=== PATIENT | female | born 1940 | race Caucasian/White ===

== ENCOUNTER → 2016-03-19 | Outpatient (REF) | payer MEDICARE ==
[~2016-03-19] MED LIST: /AMLO25TA PO; /FENO48TA PO; /OMEP10CA OR; ARIC5TAB PO; CEPH2CAP PO; CIPR250T3 PO; CO Q 10 PO; CQ 10 PO; CRAN400T2 PO; CRANBERRY PO; CRES20TA PO; FIBERCON PO; FISH100035 PO; GLIP5TAB2 OR; GLIP5TAB2 PO; GLUC850T PO; JANUVIA PO; LISI5TAB OR; MACR100C3 PO; MYRB25TA PO; OXYB5TAB5 OR; PRIL20CA PO; ROSU10TA OR; SENO8.6T9 PO; SERT25TA2 OR; SIMV20TA2 PO; STOOL SOFTNER PO; TYLE325T5 PO; VIT D 2000 PO; VITA50TA12 OR; ZOLO50TA PO; evista PO
[2016-03-19 10:47] LABS: MEAN CORPUSCULAR VOLUME 84.7 fl (80.0-96.0); RED CELL DISTRIBUTION WIDTH 15.2 % (11.5-14.5); WHITE BLOOD COUNT 6.3 K/mm3 (4.0-10.0)
[2016-03-19 11:18] LABS: CALCIUM LEVEL 8.4 MG/DL (8.8-10.2); CREATININE FOR GFR 1.18 MG/DL (0.55-1.02); GLOMERULAR FILTRATION RATE 47.2 (>39); POTASSIUM SERUM 4.3 MEQ/L (3.5-5.1)
== END ==
PROVIDERS: ATTEND Internal Medicine
DX: I10 Essential (primary) hypertension (principal)

== ENCOUNTER → 2016-05-06 | Outpatient (CLI) | payer MEDICARE, MEDICAID ==
[~2016-05-06] MED LIST changes: +E-Z PAQUE 60% w/v SUSP 355ML BOTTLE As Ordered ONE; +VARIBAR NECTAR 40% w/v 240ML SUSP BTL As Ordered ONE; +VARIBAR PUDDING 40% w/v 230ML TUBE As Ordered ONE
--- NOTE | 2016-05-06 11:26 | REP ---
Clinical: Dysphasia. Technique: Real time fluoroscopic evaluation in conjunction with speech pathology. Findings: Examination demonstrates normal deglutition and peristalsis through the oropharynx and visualized upper esophagus. No evidence for aspiration or laryngeal penetration. Surrounding soft tissues and osseous structures are normal. Total fluoroscopic time 1 minute 14 seconds . Impression: Normal modified barium swallow examination. Signed by Louis Mayorga MD 05/06/2016 11:17 A
== END ==
LOC: M RAD 10:29
PROVIDERS: ATTEND Family Medicine
DX: R13.10 Dysphagia, unspecified (principal)
CPT/HCPCS: 74230; 92611; G8996; G8997; G8998

== ENCOUNTER → 2016-05-07 | Outpatient (REF) | payer MEDICARE, MEDICAID ==
[~2016-05-07] MED LIST changes: -E-Z PAQUE 60% w/v SUSP 355ML BOTTLE As Ordered ONE; -VARIBAR NECTAR 40% w/v 240ML SUSP BTL As Ordered ONE; -VARIBAR PUDDING 40% w/v 230ML TUBE As Ordered ONE
[2016-05-07 09:29] LABS: MEAN CORPUSCULAR HEMOGLOBIN 28.7 pg (27.0-33.0); MEAN CORPUSCULAR HGB CONC 33.7 g/dl (32.0-36.5); MEAN CORPUSCULAR VOLUME 85.4 fl (80.0-96.0); RED CELL DISTRIBUTION WIDTH 13.8 % (11.5-14.5); WHITE BLOOD COUNT 5.5 K/mm3 (4.0-10.0)
[2016-05-07 09:50] LABS: ALBUMIN 3.4 GM/DL (3.2-5.2); ALBUMIN/GLOBULIN RATIO 1.13 (1.00-1.93); BILIRUBIN,TOTAL 0.3 MG/DL (0.2-1.0); CALCIUM LEVEL 8.9 MG/DL (8.8-10.2); CREATININE FOR GFR 1.05 MG/DL (0.55-1.02); POTASSIUM SERUM 4.1 MEQ/L (3.5-5.1); TOTAL PROTEIN 6.4 GM/DL (6.4-8.2)
== END ==
PROVIDERS: ATTEND Family Medicine
DX: E55.9 Vitamin D deficiency, unspecified (principal); E11.9 Type 2 diabetes mellitus without complications

== ENCOUNTER → 2016-05-25 | Outpatient (REF) | payer MEDICARE, MEDICAID | LOC: M LAB REF 16:58 | PROVIDERS: ATTEND Family Medicine | DX: N39.0 Urinary tract infection, site not specified (principal) ==

== ENCOUNTER → 2016-05-28 | Outpatient (CLI) | payer MEDICARE, MEDICAID ==
--- NOTE | 2016-05-28 14:08 | REP ---
LUMBAR SPINE SERIES: Five views. HISTORY: Low back pain. COMPARISON STUDY: June 24 2006. FINDINGS: Lumbar vertebral body heights are preserved and alignment is normal. There is degenerative disc disease with narrowing and sclerosis about the L3-4 disc. Degenerative disc changes are seen and L2-3 and L1-2 to a lesser degree. These changes are more pronounced than on the June 2006 prior study, particularly at L3-4. No fracture or collapse is seen. There is osteoarthritic facet hypertrophy and sclerosis bilaterally at L5-S1 and at L3-4. No bony destructive lesion is seen. Sacrum and SI joints are intact. There is some retained oral barium in left colonic diverticula indicating left colonic diverticulosis. IMPRESSION: Degenerative spondylosis changes. Degenerative disc disease is more pronounced than on the 2006 prior study. Left colonic diverticulosis. Signed by Timothy Olson MD 05/28/2016 03:18 P
== END ==
LOC: M RAD 13:21
PROVIDERS: ATTEND Family Medicine
DX: M54.5 Low back pain (principal); M47.816 Spondylosis without myelopathy or radiculopathy, lumbar region; M51.36 Other intervertebral disc degeneration, lumbar region; K57.30 Diverticulosis of large intestine without perforation or abscess without bleeding

== ENCOUNTER → 2016-06-27 | Outpatient (REF) | payer MEDICARE, MEDICAID | LOC: M LAB REF 22:00 | PROVIDERS: ATTEND Family Medicine | DX: R30.0 Dysuria (principal) ==

== ENCOUNTER 2016-09-09 05:51 | Emergency (ER) | payer MEDICARE, MEDICAID ==
[~2016-09-09] VITALS: Ht 152.4 cm; Wt 82.3 kg
[2016-09-09] MEDS ORDERED: ASPI81TA85 PO (06:33)
[2016-09-09] MEDS ORDERED: AMLO10TA PO (06:33)
[2016-09-09] MEDS ORDERED: VITA400C35 PO (06:33)
[2016-09-09] MEDS ORDERED: PLAV1TAB2 PO (06:33)
[2016-09-09] MEDS ORDERED: DULO30CA PO (06:33)
[2016-09-09] MEDS ORDERED: GLIP-162 PO (06:33)
[2016-09-09] MEDS ORDERED: TRAM50TA2 PO (06:33)
[2016-09-09] MEDS ORDERED: CO Q30CA PO (06:33)
[2016-09-09] MEDS ORDERED: MELA5TAB21 PO (06:33)
[2016-09-09] MEDS ORDERED: PRESCAP6 PO (06:33)
[2016-09-09] MEDS ORDERED: ATOR40TA75 PO (06:33)
[2016-09-09] MEDS ORDERED: TUMS500C PO (06:33)
[2016-09-09] MEDS ORDERED: VITA-137 PO (06:33)
[2016-09-09] MEDS ORDERED: SITA50TAB PO (06:33)
[2016-09-09] MEDS ORDERED: NYST1POW9 TOP (06:33)
[2016-09-09] MEDS ORDERED: COLA100C5 PO (06:33)
[2016-09-09] MEDS ORDERED: RANI1TAB38 PO (06:33)
--- NOTE | 2016-09-09 07:00 | REPUSA ---
CLINICAL HISTORY: Trauma. TECHNIQUE: Multiple axial CT images were obtained through the brain without IV contrast material. COMMENTS: Left frontal/ temporal subgaleal soft tissue hematoma. There is normal configuration of sella turcica. There are no intra or extra-axial collections. There is no mass effect or midline shift. There is no evidence of hematoma formation. No hydrocephalus is p resent. The ventricles are symmetrical. No abnormal calcifications are present. There is diffuse age-appropriate cerebellar and cerebral atrophy with proportionally dilated ventricl es and cortical sulci. There are bilateral periventricular and subcortical white matter hypolucencies compatible with mild c hronic microvascular disease. Otherwise, no significant focal abnormalities are seen either in the posterior fossa or supratentoria l compartment. IMPRESSION: 1. Age-appropriate cerebellar and cerebral atrophy. 2. Mild chronic microvascular disease. 3. No evidence of acute intracranial pathology. 4. Left frontal/ temporal subgaleal soft tissue hematoma. Thank you for your kind referral of this patient.
--- NOTE | 2016-09-09 07:10 | REPUSA ---
CLINICAL HISTORY: Neck pain. TECHNIQUE: Multiple axial images were obtained through the cervical spine. Images were also reconstru cted in coronal and sagittal planes. The study was performed without IV contrast. COMMENTS: Grade 1 anterolisthesis of C4 on C5. Grade one anterolisthesis of C5 on C6. There is no fracture or spondylolisthesis visualized. The paraspinal soft tissues are unremarkable. T here are no lytic or blastic lesions. Straightening of cervical lordosis is seen, suggesting muscular spasm. There is evidence of moderate multilevel disk disease, demonstrated by osteophytosis and endplate sclerosis. Thyromegaly with bilateral hypodense nodules. No airway narrowing or deviation. IMPRESSION: 1. No fracture. 2. Straightening of cervical lordosis is seen, suggesting muscular spasm. 3. Multilevel spondylosis. Thank you for your kind referral of this patient.
[2016-09-09] MEDS ORDERED: TETANUS/DIPHTHERIA TOX ADSORB ADULT 0.5ML SYR/VIAL (90714) IM ONE (07:15)
[2016-09-09] MEDS ORDERED: NORCO, ANEXSIA 5/325MG TABLET (HYDROcodone/ACETAMINOPHEN) PO ONE (07:15)
[2016-09-09 11:50] VITALS: BP 170/91
--- NOTE | 2016-09-09 12:13 | REP ---
Clinical: Trauma. Comparison: 05/28/2016 . Technique: AP, lateral, bilateral oblique, and coned-down views. Findings: Alignment and lordosis is maintained. The vertebral bodies including transverse process and spinous processes are intact and there is no evidence for acute fracture / compression injury or subluxation. Moderate to advanced multilevel degenerative changes include osteophytosis, endplate sclerosis, disc space narrowing, and hypertrophic facet changes. Atherosclerotic changes of the aorta again noted. Impression: Stable degenerative disc osteophyte complexes. No acute fracture / compression injury or subluxation Signed by Louis Mayorga MD 09/09/2016 08:14 A
== END 2016-09-09 12:58 | disposition home or self-care (01) ==
LOC: EDBD 05:51 → M ED 07:00
DX: S01.01XA Laceration without foreign body of scalp, initial encounter (principal); E11.9 Type 2 diabetes mellitus without complications; I10 Essential (primary) hypertension; F32.9 Major depressive disorder, single episode, unspecified; F02.80 Dementia in other diseases classified elsewhere, unspecified severity, without behavioral disturbance, psychotic disturbance, mood disturbance, and anxiety; W19.XXXA Unspecified fall, initial encounter; Y92.012 Bathroom of single-family (private) house as the place of occurrence of the external cause; Y99.9 Unspecified external cause status; Y93.9 Activity, unspecified; Z79.82 Long term (current) use of aspirin; Z79.899 Other long term (current) drug therapy

== ENCOUNTER → 2016-09-12 | Outpatient (REF) | payer MEDICARE, MEDICAID ==
[~2016-09-12] MED LIST changes: +AMLO10TA PO; +ASPI81TA85 PO; +ATOR40TA75 PO; +CO Q30CA PO; +COLA100C5 PO; +DULO30CA PO; +GLIP-162 PO; +MELA5TAB21 PO; +NYST1POW9 TOP; +PLAV1TAB2 PO; +PRESCAP6 PO; +RANI1TAB38 PO; +SITA50TAB PO; +TRAM50TA2 PO; +TUMS500C PO; +VITA-137 PO; +VITA400C35 PO
== END ==
PROVIDERS: ATTEND Family Medicine
DX: N39.0 Urinary tract infection, site not specified (principal)

== ENCOUNTER → 2016-11-21 | Outpatient (REF) | payer MEDICARE | LOC: M LAB REF 09:51 | PROVIDERS: ATTEND Family Medicine | DX: R30.0 Dysuria (principal) ==

== ENCOUNTER → 2016-12-17 | Outpatient (REF) | payer MEDICARE ==
[2016-12-17 11:18] LABS: BASO % 0.5 % (0.0-1.0); EOS # 0.1 10^3/uL (0.0-0.50); EOS % 2.3 % (0.0-3.0); IMMATURE GRANULOCYTE % 0.5 % (0-0); LYMPH # 0.9 10^3/uL (1.5-4.5); LYMPH % 16.1 % (24.0-44.0); MEAN CORPUSCULAR HGB CONC 32.9 g/dl (32.0-36.5); MEAN CORPUSCULAR VOLUME 88.2 fl (80.0-96.0); MONO # 0.5 10^3/uL (0.0-0.8); MONO % 8.2 % (0.0-5.0); NEUTROPHILS # 4.1 10^3/uL (1.8-7.7); NEUTROPHILS % 72.4 % (36.0-66.0); PLATELET COUNT, AUTOMATED 159 10^3/uL (150-450); RED CELL DISTRIBUTION WIDTH 13.4 % (11.5-14.5); WHITE BLOOD COUNT 5.6 10^3/uL (4.0-10.0)
[2016-12-17 11:19] LABS: ADD MANUAL DIFFER NO; DIFF SLIDE NUMBER 10
[2016-12-17 11:57] LABS: ALBUMIN 3.2 GM/DL (3.2-5.2); ALBUMIN/GLOBULIN RATIO 0.97 (1.00-1.93); BILIRUBIN,TOTAL 0.4 MG/DL (0.2-1.0); CALCIUM LEVEL 8.6 MG/DL (8.8-10.2); CREATININE FOR GFR 1.14 MG/DL (0.55-1.02); GLOMERULAR FILTRATION RATE 49.1 (>39); TOTAL PROTEIN 6.5 GM/DL (6.4-8.2)
== END ==
PROVIDERS: ATTEND Family Medicine
DX: E55.9 Vitamin D deficiency, unspecified (principal); E11.9 Type 2 diabetes mellitus without complications; I10 Essential (primary) hypertension

== ENCOUNTER → 2017-01-09 | Outpatient (REF) | payer MEDICARE ==
[~2017-01-09] MED LIST changes: +ASPI81CH PO; +LISI10TA4 PO; +MILKSUS PO
== END ==
LOC: M SMT 17:16
PROVIDERS: ATTEND Nurse Practitioner Women's Health
DX: R35.0 Frequency of micturition (principal)
CPT/HCPCS: 51798; 81001; 87086; G0463

== ENCOUNTER 2017-02-01 18:03 | Inpatient (IN) | payer MEDICARE ==
[~2017-02-01] VITALS: Ht 152.4 cm; Wt 79.8 kg
[~2017-02-01 18:03] MED LIST changes: -ASPI81CH PO; -LISI10TA4 PO; -MILKSUS PO
[2017-02-01 19:11] LABS: BASO % 0.2 % (0.0-1.0); IMMATURE GRANULOCYTE % 0.4 % (0-0); LYMPH # 0.3 10^3/uL (1.5-4.5); LYMPH % 2.3 % (24.0-44.0); MEAN CORPUSCULAR HEMOGLOBIN 29.1 pg (27.0-33.0); MEAN CORPUSCULAR HGB CONC 33.1 g/dl (32.0-36.5); MEAN CORPUSCULAR VOLUME 87.9 fl (80.0-96.0); MONO # 0.5 10^3/uL (0.0-0.8); MONO % 3.8 % (0.0-5.0); NEUTROPHILS # 12.3 10^3/uL (1.8-7.7); NEUTROPHILS % 93.3 % (36.0-66.0); PLATELET COUNT, AUTOMATED 149 10^3/uL (150-450); RED CELL DISTRIBUTION WIDTH 13.5 % (11.5-14.5); WHITE BLOOD COUNT 13.2 10^3/uL (4.0-10.0)
[2017-02-01 19:41] LABS: ALBUMIN 2.9 GM/DL (3.2-5.2); ALBUMIN/GLOBULIN RATIO 0.76 (1.00-1.93); ALKALINE PHOSPHATASE 124 U/L (45-117); ALT/SGPT 27 U/L (12-78); ANION GAP 10 MEQ/L (8-16); AST/SGOT 16 U/L (7-37); BILIRUBIN,DIRECT < 0.1 MG/DL (0.0-0.2); BILIRUBIN,TOTAL 0.3 MG/DL (0.2-1.0); BLOOD UREA NITROGEN 29 MG/DL (7-18); CALCIUM LEVEL 8.8 MG/DL (8.8-10.2); CARBON DIOXIDE LEVEL 23 MEQ/L (21-32); CHLORIDE LEVEL 106 MEQ/L (98-107); CREATININE FOR GFR 1.73 MG/DL (0.55-1.02); GLOMERULAR FILTRATION RATE 30.3 (>39); GLUCOSE, FASTING 352 MG/DL (83-110); POTASSIUM SERUM 3.8 MEQ/L (3.5-5.1); SODIUM LEVEL 139 MEQ/L (136-145); TOTAL PROTEIN 6.7 GM/DL (6.4-8.2)
[2017-02-01] MEDS ORDERED: fentaNYL 100 MCG/2 ML INJECTION (J3010) IV ONE (19:45)
--- NOTE | 2017-02-01 19:50 | REPUSA ---
CT of the cervical spine Clinical history: Pain. Trauma. Technique: Multiple axial CT images were obtained through the cervical spine without administration o f contrast. Coronal and sagittal 3-D reconstructed images were also obtained. Comparison: 09/09/2016. Findings: The cervical vertebral bodies are in satisfactory positioning and alignment. No fractures or dislocat ions are demonstrated. The odontoid process is intact. Intervertebral disc spaces are well-maintained . Moderate facet arthropathy with osteophytes are seen on the left at C4/C5 and C5/C6. There is no ev idence of facet subluxation. The neural foramen appear grossly patent. The cervical cranial junction is intact. The cervical spinal canal demonstrates normal caliber and contour without evidence of spin al stenosis. The surrounding soft tissues are within normal limits. Impression: No acute fracture or traumatic injury. Mild stable spondylosis.
[2017-02-01 19:57] LABS: VENOUS BASE EXCESS -1.5 (-2.0-2.0); VENOUS O2 SATURATION 97.7 % (60.0-80.0); VENOUS PARTIAL PRESSURE CO2 34.3 mmHg (38.0-50.0); VENOUS PARTIAL PRESSURE O2 96.1 mmHg (30.0-50.0); VENOUS STANDARD HCO3 23.3 MEQ/L; VENOUS TOTAL CO2 23.3 MEQ/L (24.0-28.0)
--- NOTE | 2017-02-01 20:00 | REPUSA ---
CT of the head Clinical history: trauma. Comparison: 09/09/2016. Protocol: Multiple axial CT images obtained with 5 mm slice thickness were obtained through the head without administration of contrast. Findings: The ventricles and sulci are symmetric but prominent in size bilaterally. There are periven tricular areas of low attenuation throughout the deep white matter. There is no evidence of acute hem orrhage or infarct. There is no midline shift, mass effect, or extra-axial fluid collection. The osse ous structures are unremarkable. The visualized paranasal sinuses and mastoid air cells are clear. Impression: No acute hemorrhage or infarct. Findings are consistent with mild age-related atrophy and chronic small vessel ischemic disease.
--- NOTE | 2017-02-01 20:00 | REPUSA ---
CT of the lumbar spine without contrast Clinical history: Pain. Trauma. Technique: Multiple axial CT images were obtained through the lumbar spine without administration of contrast. Coronal and sagittal 3-D reconstructed images were also obtained. Findings: The lumbar vertebral bodies are in satisfactory positioning and alignment. No fractures or dislocatio ns are demonstrated. Intervertebral disc spaces are moderately narrowed at L2/L3 and L3/L4 with mild disc osteophyte complexes. There is no evidence of facet subluxation. The neural foramen appear gross ly patent. The spinal canal demonstrates normal caliber and contour without evidence of spinal stenos is. The surrounding soft tissues are within normal limits. Impression: No acute fracture. Moderate degenerative disc disease at L2/L3 and L3/L4.
[2017-02-01] MEDS ORDERED: PIPERACILLIN/TAZOBACTAM SOD 3.375 GM in APPROPRIATE DILUENT 1 EA IV ONE (20:45)
[2017-02-01] MEDS ORDERED: NS IV SCH (21:00)
--- NOTE | 2017-02-01 21:10 | REPUSA ---
CT of the abdomen and pelvis without contrast Clinical statement: Pain. Technique: Multiple axial CT images were obtained from the base of the lungs to the floor of the pelv is utilizing 5 mm axial slices without administration of contrast. Coronal and sagittal reconstructio ns were also obtained. No comparison is available. Findings: Chest: The visualized lung bases are clear. Abdomen: The kidneys are normal in size bilaterally. There is no evidence of hydronephrosis or nephro lithiasis. The liver, spleen, pancreas, gallbladder and adrenal glands are unremarkable. The aorta de monstrates normal caliber and contour. There is no abdominal lymphadenopathy or ascites. Pelvis: The bowel is unremarkable, with no obstructive or inflammatory changes. Extensive sigmoid div erticulosis is noted without evidence of diverticulitis. The appendix is normal. The urinary bladder is within normal limits. There is no pelvic lymphadenopathy or ascites. The other pelvic structures a ppear unremarkable. Bones: There are no suspicious osseous abnormalities seen. Mild multilevel degenerative disc disease is noted throughout the visualized spine. Impression: 1. No evidence of hydronephrosis or nephrolithiasis. 2. No obstructive or inflammatory bowel changes. Extensive sigmoid diverticulosis. 3. Mild diffuse spondylosis of the spine.
[2017-02-01] MEDS ORDERED: ASPI81CH PO (21:47)
[2017-02-01] MEDS ORDERED: TUMS500C PO (21:47)
[2017-02-01] MEDS ORDERED: MILKSUS PO (21:47)
[2017-02-01] MEDS ORDERED: MYRB25TA PO (21:47)
[2017-02-01] MEDS ORDERED: LISI10TA4 PO (21:47)
[2017-02-01] MEDS ORDERED: CALCIUM CARBONATE 500 MG CHEW U/D PO PRN (23:15)
[2017-02-01] MEDS ORDERED: ACETAMINOPHEN 325 MG TAB PO PRN (23:15)
[2017-02-01] MEDS ORDERED: traMADol 50 MG TAB PO PRN (23:15)
[2017-02-01] MEDS ORDERED: MOM 30ML SUSPENSION UDC PO PRN (23:15)
[2017-02-01] MEDS ORDERED: GLUCOSE 4 GM CHEW TABLET PO PRN (23:45)
[2017-02-01] MEDS ORDERED: ONDANSETRON 4 MG TAB (S0181) PO PRN (23:45)
[2017-02-01] MEDS ORDERED: GLUCAGON FOR INJ 1 MG VIAL (J1610) SC PRN (23:45)
[2017-02-01] MEDS ORDERED: DEXTROSE 50% 50 ML SYRINGE IV PRN (23:45)
[2017-02-02] VITALS (8 sets, daily range): BP systolic 150–187; BP diastolic 58–100
[2017-02-02 01:00] LABS: MAGNESIUM LEVEL 1.9 MG/DL (1.8-2.4); PHOSPHORUS LEVEL 2.6 MG/DL (2.5-4.9)
[2017-02-02] MEDS: DONEPEZIL 5 MG TAB PO SCH ×2 (02:44→21:51)
[2017-02-02] MEDS: DULoxetine 30 MG CAP (CYMBALTA) PO SCH ×2 (02:44→21:52)
[2017-02-02] MEDS: ATORVASTATIN 20 MG TAB PO SCH ×2 (02:44→21:52)
[2017-02-02] MEDS: NS 1,000 ML IV SCH ×3 (02:45→21:50)
[2017-02-02] MEDS: HumaLOG INSULIN (NovoLOG) PER UNIT SC SCH ×5 (02:50→21:00)
[2017-02-02] MEDS: PIPERACILLIN/TAZOBACTAM SOD 3.375 GM in APPROPRIATE DILUENT 1 EA IV SCH ×4 (04:37→21:50)
[2017-02-02] MEDS: HEPARIN SOD (PORCINE) 5000 UNITS/ML VIAL SC SCH ×3 (06:05→21:51)
[2017-02-02 06:06] LABS: MEAN CORPUSCULAR HEMOGLOBIN 28.4 pg (27.0-33.0); MEAN CORPUSCULAR HGB CONC 32.6 g/dl (32.0-36.5); MEAN CORPUSCULAR VOLUME 87.3 fl (80.0-96.0); PLATELET COUNT, AUTOMATED 108 10^3/uL (150-450); RED CELL DISTRIBUTION WIDTH 13.7 % (11.5-14.5); WHITE BLOOD COUNT 6.6 10^3/uL (4.0-10.0)
[2017-02-02 06:27] LABS: CALCIUM LEVEL 8.1 MG/DL (8.8-10.2); CREATININE FOR GFR 1.14 MG/DL (0.55-1.02); GLOMERULAR FILTRATION RATE 49.1 (>39); POTASSIUM SERUM 3.8 MEQ/L (3.5-5.1)
[2017-02-02] MEDS ORDERED: hydrALAZINE INJ 20 MG/ML VIAL IV ONE (06:30)
--- NOTE | 2017-02-02 07:34 | HPEPDOC ---
General Date of Admission Feb 01, 2017 at 23:41 Primary Care Physician: NIEVES BARAJAS MD [facility] Attending Physician: REBEL JAUREGUI MD Chief Complaint The patient is a 76-year-old female admitted with a reason for visit of Severe Sepsis. Patient is a poor historian and resides at [facility]. PMH noticeable for Alzheimer's dementia, diabetes, frequent UTIs, CVA in 11/30 on aspirin and Plavix, HLD, HTN, CKD not on dialysis. Brought in by EMS after a non-injurious fall while walking with cane. Fingerstick revealed a blood sugar 538, and patient is reported to have had a temperature 100.6. Patient reportedly did not lose consciousness or hit her head. Per patient, she had no presyncopal symptoms including dizziness, lightheadedness, blurred vision. Patient denies loss of bowel and bladder function. Denies tongue biting, shaking/tremors, or skin cuts and bleeding. Patient denies all ROS except for pain in both legs from the fall. In the ED, patient was noted to have elevated white count 13.2, lactic acid 3.4 , alkaline phosphatase 124. Imaging of the head, neck, spine, abdomen and pelvis , hips, and chest were negative for acute concerns. Patient was given 1 dose of Zosyn & fluid bolus. Home Medications Scheduled (Preservision Areds 2) 1 Cap Cap, 1 CAP PO BID, (Reported) (Aspirin) 81 Mg Chw, 81 MG PO DAILY, (Reported) Atorvastatin Calcium (Atorvastatin Calcium) 40 Mg Tab, 40 MG PO QHS, (Reported) Cholecalciferol (Vitamin D3) 400 Unit Cap, 400 UNIT PO DAILY, (Reported) Clopidogrel Bisulfate (Plavix) 75 Mg Tab, 75 MG PO DAILY, (Reported) Docusate Sodium (Colace) 100 Mg Cap, 100 MG PO BID, (Reported) Donepezil Hydrochloride (Aricept) 5 Mg Tab, 5 MG PO QHS, (Reported) Duloxetine Hcl (Cymbalta) 30 Mg Cap, 30 MG PO QHS, (Reported) Glipizide (Glipizide Xl) 5 Mg Tab, 5 MG PO DAILY, (Reported) Lisinopril (Lisinopril) 10 Mg Tab, 10 MG PO DAILY, (Reported) Melatonin (Melatonin) 5 Mg Tab, 5 MG PO QHS, (Reported) Mirabegron Base (Myrbetriq) 25 Mg Tab, 25 MG PO DAILY, (Reported) Nystatin (Nystatin Powder) 100,000 Unit/Gm Pow, 1 DOSE TOP BID, (Reported) Ranitidine Hcl (Ranitidine Maximum Streng) 150 Mg Tab, 1 TAB PO QHS, (Reported) Sitagliptin (Januvia) 50 Mg Tab, 50 MG PO DAILY, (Reported) Tocopheryl Acetate, Dl-Alpha (Vitamin E) 400 Unit Chw, 400 UNIT PO DAILY, ( Reported) Scheduled PRN Acetaminophen (Tylenol) 325 Mg Tab, 650 MG PO Q4H PRN for PAIN OR FEVER, ( Reported) Calcium Carbonate (Tums) 500 Mg Chw, 1,000 MG PO Q4H PRN for HEARTBURN, ( Reported) Milk Of Magnesia (Milk of Magnesia) 1,200 Mg/15 Ml Brittani, 30 ML PO DAILY PRN for CONSTIPATION, (Reported) Tramadol HCl (Tramadol HCl) 50 Mg Tab, 50 MG PO Q6H PRN for PAIN, (Reported) Allergies Coded Allergies: No Known Allergies (Verified , 07/24/11) Past Medical History Medical History CVA 11/30, on aspirin and Plavix Alzheimer's dementia Frequent UTIs HLD HTN CKD Depression GERD Social History * Smoker: Denies, non-smoker Alcohol: Denies Drugs: denies Recent Travel/Sick Contacts: Denies: Recent travel, Recent sick contacts Review of Symptoms Constitutional: Denies: Chills, Fever, Malaise, Weakness Eyes: Denies: Pain, Vision change ENT: Denies: Head Aches, Ear Pain, Dysphagia Skin: Denies: Bruising Pulmonary: Denies: Dyspnea, Cough Cardiovascular: Denies: Chest Pain, Palpitations, Lt Headedness Gastrointestinal: Denies: Nausea, Vomiting, Abdominal Pain, Diarrhea, Constipation, Melena, Hematochezia Genitourinary: Denies: Dysuria, Incontinence, Hematuria Musculoskeletal: Reports: Leg Pain (bilaterally) Neurological: Reports: Confusion (per reports, pt is more confused than baseline), Denies: Weakness, Numbness, Change in speech, Seizures Psych: Reports: Memory Issues (Alzheimer Dementia) Physical Examination General Exam: Positive: Cooperative, No Acute Distress Eye Exam: Positive: Conjunctiva & lids normal, EOMI, Negative: Ptosis ENT Exam: Positive: Atraumatic, Tongue Midline, Nares Patent, Pinna Normal, Negative: Pharyngeal Edema Neck Exam: Positive: Supple, Negative: +2 carotid pulse wo bruit, Lymphadenopathy Chest Exam: Positive: Clear to auscultation, Normal air movement, Negative: Wheezing Heart Exam: Positive: Tachycardic, Regular Rhythm, Normal S1, Normal S2 Abdomen Exam: Positive: Normal bowel sounds, Soft, Negative: Tenderness Extremity Exam: Positive: Normal pulses, Tenderness (b/l to touch & palpation) , Negative: Cyanosis Neuro Exam: Positive: Sensation Intact, Negative: Strength at 5/5 X4 ext (5/5 b/l UE, 3/5 LE due to pain) Psych Exam: Negative: Mental status NL, Memory Intact, Oriented x 3 (only to self) Vital Signs Vital Signs Date Time Temp Pulse Resp B/P (MAP) Pulse Ox O2 Delivery O2 Flow Rate FiO2 02/02/17 00:18 112 16 90 Room Air 02/01/17 23:33 144/91 (108) 02/01/17 18:18 97.8 Laboratory Data Labs 24H Laboratory Tests 2 02/01/17 19:00: Osmolality 310H 02/01/17 19:02: Immature Granulocyte % (Auto) 0.4H, White Blood Count 13.2H, Red Blood Count 4.37, Hemoglobin 12.7, Hematocrit 38.4, Mean Corpuscular Volume 87.9, Mean Corpuscular Hemoglobin 29.1, Mean Corpuscular Hemoglobin Concent 33.1, Red Cell Distribution Width 13.5, Platelet Count 149L, Neutrophils (%) (Auto) 93.3H, Lymphocytes (%) (Auto) 2.3L, Monocytes (%) (Auto) 3.8, Eosinophils (%) (Auto) 0.0, Basophils (%) (Auto) 0.2, Neutrophils # (Auto) 12.3H, Lymphocytes # (Auto) 0.3L, Monocytes # (Auto) 0.5, Eosinophils # (Auto) 0.0, Basophils # (Auto) 0.0, Immature Granulocyte # (Auto) 0.1H, Nucleated Red Blood Cells % (auto) 0.0, Anion Gap 10, Glomerular Filtration Rate 30.3L, Lactic Acid Level 3.4*H, Calcium Level 8.8, Aspartate Amino Transf (AST/SGOT) 16, Alanine Aminotransferase (ALT/SGPT) 27, Alkaline Phosphatase 124H, Total Bilirubin 0.3, Direct Bilirubin < 0.1, Total Protein 6.7, Albumin 2.9L, Albumin/Globulin Ratio 0.76L 02/01/17 19:46: Blood Gas Bicarbonate Standard 23.3, Venous Blood pH 7.429, Venous Blood Partial Pressure CO2 34.3L, Venous Blood Partial Pressure O2 96.1H, Venous Blood Total Carbon Dioxide 23.3L, Venous Blood HCO3 22.2L, Venous Blood Oxygen Saturation 97.7H, Venous Blood Base Excess -1.5 02/01/17 21:02: Urine Appearance HAZY, Urine Color YELLOW, Urine pH 5.0, Urine Specific Lamar 1.014, Urine Protein 2+H, Urine Glucose (UA) 1+H, Urine Ketones NEGATIVE, Urine Urobilinogen 0.2, Urine Bilirubin NEGATIVE, Urine Leukocyte Esterase NEGATIVE, Urine Blood NEGATIVE, Urine Nitrite NEGATIVE, Urine WBC (Auto) 0, Urine RBC ( Auto) 1, Urine Hyaline Casts (Auto) 0, Urine Bacteria (Auto) NEGATIVE, Urine Squamous Epithelial Cells 0, Urine Mucus (Auto) SMALL, Urine Sperm (Auto) 02/01/17 23:02: Bedside Glucose (Misc Panel) 207H 02/02/17 00:18: 02/02/17 00:23: CBC/BMP Laboratory Tests 02/01/17 19:02 Red Blood Count 4.37, Mean Corpuscular Volume 87.9, Mean Corpuscular Hemoglobin 29.1, Mean Corpuscular Hemoglobin Concent 33.1, Red Cell Distribution Width 13.5 , Neutrophils (%) (Auto) 93.3 H, Lymphocytes (%) (Auto) 2.3 L, Monocytes (%) ( Auto) 3.8, Eosinophils (%) (Auto) 0.0, Basophils (%) (Auto) 0.2, Neutrophils # ( Auto) 12.3 H, Lymphocytes # (Auto) 0.3 L, Monocytes # (Auto) 0.5, Eosinophils # (Auto) 0.0, Basophils # (Auto) 0.0 Microbiology Microbiology 02/01/17 Blood Culture, Received Pending 02/01/17 Blood Culture, Received Pending 02/01/17 Influenza Virus Type A Antigen - Final, Complete 02/01/17 Influenza Virus Type B Antigen - Final, Complete 02/01/17 Urine Culture, Received Pending Assessment/Plan SIRS Pt presented after a fall from legs feeling week. Admission labs revealed WBC 13.2 & lactic acidosis & elevated alk phos, along with tachycardia at 118bpm. Pt denies fever, chills. Per reports, pt had 100.6 temp after fall, but was normal 97.8 in ED. UA is negative of signs of infection, thus UTI is less likely. Although WBC may be reactionary 2/2 fall, she meets SIRS criteria. Will continue Zosyn from ED for broad spectrum coverage and adjust as labs reveal infectious source. CT abd/pelvis was negative for acute concerns Blood & urine cultures pending Influenza negative Fall 2/2 deconditioning non-injurious fall. Pt resides at [facility] and ambulates with rolling walker no presyncopal symptoms, loss of bowel/bladder, tongue biting, loss of consciousness no fractures or bony pathology on imaging thus far (CT cervical, lumbar, and head CT) CXR & Hip/pelvis x-ray reads pending PT consulted for functional optimization Diabetes, uncontrolled Pt reportedly had FS glucose of 538 when checked by EMS after she fell. On admission, pt was 352. hold home Glipizide & Januvia. Will start pt on ISS & consistent carb diet with fingersticks Lactic Acidosis level of 3.4 on admission, which normalized when rechecked in 4 hours after pt administered 1 dose Zosyn & fluid bolus. May be reactionary from fall. Monitor Hx frequent UTIs per previous admission notes, pt has hx of falling more often when she has a UTI. She has a hx of E.Coli in urine, resistant to Bactrim & Fluoroquinolones. UA on this admission is negative for signs of infection. Pt denies dysuria, pelvic pain, urgency. Monitor Hx CVA continue home ASA, Pavix CKD controlled. Monitor GERD hold home Ranitidine. Start inpt Protonix HTN continue home Lisinopril HLD continue home statin CAD on ASA, statin, Lisandro-i Alzheimer's Dementia continue Donepezil Depression stable. continue Duloxetine DVT ppx heparin sc, SCD/JERED Plan / VTE VTE Prophylaxis Ordered?: Yes GME ATTESTATION GME ATTESTATION My faculty preceptor for this patient encounter was physically present during the encounter and was fully available. All aspects of the patient interview, examination, medical decision making process, and medical care plan development were reviewed and approved by the faculty preceptor. The faculty preceptor is aware and concurs with the plan as stated in the body of this note and will attest to such by his/her cosignature. ATTENDING NOTE I have seen and examined the patient as did the resident I have reviewed the case and discussed the plan with her. I concur with her findings on HX and PE and Agree with her A&P with the following Additions/ Exceptions Patient with SIRS and a suspected Infectious source so will treat as sepsis so a 2MN stay is expected. DEXTER MCGOVERN DO Feb 02, 2017 01:20 CARLEY MENDOZA MD Feb 04, 2017 19:17
[2017-02-02] MEDS: ASPIRIN 81 MG CHEW TABLET PO SCH (08:47)
[2017-02-02] MEDS: DOCUSATE SODIUM 100 MG CAP PO SCH ×2 (08:47→21:52)
[2017-02-02] MEDS: LISINOPRIL 10 MG TAB PO SCH (08:47)
[2017-02-02] MEDS: CLOPIDOGREL 75 MG TAB PO SCH (08:47)
[2017-02-02] MEDS: PANTOPRAZOLE 40MG TAB (PROTONIX) PO SCH (08:47)
[2017-02-02] MEDS: VITAMIN D (CHOLECALCIFEROL) 400 INTERNATIONAL UNITS TAB PO SCH (08:47)
[2017-02-02] MEDS: NYSTATIN 100,000 UNITS/GM TOPICAL PWD 15 GM TOP SCH ×2 (08:48→21:00)
--- NOTE | 2017-02-02 10:00 | REP ---
CHEST, TWO VIEWS: Two views of the chest are performed and compared to a prior study of 10/03/2013. There is poor ventilation with mild bibasilar fibroatelectatic change. I see no definite consolidating infiltrate. Heart does not appear to be significantly enlarged. There is mild calcification of the thoracic aorta. Mediastinal silhouette is unchanged. IMPRESSION: Mild bibasilar fibroatelectatic change. No definite acute consolidating infiltrate. Signed by Ruddy Howell MD 02/02/2017 05:29 P
--- NOTE | 2017-02-02 12:32 | REP ---
PELVIS AND BILATERAL HIPS: AP view of pelvis and AP and frogleg views of bilateral hips are performed. There is no evidence of acute fracture or dislocation. No intrinsic osseous pathology is seen. There is mild narrowing and subchondral sclerosis at the sacroiliac joints and at both hip joints. IMPRESSION: Mild degenerative changes. No other significant abnormality. Signed by Ruddy Howell MD 02/02/2017 05:36 P
--- NOTE | 2017-02-02 14:12 | IPNPDOC ---
Text Note Date of Service The patient was seen on 02/02/17. NOTE Subjective: Pt feels well. Denies any complaints. No CP/SOB/cough/rash/abd pain/ diarrhea/sore throat/ dysuria. Objective: Vitals: (see below) General: No acute distress, laying comfortably in bed. HEENT: Moist mucous membranes. Neck: No JVD or lymphadenopathy Cardiac: RRR, No murmurs Pulm: Clear to auscultation b/l. No wheezing, rhonchi Abd: NT/ND + BS Ext: No edema or cyanosis Alert and Oriented to person only. Labs (see below) Images: Assessment/Plan 1. S/p mechanical fall - no Fx. No syncope. PT ordered 2. SIRS with possible sepsis. No source noted at this point. On Broad spectrum abx pending cultures. 3. DM - Hold PO Meds. On SSI, carb consistent diet 4. Lactic acidosis resolved 5. H/o frequent UTIs. UA negative. 6. H/o CVA on plavix/ASA 7. SORAYA on CKD improved with IVF. Avoid nephrotoxins. Cont to monitor. 8. GERD- on PPI 9. HTN - cont home meds 10. HLD on statin 11. CAD cont home meds. 12. Alzheimer's dz - on donepezil DVT prophy: Heparin SQ VS,Fishbone, I+O VS, Fishbone, I+O Laboratory Tests 02/01/17 19:02 Red Blood Count 4.37, Mean Corpuscular Volume 87.9, Mean Corpuscular Hemoglobin 29.1, Mean Corpuscular Hemoglobin Concent 33.1, Red Cell Distribution Width 13.5 , Neutrophils (%) (Auto) 93.3 H, Lymphocytes (%) (Auto) 2.3 L, Monocytes (%) ( Auto) 3.8, Eosinophils (%) (Auto) 0.0, Basophils (%) (Auto) 0.2, Neutrophils # ( Auto) 12.3 H, Lymphocytes # (Auto) 0.3 L, Monocytes # (Auto) 0.5, Eosinophils # (Auto) 0.0, Basophils # (Auto) 0.0 02/02/17 05:31 Red Blood Count 3.94 L, Mean Corpuscular Volume 87.3, Mean Corpuscular Hemoglobin 28.4, Mean Corpuscular Hemoglobin Concent 32.6, Red Cell Distribution Width 13.7, Calcium Level 8.1 L Vital Signs Date Time Temp Pulse Resp B/P (MAP) Pulse Ox O2 Delivery O2 Flow Rate FiO2 02/02/17 12:38 98.2 100 18 150/58 (88) 93 Room Air I&O- Last 24 Hours up to 6 AM 02/03/17 06:00 Intake Total 30 ml Output Total 0 ml Balance 30 ml REBEL JAUREGUI MD Feb 02, 2017 14:11
--- NOTE | 2017-02-02 20:34 | IPNPDOC ---
Text Note Date of Service The patient was seen on 02/02/17. NOTE Hydralazine given 25mg PO for elevated BP. VS,Fishbone, I+O VS, Fishbone, I+O Laboratory Tests 02/02/17 05:31 Red Blood Count 3.94 L, Mean Corpuscular Volume 87.3, Mean Corpuscular Hemoglobin 28.4, Mean Corpuscular Hemoglobin Concent 32.6, Red Cell Distribution Width 13.7, Calcium Level 8.1 L Vital Signs Date Time Temp Pulse Resp B/P (MAP) Pulse Ox O2 Delivery O2 Flow Rate FiO2 02/02/17 16:00 100.4 88 19 160/74 (102) 95 Room Air I&O- Last 24 Hours up to 6 AM 02/03/17 06:00 Intake Total 1380 ml Output Total 0 ml Balance 1380 ml CARLEY MENDOZA MD Feb 02, 2017 20:34
[2017-02-02] MEDS ORDERED: **hydrALAZINE HCL** 25 MG TAB PO ONE (21:00)
--- NOTE | 2017-02-02 21:35 | ECGEPIP ---
Stationary ECG Study [facility] - ED Test Date: 2017-02-01 Pat Name: FELICE SPENCER Department: Room: [place] [address] Gender: F Health Navigator: avril : 1940 Requested By: ROCIO Morfin Order Number: [id number] Reading MD: Angy Dumont Measurements Intervals Amelia Rate: 114 P: 56 MO: 158 QRS: 2 QRSD: 88 T: 56 QT: 315 QTc: 435 Interpretive Statements SINUS TACHYCARDIA NONSPECIFIC T-WAVE ABNORMALITY ABNORMAL RHYTHM ECG SIMILAR 03/01/12 Electronically Signed On 02-02-2017 21:35:11 EST by Angy Dumont
[2017-02-03] VITALS (7 sets, daily range): BP systolic 144–182; BP diastolic 65–100
[2017-02-03] MEDS: PIPERACILLIN/TAZOBACTAM SOD 3.375 GM in APPROPRIATE DILUENT 1 EA IV SCH ×4 (05:19→22:21)
[2017-02-03] MEDS: LISINOPRIL 10 MG TAB PO SCH (05:19)
[2017-02-03] MEDS: HEPARIN SOD (PORCINE) 5000 UNITS/ML VIAL SC SCH (05:19)
[2017-02-03 05:42] LABS: MEAN CORPUSCULAR HGB CONC 33.6 g/dl (32.0-36.5); MEAN CORPUSCULAR VOLUME 86.3 fl (80.0-96.0); RED CELL DISTRIBUTION WIDTH 13.4 % (11.5-14.5); WHITE BLOOD COUNT 4.4 10^3/uL (4.0-10.0)
[2017-02-03 06:11] LABS: ANION GAP 9 MEQ/L (8-16); BLOOD UREA NITROGEN 12 MG/DL (7-18); CALCIUM LEVEL 7.9 MG/DL (8.8-10.2); CARBON DIOXIDE LEVEL 22 MEQ/L (21-32); CHLORIDE LEVEL 111 MEQ/L (98-107); CREATININE FOR GFR 0.94 MG/DL (0.55-1.02); GLOMERULAR FILTRATION RATE > 60.0 (>39); GLUCOSE, FASTING 129 MG/DL (83-110); POTASSIUM SERUM 3.7 MEQ/L (3.5-5.1); SODIUM LEVEL 142 MEQ/L (136-145)
[2017-02-03 06:19] LABS: PLATELET COUNT, AUTOMATED 88 10^3/uL (150-450)
[2017-02-03] MEDS ORDERED: LISINOPRIL 20 MG TAB PO ONE (08:30)
[2017-02-03] MEDS: HumaLOG INSULIN (NovoLOG) PER UNIT SC SCH ×4 (08:57→21:00)
[2017-02-03] MEDS: VITAMIN D (CHOLECALCIFEROL) 400 INTERNATIONAL UNITS TAB PO SCH (08:58)
[2017-02-03] MEDS: ASPIRIN 81 MG CHEW TABLET PO SCH (08:58)
[2017-02-03] MEDS: PANTOPRAZOLE 40MG TAB (PROTONIX) PO SCH (08:58)
[2017-02-03] MEDS: DOCUSATE SODIUM 100 MG CAP PO SCH ×2 (08:58→21:00)
[2017-02-03] MEDS: NS 1,000 ML IV SCH ×2 (08:58→19:09)
[2017-02-03] MEDS: NYSTATIN 100,000 UNITS/GM TOPICAL PWD 15 GM TOP SCH ×2 (08:59→22:21)
[2017-02-03] MEDS: CLOPIDOGREL 75 MG TAB PO SCH (08:59)
[2017-02-03] MEDS ORDERED: amLODIPine 5 MG TAB PO SCH (09:00)
--- NOTE | 2017-02-03 13:59 | IPNPDOC ---
Text Note Date of Service The patient was seen on 02/03/17. NOTE Subjective: Pt feels well. Denies any complaints. Objective: Vitals: (see below) General: No acute distress, laying comfortably in bed. HEENT: Moist mucous membranes. Neck: No JVD or lymphadenopathy Cardiac: RRR, No murmurs Pulm: Clear to auscultation b/l. No wheezing, rhonchi Abd: NT/ND + BS Ext: No edema or cyanosis Alert and Oriented to person only. Labs (see below) Images: Assessment/Plan 1. S/p mechanical fall - no Fx. No syncope. PT ordered. MRI to r/o CVA. 2. SIRS with possible sepsis. No source noted at this point. On Broad spectrum abx pending cultures. 3. DM - Hold PO Meds. On SSI, carb consistent diet 4. Lactic acidosis resolved 5. H/o frequent UTIs. UA negative. 6. H/o CVA on plavix/ASA 7. SORAYA on CKD improved with IVF. Avoid nephrotoxins. Cont to monitor. 8. GERD- on PPI 9. HTN - cont home meds 10. HLD on statin 11. CAD cont home meds. 12. Alzheimer's dz - on donepezil DVT prophy: Heparin SQ VS,Fishbone, I+O VS, Fishbone, I+O Laboratory Tests 02/03/17 05:27 Red Blood Count 3.93 L, Mean Corpuscular Volume 86.3, Mean Corpuscular Hemoglobin 29.0, Mean Corpuscular Hemoglobin Concent 33.6, Red Cell Distribution Width 13.4, Calcium Level 7.9 L Vital Signs Date Time Temp Pulse Resp B/P (MAP) Pulse Ox O2 Delivery O2 Flow Rate FiO2 02/03/17 12:00 98.1 103 17 165/77 (106) 94 Room Air I&O- Last 24 Hours up to 6 AM 02/04/17 06:00 Intake Total 350 ml Output Total 200 ml Balance 150 ml REBEL JAUREGUI MD Feb 03, 2017 13:59
--- NOTE | 2017-02-03 16:09 | REP ---
MRI brain without contrast: History: History of a fall with confusion. Comparison CT study February 01, 2017. Technique: Axial and sagittal imaging planes are utilized for T1 and T2-weighted scans. Sequences include spin-echo, fast spin echo, FLAIR, and diffusion weighted sequences. MRI findings: There is a small scalp nodules demonstrating low T1 and low T2 signal intensity in the left vertex corresponding with the calcification here seen on CT. No bony calvarial lesion is seen by MR. Craniocervical junction upper cervical cord are normal in appearance. There is diffuse cerebral and cerebellar volume loss as seen on CT study. There are fairly extensive small vessel atherosclerotic changes. Diffusion weighted scans show no evidence of restricted diffusion to suggest acute ischemia. There is no evidence of intracranial hemorrhage. No infarct, mass, extra-axial fluid collection or midline shift is seen. Impression: Diffuse atrophy and small vessel changes. No acute intracranial lesion seen. Signed by Timothy Olson MD 02/03/2017 05:21 P
[2017-02-03] MEDS ORDERED: amLODIPine 5 MG TAB PO ONE (16:45)
[2017-02-03 17:39] LABS: REASON FOR REVIEW PLATELET MORPHOLOGY
[2017-02-03] MEDS: DONEPEZIL 5 MG TAB PO SCH (22:20)
[2017-02-03] MEDS: ATORVASTATIN 20 MG TAB PO SCH (22:20)
[2017-02-03] MEDS: DULoxetine 30 MG CAP (CYMBALTA) PO SCH (22:20)
[2017-02-04] MEDS: NS 1,000 ML IV SCH (02:08)
[2017-02-04 04:00] VITALS: BP 160/92
[2017-02-04] MEDS: PIPERACILLIN/TAZOBACTAM SOD 3.375 GM in APPROPRIATE DILUENT 1 EA IV SCH (04:00)
[2017-02-04] MEDS ORDERED: LORazepam 2 MG/ML VIAL (J2060) IM PRN (04:30)
[2017-02-04] MEDS: HumaLOG INSULIN (NovoLOG) PER UNIT SC SCH ×4 (07:30→21:00)
[2017-02-04] MEDS: amLODIPine 10 MG TAB PO SCH (09:00)
[2017-02-04] MEDS: CLOPIDOGREL 75 MG TAB PO SCH (09:00)
[2017-02-04] MEDS: PANTOPRAZOLE 40MG TAB (PROTONIX) PO SCH (09:00)
[2017-02-04] MEDS: CEFDINIR 300 MG CAP (OMNICEF) PO SCH ×2 (09:00→21:49)
[2017-02-04] MEDS: DOCUSATE SODIUM 100 MG CAP PO SCH ×2 (09:00→21:48)
[2017-02-04] MEDS ORDERED: HALOPERIDOL 5 MG/ML VIAL (J1630) IM PRN (09:00)
[2017-02-04] MEDS: VITAMIN D (CHOLECALCIFEROL) 400 INTERNATIONAL UNITS TAB PO SCH (09:00)
[2017-02-04] MEDS: LISINOPRIL 10 MG TAB PO SCH (09:00)
[2017-02-04] MEDS: NYSTATIN 100,000 UNITS/GM TOPICAL PWD 15 GM TOP SCH ×2 (09:00→21:00)
[2017-02-04] MEDS: ASPIRIN 81 MG CHEW TABLET PO SCH (09:00)
--- NOTE | 2017-02-04 09:49 | IPN ---
DATE: 02/04/2017 Ms. Unger is somewhat resistant to exam today. She is refusing her medications. She has no complaints of pain, chest pain, shortness of breath, but appears somewhat confused and is not a useful historian. Temperature is 98.3, pulse 102, respiratory rate 18, blood pressure 160/92, 95% on room air. Positive fluid balance of 1638. Two bowel movements yesterday. She is refusing exam. She is somewhat uncomfortable. She is alert to self. She does not know who the president is. She does not know where she is. Breathing is symmetrical, rested. She is not tachypneic. There is no accessory muscle use. There are no laboratories from this morning. Urine culture from the 18 is negative. Influenza swab from the is negative. Blood cultures from the 18 negative. Brain MRI from yesterday is unremarkable. Abdominal and pelvic CT from the shows diverticulosis. ASSESSMENT: This is a 76-year-old with metabolic encephalopathy, status post fall from assisted living at [facility]. PLAN: 1. The patient is status post mechanical fall. No obvious pain or discomfort. No significant arrhythmia on the monitor, although she has taken off her monitor. She will likely not comply with physical therapy (PT) today. MRI showed no evidence of stroke. 2. The patient had systemic inflammatory response syndrome (SIRS) with possible sepsis. No cultures have come back positive. There is no focal complaint at the moment. She is on Omnicef, which she is going to refuse today. 3. The patient has diabetes and on sliding scale insulin. Has not taken breakfast this morning. 4. The patient has resolved lactic acidosis. 5. The patient has a history of frequent urinary tract infection (UTI). UA was negative. 6. The patient has resolved acute kidney injury. Laboratories are not available this morning. 7. The patient has hypertension. 8. The patient has hyperlipidemia. 9. The patient has Alzheimer's dementia and assisted living level of care, which she is certainly not at currently. 10. The patient has a history of coronary artery disease.
[2017-02-04] MEDS ORDERED: SLF 3 ML SYR IV PRN (11:15)
[2017-02-04] MEDS: SLF 3 ML SYR IV SCH ×2 (13:56→21:54)
[2017-02-04 16:00] VITALS: BP 176/88
[2017-02-04 20:00] VITALS: BP 190/88
[2017-02-04] MEDS: ATORVASTATIN 20 MG TAB PO SCH (21:48)
[2017-02-04] MEDS: DULoxetine 30 MG CAP (CYMBALTA) PO SCH (21:48)
[2017-02-04] MEDS: risperiDONE 0.25 MG TAB PO SCH (21:49)
[2017-02-04] MEDS: DONEPEZIL 5 MG TAB PO SCH (21:49)
[2017-02-04 23:59] VITALS: BP 161/72
[2017-02-05 04:00] VITALS: BP 178/85
[2017-02-05] MEDS: SLF 3 ML SYR IV SCH ×3 (05:27→20:41)
[2017-02-05 05:56] LABS: MEAN CORPUSCULAR HEMOGLOBIN 28.2 pg (27.0-33.0); MEAN CORPUSCULAR HGB CONC 32.8 g/dl (32.0-36.5); MEAN CORPUSCULAR VOLUME 85.8 fl (80.0-96.0); PLATELET COUNT, AUTOMATED 120 10^3/uL (150-450); RED CELL DISTRIBUTION WIDTH 13.3 % (11.5-14.5)
[2017-02-05 06:00] LABS: CALCIUM LEVEL 8.3 MG/DL (8.8-10.2); CREATININE FOR GFR 0.96 MG/DL (0.55-1.02); GLOMERULAR FILTRATION RATE 59.8 (>39); POTASSIUM SERUM 3.3 MEQ/L (3.5-5.1)
[2017-02-05] MEDS ORDERED: POTASSIUM CHLORIDE 10 MEQ SR TABLET PO ONE (07:15)
[2017-02-05 08:00] VITALS: BP 155/72
[2017-02-05] MEDS: risperiDONE 0.25 MG TAB PO SCH ×2 (08:38→20:40)
[2017-02-05] MEDS: DOCUSATE SODIUM 100 MG CAP PO SCH ×2 (08:38→20:40)
[2017-02-05] MEDS: PANTOPRAZOLE 40MG TAB (PROTONIX) PO SCH (08:38)
[2017-02-05] MEDS: VITAMIN D (CHOLECALCIFEROL) 400 INTERNATIONAL UNITS TAB PO SCH (08:38)
[2017-02-05] MEDS: CEFDINIR 300 MG CAP (OMNICEF) PO SCH ×2 (08:38→20:40)
[2017-02-05] MEDS: CLOPIDOGREL 75 MG TAB PO SCH (08:38)
[2017-02-05] MEDS: ASPIRIN 81 MG CHEW TABLET PO SCH (08:39)
[2017-02-05] MEDS: amLODIPine 10 MG TAB PO SCH (08:39)
[2017-02-05] MEDS: NYSTATIN 100,000 UNITS/GM TOPICAL PWD 15 GM TOP SCH ×2 (08:40→20:41)
[2017-02-05] MEDS: LISINOPRIL 10 MG TAB PO SCH (08:40)
[2017-02-05] MEDS: HumaLOG INSULIN (NovoLOG) PER UNIT SC SCH ×4 (08:41→20:41)
[2017-02-05 12:00] VITALS: BP 168/97
--- NOTE | 2017-02-05 14:16 | IPN ---
DATE: 02/05/2017 Ms. Unger is much more interactive this morning. She is apologetic for her behavior yesterday. She has no complaints of pain, chest pain, shortness of breath. She has frequent urinary tract infections, is not complaining of any dysuria at the moment. She does have what she describes as chronic increased frequency. Temperature is 99, pulse 92, respiratory rate 20, blood pressure 155/72, 94% on room air. Input and output notable for a positive fluid balance of 195. One bowel movement noted yesterday. She is awake, appropriately interactive, does not remember me from previous encounters. Cannot tell me the name of the president. NECK: Supple. LUNGS: Breathing is symmetrical and rested. No accessory muscle use. Speaking in complete sentences. HEART: Regular rate and rhythm. Radial pulses are 2+. Capillary refill is less than 2 seconds. ABDOMEN: No abdominal distention. Nontender to palpation. Active bowel sounds. LABORATORY DATA: White cell count 4, hemoglobin 11.3, platelets 120. BUN 16, creatinine 0.96, potassium 3.3. ASSESSMENT: This is a 76-year-old with metabolic encephalopathy, status post fall from assisted living at [facility]. PLAN: 1. The patient is status post mechanical fall. She is not complaining of any pain or discomfort. She has not had significant arrhythmia on the monitor, which she has been wearing over the course of the evening. She will be able to have physical therapy today. MRI showed no evidence of stroke. 2. The patient has systemic inflammatory response syndrome (SIRS) with possible sepsis at the time of presentation. Cultures have been negative. I am going to repeat UA today based on her metabolic encephalopathy from yesterday. She is improved. She is on a low dose of Risperdal, which is a long-term medication for her. 3. The patient has diabetes and on sliding scale insulin. Has eaten breakfast. 4. The patient has resolved lactic acidosis. 5. The patient has resolved acute kidney injury. 6. The patient has hypertension. 7. The patient has hyperlipidemia. 8. The patient has Alzheimer's dementia and is at assisted living level of care. She will likely require acute rehabilitation at the time of discharge. 9. The patient has a history of coronary artery disease. We will check a repeat EKG today based on her use of atypical antipsychotics in the last 24 hours.
[2017-02-05 16:00] VITALS: BP 146/69
[2017-02-05 20:00] VITALS: BP 131/72
[2017-02-05] MEDS: ATORVASTATIN 20 MG TAB PO SCH (20:40)
[2017-02-05] MEDS: DONEPEZIL 5 MG TAB PO SCH (20:40)
[2017-02-05] MEDS: DULoxetine 30 MG CAP (CYMBALTA) PO SCH (20:40)
--- NOTE | 2017-02-05 21:36 | ECGEPIP ---
Stationary ECG Study [place] Test Date: 2017-02-05 Pat Name: FELICE PARKINSON Department: Room: T3690-33 Gender: F Consumer Insights Specialist: SIMEON : 1940 Requested By: JAEL Wilhelm Order Number: [id number] Reading MD: Rosalino De La Rosa Measurements Intervals [place] Rate: 89 P: 48 DE: 146 QRS: 6 QRSD: 84 T: 34 QT: 351 QTc: 429 Interpretive Statements Normal sinus rhythm Early anterior R wave progression Nonspecific T wave abnormality No significant change when compared to prior tracing of 02/01/2017 Electronically Signed On 02-05-2017 21:35:44 EST by Rosalino De La Rosa
[2017-02-05 23:59] VITALS: BP 164/78
[2017-02-06] MEDS: SLF 3 ML SYR IV SCH ×3 (03:58→21:33)
[2017-02-06 04:00] VITALS: BP 163/79
[2017-02-06 05:46] LABS: MEAN CORPUSCULAR HGB CONC 32.8 g/dl (32.0-36.5); MEAN CORPUSCULAR VOLUME 85.6 fl (80.0-96.0); PLATELET COUNT, AUTOMATED 136 10^3/uL (150-450); RED CELL DISTRIBUTION WIDTH 13.3 % (11.5-14.5); WHITE BLOOD COUNT 5.1 10^3/uL (4.0-10.0)
[2017-02-06 05:55] LABS: CALCIUM LEVEL 8.6 MG/DL (8.8-10.2); CREATININE FOR GFR 1.02 MG/DL (0.55-1.02); GLOMERULAR FILTRATION RATE 55.8 (>39); POTASSIUM SERUM 3.6 MEQ/L (3.5-5.1)
[2017-02-06 07:30] VITALS: BP 160/78
[2017-02-06] MEDS: VITAMIN D (CHOLECALCIFEROL) 400 INTERNATIONAL UNITS TAB PO SCH (08:51)
[2017-02-06] MEDS: CEFDINIR 300 MG CAP (OMNICEF) PO SCH ×2 (08:51→21:25)
[2017-02-06] MEDS: HumaLOG INSULIN (NovoLOG) PER UNIT SC SCH ×4 (08:51→21:00)
[2017-02-06] MEDS: LISINOPRIL 10 MG TAB PO SCH (08:52)
[2017-02-06] MEDS: DOCUSATE SODIUM 100 MG CAP PO SCH ×2 (08:52→21:25)
[2017-02-06] MEDS: ASPIRIN 81 MG CHEW TABLET PO SCH (08:53)
[2017-02-06] MEDS: amLODIPine 10 MG TAB PO SCH (08:53)
[2017-02-06] MEDS: risperiDONE 0.25 MG TAB PO SCH (08:53)
[2017-02-06] MEDS: CLOPIDOGREL 75 MG TAB PO SCH (08:53)
[2017-02-06] MEDS: PANTOPRAZOLE 40MG TAB (PROTONIX) PO SCH (08:53)
[2017-02-06] MEDS: NYSTATIN 100,000 UNITS/GM TOPICAL PWD 15 GM TOP SCH ×2 (08:54→21:00)
--- NOTE | 2017-02-06 13:17 | REP ---
Clinical: Trauma. Fall. Comparison: 02/01/2017 . Findings: Age-related atrophy and microvascular ischemic changes are appreciated. The ventricles and sulci are symmetric. Howell-white differentiation is maintained. There is no evidence for acute intracranial hemorrhage, mass/mass effect, pathology or infarction. No extra-axial fluid collection. Calvarium is intact. Paranasal sinuses and mastoid air cells are clear. Impression: Age related atrophy and microvascular ischemic changes. No acute intracranial hemorrhage, infarction, or mass/mass effect. Signed by Louis Mayorga MD 02/06/2017 01:08 P
[2017-02-06 15:10] VITALS: BP 154/86
[2017-02-06] MEDS: DONEPEZIL 5 MG TAB PO SCH (21:25)
[2017-02-06] MEDS: ATORVASTATIN 20 MG TAB PO SCH (21:25)
[2017-02-06] MEDS: DULoxetine 30 MG CAP (CYMBALTA) PO SCH (21:25)
[2017-02-06 22:00] VITALS: BP 136/78
[2017-02-07 05:58] LABS: MEAN CORPUSCULAR HEMOGLOBIN 28.2 pg (27.0-33.0); MEAN CORPUSCULAR HGB CONC 32.9 g/dl (32.0-36.5); MEAN CORPUSCULAR VOLUME 85.7 fl (80.0-96.0); PLATELET COUNT, AUTOMATED 153 10^3/uL (150-450); RED CELL DISTRIBUTION WIDTH 13.3 % (11.5-14.5); WHITE BLOOD COUNT 5.1 10^3/uL (4.0-10.0)
[2017-02-07 06:00] VITALS: BP 142/80
[2017-02-07] MEDS: SLF 3 ML SYR IV SCH ×3 (06:00→20:26)
[2017-02-07 06:10] LABS: ANION GAP 7 MEQ/L (8-16); BLOOD UREA NITROGEN 13 MG/DL (7-18); CALCIUM LEVEL 8.8 MG/DL (8.8-10.2); CARBON DIOXIDE LEVEL 27 MEQ/L (21-32); CHLORIDE LEVEL 110 MEQ/L (98-107); CREATININE FOR GFR 0.94 MG/DL (0.55-1.02); GLOMERULAR FILTRATION RATE > 60.0 (>39); GLUCOSE, FASTING 194 MG/DL (83-110); POTASSIUM SERUM 3.5 MEQ/L (3.5-5.1); SODIUM LEVEL 144 MEQ/L (136-145)
[2017-02-07] MEDS: VITAMIN D (CHOLECALCIFEROL) 400 INTERNATIONAL UNITS TAB PO SCH (07:50)
[2017-02-07] MEDS: HumaLOG INSULIN (NovoLOG) PER UNIT SC SCH ×4 (07:50→20:25)
[2017-02-07] MEDS: ASPIRIN 81 MG CHEW TABLET PO SCH (07:50)
[2017-02-07] MEDS: CEFDINIR 300 MG CAP (OMNICEF) PO SCH ×2 (07:50→20:24)
[2017-02-07] MEDS: amLODIPine 10 MG TAB PO SCH (07:51)
[2017-02-07] MEDS: CLOPIDOGREL 75 MG TAB PO SCH (07:51)
[2017-02-07] MEDS: LISINOPRIL 10 MG TAB PO SCH (07:51)
[2017-02-07] MEDS: DOCUSATE SODIUM 100 MG CAP PO SCH ×2 (07:51→20:24)
[2017-02-07] MEDS: PANTOPRAZOLE 40MG TAB (PROTONIX) PO SCH (07:51)
[2017-02-07] MEDS: NYSTATIN 100,000 UNITS/GM TOPICAL PWD 15 GM TOP SCH ×2 (07:52→21:00)
--- NOTE | 2017-02-07 08:47 | IPN ---
DATE: 02/06/2017 Ms. Unger is feeling well today. She is tolerating a diet today. She is aware of who the president is. She knows that she is in the hospital. She knows the year is 2016. No complaints of pain. She is enjoying a breakfast, she thinks her muffin is excellent. Temperature is 98.6, pulse 93, respiratory rate 20, blood pressure 160/78, 94% on room air. Input and output notable for a negative fluid balance of -320, two bowel movements yesterday. Is awake, appropriately interactive, pleasantly conversant. Breathing is symmetrical, distant sounding. Heart has regular rate and rhythm. No significant arrhythmia on the monitor. ABDOMEN: Soft, doughy, nontender. LABORATORY DATA: White cell count 5.1, hemoglobin 11.2, platelets of 136. BUN 18, creatinine 1.02. ASSESSMENT: This is a 76-year-old with metabolic encephalopathy, status post fall from assisted living at [facility]. PLAN: 1. The patient is status post mechanical fall. She is currently not complaining of any pain or discomfort. No significant arrhythmia on the monitor. MRI showed no evidence of stroke. 2. The patient had systemic inflammatory response syndrome (SIRS) at the time of presentation. No evidence of urinary tract infection. She has had a series of urinary tract infections. 3. The patient has diabetes and on sliding scale insulin. Has eaten breakfast. 4. The patient has resolved lactic acidosis. 5. The patient has resolved acute kidney injury. 6. The patient has hypertension. 7. The patient has hyperlipidemia. 8. The patient has Alzheimer's dementia and is at baseline assisted living level of care. She appears to be approaching that at this point, although she may still require acute rehabilitation. At this point, I am going to also stop her Risperdal, which I have viewed as a temporary drug for her metabolic encephalopathy.
[2017-02-07 14:00] VITALS: BP 178/82
--- NOTE | 2017-02-07 15:12 | IPN ---
DATE: 02/07/2017 SUBJECTIVE: Ms. Unger is feeling well today. She has no complaints of pain, chest pain, shortness of breath. Did fall out of bed last night while she was in the progressive care unit (PCU). OBJECTIVE: VITAL SIGNS: Temperature 97.3, pulse 76, respiratory rate 15, blood pressure 142/80, 94% on room air. INTAKE AND OUTPUT: Notable for positive fluid balance of 1260. Weight 79.8 kg. GENERAL: Is awake, appropriately interactive. Pleasantly conversant. LUNGS: Breathing is symmetrical, diminished. HEART: Distant sounding. LABORATORY DATA: White cell count 5.1, hemoglobin 11.6, platelets 153. BUN 13, creatinine 0.9. ASSESSMENT: An 76-year-old female status post fall from assisted living at [facility], status post repeat fall at [facility]. PLAN: 1. The patient is status post mechanical fall, not complaining of any pain or discomfort. Repeat CT scan of the head yesterday was unremarkable. MRI during the stay showed no evidence of stroke. 2. The patient had systemic inflammatory response at the time of presentation. No evidence of a urinary tract infection. She has had a series of urinary tract infections, is currently not on any antibiotics. 3. The patient had metabolic encephalopathy during her stay. She had received a dose of Haldol and some Risperdal which are no longer needed. 4. The patient has diabetes on sliding scale insulin. 5. The patient has resolved lactic acidosis. 6. The patient has resolved acute kidney injury. 7. The patient has hypertension. 8. The patient has hyperlipidemia. 9. The patient has Alzheimer's dementia, is baseline assisted living level of activity. Plan to go to subacute rehabilitation. Would plan for discharge 02/10. Did discuss on multiple disciplinary rounds today. MAMADOU
[2017-02-07 16:00] VITALS: BP 148/78
[2017-02-07] MEDS: DONEPEZIL 5 MG TAB PO SCH (20:24)
[2017-02-07] MEDS: ATORVASTATIN 20 MG TAB PO SCH (20:24)
[2017-02-07] MEDS: DULoxetine 30 MG CAP (CYMBALTA) PO SCH (20:24)
[2017-02-07 22:00] VITALS: BP 142/60
[2017-02-08 06:00] VITALS: BP_SYST 168; BP_SYST 170; BP_DIAS 72; BP_DIAS 90
[2017-02-08] MEDS: SLF 3 ML SYR IV SCH ×3 (06:00→21:09)
[2017-02-08 06:30] LABS: MEAN CORPUSCULAR HEMOGLOBIN 28.3 pg (27.0-33.0); MEAN CORPUSCULAR HGB CONC 32.8 g/dl (32.0-36.5); MEAN CORPUSCULAR VOLUME 86.4 fl (80.0-96.0); PLATELET COUNT, AUTOMATED 189 10^3/uL (150-450); RED CELL DISTRIBUTION WIDTH 13.4 % (11.5-14.5); WHITE BLOOD COUNT 6.7 10^3/uL (4.0-10.0)
[2017-02-08 06:41] LABS: CALCIUM LEVEL 9.1 MG/DL (8.8-10.2); CREATININE FOR GFR 1.05 MG/DL (0.55-1.02); POTASSIUM SERUM 3.9 MEQ/L (3.5-5.1)
--- NOTE | 2017-02-08 08:50 | IPNPDOC ---
Text Note Date of Service The patient was seen on 02/08/17. NOTE SUBJECTIVE: Patient seen and examined at bedside. Ms. Unger is feeling well today. She has no complaints of pain, chest pain, shortness of breath. OBJECTIVE: GENERAL: NAD, lying comfortably in bed, elderly HEENT: NC/AT LUNGS: Breathing is symmetrical, diminished. HEART: Distant sounding. Abd: soft, NT, +BS Ext: no edema Psych: oriented to person, place and time with prompting ASSESSMENT: 76-year-old female status post fall from assisted living at [facility], status post repeat fall at [facility]. PLAN: 1. The patient is status post mechanical fall, not complaining of any pain or discomfort. Repeat CT scan of the head was unremarkable. MRI during the stay showed no evidence of stroke. 2. The patient had systemic inflammatory response at the time of presentation. She has been receiving Cefdinir. 3. The patient had metabolic encephalopathy during her stay. She had received a dose of Haldol and some Risperdal which are no longer needed. 4. The patient has diabetes on sliding scale insulin. 5. The patient has resolved lactic acidosis. 6. The patient has resolved acute kidney injury. 7. The patient has hypertension. 8. The patient has hyperlipidemia. 9. The patient has Alzheimer's dementia, is baseline assisted living level of activity. 10. Thrombocytopenia - resolved 11. Elevated creatinine - will continue to monitor 12. DVT prophylaxis - mechanical Dispo: Plan to go to subacute rehabilitation. Would plan for discharge 02/10. VS,Fishbone, I+O VS, Fishbone, I+O Laboratory Tests 02/08/17 06:03 Red Blood Count 4.27, Mean Corpuscular Volume 86.4, Mean Corpuscular Hemoglobin 28.3, Mean Corpuscular Hemoglobin Concent 32.8, Red Cell Distribution Width 13.4 , Calcium Level 9.1 Vital Signs Date Time Temp Pulse Resp B/P (MAP) Pulse Ox O2 Delivery O2 Flow Rate FiO2 02/08/17 06:00 98.5 91 16 168/72 (104) 94 Room Air I&O- Last 24 Hours up to 6 AM 02/09/17 06:00 Intake Total 0 ml Output Total 0 ml Balance 0 ml TA FUNES MD Feb 08, 2017 08:50
[2017-02-08] MEDS: LISINOPRIL 10 MG TAB PO SCH (09:33)
[2017-02-08] MEDS: CEFDINIR 300 MG CAP (OMNICEF) PO SCH ×2 (09:33→21:08)
[2017-02-08] MEDS: ASPIRIN 81 MG CHEW TABLET PO SCH (09:33)
[2017-02-08] MEDS: VITAMIN D (CHOLECALCIFEROL) 400 INTERNATIONAL UNITS TAB PO SCH (09:33)
[2017-02-08] MEDS: HumaLOG INSULIN (NovoLOG) PER UNIT SC SCH ×4 (09:33→21:06)
[2017-02-08] MEDS: DOCUSATE SODIUM 100 MG CAP PO SCH ×2 (09:34→21:08)
[2017-02-08] MEDS: CLOPIDOGREL 75 MG TAB PO SCH (09:34)
[2017-02-08] MEDS: amLODIPine 10 MG TAB PO SCH (09:34)
[2017-02-08] MEDS: PANTOPRAZOLE 40MG TAB (PROTONIX) PO SCH (09:34)
[2017-02-08 11:00] VITALS: BP 160/76
[2017-02-08] MEDS: NYSTATIN 100,000 UNITS/GM TOPICAL PWD 15 GM TOP SCH ×2 (12:49→21:09)
[2017-02-08 14:00] VITALS: BP 155/72
[2017-02-08] MEDS: ATORVASTATIN 20 MG TAB PO SCH (21:08)
[2017-02-08] MEDS: DULoxetine 30 MG CAP (CYMBALTA) PO SCH (21:08)
[2017-02-08] MEDS: DONEPEZIL 5 MG TAB PO SCH (21:08)
[2017-02-08 22:00] VITALS: BP 154/88
[2017-02-09] MEDS: SLF 3 ML SYR IV SCH ×3 (05:50→21:22)
[2017-02-09 06:00] VITALS: BP 168/88
--- NOTE | 2017-02-09 08:27 | IPNPDOC ---
Text Note Date of Service The patient was seen on 02/09/17. NOTE SUBJECTIVE: Patient seen and examined at bedside. No acute overnight events reported. Patient has no new medical complaints. OBJECTIVE: GENERAL: NAD, lying comfortably in bed, elderly HEENT: NC/AT LUNGS: Breathing is symmetrical, diminished, CTA B/L. HEART: Distant sounding. Abd: soft, NT, +BS Ext: no edema Psych: oriented to person and place ASSESSMENT: 76-year-old female status post fall from assisted living at [facility], status post repeat fall at [facility]. PLAN: 1. The patient is status post mechanical fall, not complaining of any pain or discomfort. Repeat CT scan of the head was unremarkable. MRI during the stay showed no evidence of stroke. 2. The patient had systemic inflammatory response at the time of presentation. Completing a course of Cefdinir - 7 days. 3. The patient had metabolic encephalopathy during her stay. She had received a dose of Haldol and some Risperdal which are no longer needed. 4. The patient has diabetes on sliding scale insulin. 5. The patient has resolved lactic acidosis. 6. The patient has resolved acute kidney injury. 7. The patient has hypertension, continue lisinopril, norvasc. 8. The patient has hyperlipidemia. 9. The patient has Alzheimer's dementia, is baseline assisted living level of activity. 10. Thrombocytopenia - resolved 11. Elevated creatinine - will continue to monitor 12. DVT prophylaxis - mechanical Dispo: Plan to go to subacute rehabilitation. Would plan for discharge 02/10. VS,Fishbone, I+O VS, Fishbone, I+O Vital Signs Date Time Temp Pulse Resp B/P (MAP) Pulse Ox O2 Delivery O2 Flow Rate FiO2 02/09/17 06:00 98.9 81 16 168/88 (114) 92 Room Air I&O- Last 24 Hours up to 6 AM 02/10/17 06:00 Intake Total 0 ml Output Total 0 ml Balance 0 ml TA FUNES MD Feb 09, 2017 08:27
[2017-02-09] MEDS: amLODIPine 10 MG TAB PO SCH (09:39)
[2017-02-09] MEDS: LISINOPRIL 10 MG TAB PO SCH (09:39)
[2017-02-09] MEDS: HumaLOG INSULIN (NovoLOG) PER UNIT SC SCH ×4 (09:39→21:00)
[2017-02-09] MEDS: PANTOPRAZOLE 40MG TAB (PROTONIX) PO SCH (09:39)
[2017-02-09] MEDS: NYSTATIN 100,000 UNITS/GM TOPICAL PWD 15 GM TOP SCH ×2 (09:40→21:22)
[2017-02-09] MEDS: ASPIRIN 81 MG CHEW TABLET PO SCH (09:40)
[2017-02-09] MEDS: VITAMIN D (CHOLECALCIFEROL) 400 INTERNATIONAL UNITS TAB PO SCH (09:40)
[2017-02-09] MEDS: DOCUSATE SODIUM 100 MG CAP PO SCH ×2 (09:40→21:23)
[2017-02-09] MEDS: CEFDINIR 300 MG CAP (OMNICEF) PO SCH ×2 (09:40→21:23)
[2017-02-09] MEDS: CLOPIDOGREL 75 MG TAB PO SCH (09:40)
[2017-02-09 14:00] VITALS: BP 158/76
[2017-02-09] MEDS: ATORVASTATIN 20 MG TAB PO SCH (21:23)
[2017-02-09] MEDS: DULoxetine 30 MG CAP (CYMBALTA) PO SCH (21:23)
[2017-02-09] MEDS: DONEPEZIL 5 MG TAB PO SCH (21:23)
[2017-02-09 22:00] VITALS: BP 155/79
[2017-02-10] MEDS: SLF 3 ML SYR IV SCH ×3 (05:24→21:23)
[2017-02-10 06:00] VITALS: BP 150/82
[2017-02-10] MEDS: VITAMIN D (CHOLECALCIFEROL) 400 INTERNATIONAL UNITS TAB PO SCH (08:16)
[2017-02-10] MEDS: PANTOPRAZOLE 40MG TAB (PROTONIX) PO SCH (08:17)
[2017-02-10] MEDS: amLODIPine 10 MG TAB PO SCH (08:17)
[2017-02-10] MEDS: LISINOPRIL 10 MG TAB PO SCH (08:17)
[2017-02-10] MEDS: DOCUSATE SODIUM 100 MG CAP PO SCH ×2 (08:17→21:22)
[2017-02-10] MEDS: CEFDINIR 300 MG CAP (OMNICEF) PO SCH ×2 (08:17→21:22)
[2017-02-10] MEDS: ASPIRIN 81 MG CHEW TABLET PO SCH (08:17)
[2017-02-10] MEDS: CLOPIDOGREL 75 MG TAB PO SCH (08:17)
[2017-02-10] MEDS: HumaLOG INSULIN (NovoLOG) PER UNIT SC SCH ×4 (08:18→21:00)
[2017-02-10] MEDS: NYSTATIN 100,000 UNITS/GM TOPICAL PWD 15 GM TOP SCH ×2 (08:21→21:23)
[2017-02-10 10:27] LABS: BASO % 0.4 % (0.0-1.0); EOS # 0.2 10^3/uL (0.0-0.50); EOS % 3.1 % (0.0-3.0); IMMATURE GRANULOCYTE % 1.7 % (0-0); LYMPH # 1.3 10^3/uL (1.5-4.5); LYMPH % 16.7 % (24.0-44.0); MEAN CORPUSCULAR HEMOGLOBIN 28.8 pg (27.0-33.0); MEAN CORPUSCULAR HGB CONC 32.7 g/dl (32.0-36.5); MONO # 0.7 10^3/uL (0.0-0.8); MONO % 9.3 % (0.0-5.0); NEUTROPHILS # 5.3 10^3/uL (1.8-7.7); NEUTROPHILS % 68.8 % (36.0-66.0); PLATELET COUNT, AUTOMATED 240 10^3/uL (150-450); RED CELL DISTRIBUTION WIDTH 13.5 % (11.5-14.5); WHITE BLOOD COUNT 7.7 10^3/uL (4.0-10.0)
[2017-02-10 10:52] LABS: CALCIUM LEVEL 8.8 MG/DL (8.8-10.2); CREATININE FOR GFR 1.37 MG/DL (0.55-1.02); GLOMERULAR FILTRATION RATE 39.7 (>39); POTASSIUM SERUM 4.3 MEQ/L (3.5-5.1)
[2017-02-10 14:00] VITALS: BP 171/80
[2017-02-10 14:30] VITALS: BP 126/70
[2017-02-10] MEDS: DONEPEZIL 5 MG TAB PO SCH (21:22)
[2017-02-10] MEDS: ATORVASTATIN 20 MG TAB PO SCH (21:22)
[2017-02-10] MEDS: DULoxetine 30 MG CAP (CYMBALTA) PO SCH (21:22)
[2017-02-10 22:00] VITALS: BP 150/84
[2017-02-11] MEDS: SLF 3 ML SYR IV SCH (05:21)
[2017-02-11 06:00] VITALS: BP 150/74
[2017-02-11 08:20] LABS: BASO % 0.6 % (0.0-1.0); EOS # 0.2 10^3/uL (0.0-0.50); EOS % 3.3 % (0.0-3.0); IMMATURE GRANULOCYTE % 1.4 % (0-0); LYMPH # 1.6 10^3/uL (1.5-4.5); LYMPH % 22.6 % (24.0-44.0); MEAN CORPUSCULAR HEMOGLOBIN 28.8 pg (27.0-33.0); MEAN CORPUSCULAR HGB CONC 32.9 g/dl (32.0-36.5); MEAN CORPUSCULAR VOLUME 87.6 fl (80.0-96.0); MONO # 0.7 10^3/uL (0.0-0.8); MONO % 10.4 % (0.0-5.0); NEUTROPHILS # 4.3 10^3/uL (1.8-7.7); NEUTROPHILS % 61.7 % (36.0-66.0); PLATELET COUNT, AUTOMATED 238 10^3/uL (150-450); RED CELL DISTRIBUTION WIDTH 13.5 % (11.5-14.5); WHITE BLOOD COUNT 6.9 10^3/uL (4.0-10.0)
[2017-02-11 08:54] LABS: ALBUMIN 2.8 GM/DL (3.2-5.2); ALBUMIN/GLOBULIN RATIO 0.85 (1.00-1.93); BILIRUBIN,TOTAL 0.3 MG/DL (0.2-1.0); CALCIUM LEVEL 8.8 MG/DL (8.8-10.2); CREATININE FOR GFR 1.15 MG/DL (0.55-1.02); GLOMERULAR FILTRATION RATE 48.6 (>39); POTASSIUM SERUM 4.2 MEQ/L (3.5-5.1); TOTAL PROTEIN 6.1 GM/DL (6.4-8.2)
[2017-02-11] MEDS ORDERED: METOPROLOL TART 25 MG TABLET PO SCH (09:00)
[2017-02-11] MEDS: HumaLOG INSULIN (NovoLOG) PER UNIT SC SCH (09:08)
[2017-02-11 09:09] VITALS: BP 182/76
[2017-02-11] MEDS: CEFDINIR 300 MG CAP (OMNICEF) PO SCH (09:35)
[2017-02-11] MEDS: amLODIPine 10 MG TAB PO SCH (09:35)
[2017-02-11] MEDS: VITAMIN D (CHOLECALCIFEROL) 400 INTERNATIONAL UNITS TAB PO SCH (09:35)
[2017-02-11] MEDS: ASPIRIN 81 MG CHEW TABLET PO SCH (09:36)
[2017-02-11] MEDS: PANTOPRAZOLE 40MG TAB (PROTONIX) PO SCH (09:36)
[2017-02-11] MEDS: DOCUSATE SODIUM 100 MG CAP PO SCH (09:36)
[2017-02-11] MEDS: CLOPIDOGREL 75 MG TAB PO SCH (09:36)
[2017-02-11] MEDS: NYSTATIN 100,000 UNITS/GM TOPICAL PWD 15 GM TOP SCH (09:37)
--- NOTE | 2017-02-11 09:49 | IPNPDOC ---
Text Note Date of Service The patient was seen on 02/10/17. NOTE SUBJECTIVE: Patient seen and examined at bedside. No acute overnight events reported. Patient has no new medical complaints. OBJECTIVE: GENERAL: NAD, lying comfortably in bed, elderly HEENT: NC/AT LUNGS: Breathing is symmetrical, diminished, CTA B/L. HEART: Distant sounding. Abd: soft, NT, +BS Ext: no edema Psych: oriented to person and place ASSESSMENT: 76-year-old female status post fall from assisted living at [facility], status post repeat fall at [facility]. PLAN: 1. SORAYA - will check UA/UC&S, d/c ACEI, follow BMP 2. The patient is status post mechanical fall, not complaining of any pain or discomfort. Repeat CT scan of the head was unremarkable. MRI during the stay showed no evidence of stroke. 3. The patient had systemic inflammatory response at the time of presentation. Completing a 7 day course of Cefdinir. 4. The patient had metabolic encephalopathy during her stay. She had received a dose of Haldol and some Risperdal which are no longer needed. 5. The patient has diabetes on sliding scale insulin. 6. The patient has resolved lactic acidosis. 7. The patient has resolved acute kidney injury. 8. The patient has hypertension, continue lisinopril, norvasc. 9. The patient has hyperlipidemia. 9. The patient has Alzheimer's dementia, is baseline assisted living level of activity. 10. Thrombocytopenia - resolved 11. Elevated creatinine - will continue to monitor 12. DVT prophylaxis - mechanical Dispo: Plan to go to subacute rehabilitation. Would plan for discharge 02/10. VS,Sam, I+O VS, Sam, I+O Laboratory Tests 02/10/17 10:16 Red Blood Count 4.24, Mean Corpuscular Volume 88.0, Mean Corpuscular Hemoglobin 28.8, Mean Corpuscular Hemoglobin Concent 32.7, Red Cell Distribution Width 13.5 , Neutrophils (%) (Auto) 68.8 H, Lymphocytes (%) (Auto) 16.7 L, Monocytes (%) ( Auto) 9.3 H, Eosinophils (%) (Auto) 3.1 H, Basophils (%) (Auto) 0.4, Neutrophils # (Auto) 5.3, Lymphocytes # (Auto) 1.3 L, Monocytes # (Auto) 0.7, Eosinophils # (Auto) 0.2, Basophils # (Auto) 0.0, Calcium Level 8.8 02/11/17 08:10 Red Blood Count 4.34, Mean Corpuscular Volume 87.6, Mean Corpuscular Hemoglobin 28.8, Mean Corpuscular Hemoglobin Concent 32.9, Red Cell Distribution Width 13.5 , Neutrophils (%) (Auto) 61.7, Lymphocytes (%) (Auto) 22.6 L, Monocytes (%) ( Auto) 10.4 H, Eosinophils (%) (Auto) 3.3 H, Basophils (%) (Auto) 0.6, Neutrophils # (Auto) 4.3, Lymphocytes # (Auto) 1.6, Monocytes # (Auto) 0.7, Eosinophils # (Auto) 0.2, Basophils # (Auto) 0.0, Calcium Level 8.8, Aspartate Amino Transf (AST/SGOT) 18, Alanine Aminotransferase (ALT/SGPT) 31, Alkaline Phosphatase 136 H, Total Bilirubin 0.3, Total Protein 6.1 L, Albumin 2.8 L Vital Signs Date Time Temp Pulse Resp B/P (MAP) Pulse Ox O2 Delivery O2 Flow Rate FiO2 02/11/17 09:09 97.8 81 18 182/76 (111 94 Room Air TA FUNES MD Feb 11, 2017 09:49
--- NOTE | 2017-02-11 09:56 | IPNPDOC ---
Text Note Date of Service The patient was seen on 02/11/17. NOTE SUBJECTIVE: Patient seen and examined at bedside. No acute overnight events reported. Patient has no new medical complaints. OBJECTIVE: GENERAL: NAD, lying comfortably in bed, elderly HEENT: NC/AT LUNGS: Breathing is symmetrical, diminished, CTA B/L. HEART: Distant sounding. Abd: soft, NT, +BS Ext: no edema Psych: oriented to person and place with prompting ASSESSMENT: 76-year-old female status post fall from assisted living at [facility], status post repeat fall at [facility]. PLAN: 1. SORAYA - improving; UA not suggestive of UTI, d/c ACEI, follow BMP 2. The patient is status post mechanical fall, not complaining of any pain or discomfort. Repeat CT scan of the head was unremarkable. MRI during the stay showed no evidence of stroke. 3. The patient had systemic inflammatory response at the time of presentation. Completing a course of cefdinir - 7 days. 4. The patient had metabolic encephalopathy during her stay. She had received a dose of Haldol and some Risperdal which are no longer needed. 5. The patient has diabetes on sliding scale insulin. 6. The patient has resolved lactic acidosis. 7. The patient has hypertension, continue norvasc, lisinopril discontinued secondary to SORAYA, started BB 8. The patient has hyperlipidemia. 9. The patient has Alzheimer's dementia, is baseline assisted living level of activity. 10. Thrombocytopenia - resolved 11. DVT prophylaxis - mechanical Dispo: Monitor blood pressures, follow creatinine plan for discharge in 24 hours VS,[place], I+O VS, Fishbone, I+O Laboratory Tests 02/10/17 10:16 Red Blood Count 4.24, Mean Corpuscular Volume 88.0, Mean Corpuscular Hemoglobin 28.8, Mean Corpuscular Hemoglobin Concent 32.7, Red Cell Distribution Width 13.5 , Neutrophils (%) (Auto) 68.8 H, Lymphocytes (%) (Auto) 16.7 L, Monocytes (%) ( Auto) 9.3 H, Eosinophils (%) (Auto) 3.1 H, Basophils (%) (Auto) 0.4, Neutrophils # (Auto) 5.3, Lymphocytes # (Auto) 1.3 L, Monocytes # (Auto) 0.7, Eosinophils # (Auto) 0.2, Basophils # (Auto) 0.0, Calcium Level 8.8 02/11/17 08:10 Red Blood Count 4.34, Mean Corpuscular Volume 87.6, Mean Corpuscular Hemoglobin 28.8, Mean Corpuscular Hemoglobin Concent 32.9, Red Cell Distribution Width 13.5 , Neutrophils (%) (Auto) 61.7, Lymphocytes (%) (Auto) 22.6 L, Monocytes (%) ( Auto) 10.4 H, Eosinophils (%) (Auto) 3.3 H, Basophils (%) (Auto) 0.6, Neutrophils # (Auto) 4.3, Lymphocytes # (Auto) 1.6, Monocytes # (Auto) 0.7, Eosinophils # (Auto) 0.2, Basophils # (Auto) 0.0, Calcium Level 8.8, Aspartate Amino Transf (AST/SGOT) 18, Alanine Aminotransferase (ALT/SGPT) 31, Alkaline Phosphatase 136 H, Total Bilirubin 0.3, Total Protein 6.1 L, Albumin 2.8 L Vital Signs Date Time Temp Pulse Resp B/P (MAP) Pulse Ox O2 Delivery O2 Flow Rate FiO2 02/11/17 09:09 97.8 81 18 182/76 (111) 94 Room Air TA FUNES MD Feb 11, 2017 09:56
[2017-02-11 10:05] VITALS: BP 168/82
[2017-02-11] MEDS ORDERED: METO1TAB87 PO (10:09)
--- NOTE | 2017-02-11 10:48 | DS.PDOC ---
Discharge Summary General Date of Admission Feb 01, 2017 at 23:41 Date of Discharge 02/11/17 Discharge Summary PROCEDURES PERFORMED DURING STAY: [None]. DISCHARGE DIAGNOSES: 1. Fall 1. SORAYA. 2. SIRS 3. metabolic encephalopathy 4. DM 5. HTN 6. dyslipidemia 7. Alzheimer's dementia 8. Thrombocytopenia COMPLICATIONS/CHIEF COMPLAINT: Severe Sepsis. HISTORY OF PRESENT ILLNESS:The patient is a 76-year-old female admitted with a reason for visit of Severe Sepsis. Patient is a poor historian and resides at [facility]. PMH noticeable for Alzheimer's dementia, diabetes, frequent UTIs, CVA in 11/30 on aspirin and Plavix, HLD, HTN, CKD. Brought in by EMS after a non-injurious fall while walking with cane. Fingerstick revealed a blood sugar 538, and patient is reported to have had a temperature 100.6. Patient reportedly did not lose consciousness or hit her head. Per patient, she had no presyncopal symptoms including dizziness, lightheadedness, blurred vision. Patient denies loss of bowel and bladder function. Denies tongue biting, shaking/tremors, or skin cuts and bleeding. Patient denies all ROS except for pain in both legs from the fall. In the ED, patient was noted to have elevated white count 13.2, lactic acid 3.4 , alkaline phosphatase 124. Imaging of the head, neck, spine, abdomen and pelvis , hips, and chest were negative for acute concerns. Patient was given 1 dose of Zosyn & fluid bolus. HOSPITAL COURSE: Patient admitted for further evaluation and treatment. Patient met SIRS criteria with no source of infection. She was started on broad spectrum antibiotics, tapered to Omnicef for 7 days. She was in SORAYA on admission , which resolved, but then again recurred, for which her ACEI was discontinued, which did result in improvement in her renal function. Her blood pressure was slightly elevated, and she was started on a beta gonzales, with recommendation for further outpatient follow up. DISCHARGE MEDICATIONS: Please see below. ALLERGIES: Please see below. PHYSICAL EXAMINATION ON DISCHARGE: VITAL SIGNS: Please see below. GENERAL: NAD, lying comfortably in bed eating breakfast HEENT: NC/AT, EOMI, PERRL CARDIOVASCULAR EXAMINATION: +S1S2 RESPIRATORY EXAMINATION: CTA B/L ABDOMINAL EXAMINATION: soft, NT, +BS EXTREMITIES: no edema PSYCHIATRIC EXAMINATION: AAOx3 with prompting LABORATORY DATA: Please see below. ACTIVITY: [As tolerated]. DIET: 2 gram sodium, carb consistent DISCHARGE INSTRUCTIONS: 1. Follow up PCP in 1-5 days. 2. Follow up blood pressures and renal function. Re-evaluate regarding utility of ACEI. DISCHARGE CONDITION: [Stable]. TIME SPENT ON DISCHARGE: Greater than 30 minutes. Vital Signs/I&Os Vital Signs Date Time Temp Pulse Resp B/P (MAP) Pulse Ox O2 Delivery O2 Flow Rate FiO2 02/11/17 10:05 168/82 (110) 02/11/17 09:09 97.8 81 18 94 Room Air Laboratory Data Labs 24H Laboratory Tests 2 02/10/17 11:43: Bedside Glucose (Misc Panel) 310H 02/10/17 16:46: Bedside Glucose (Misc Panel) 229H 02/10/17 19:00: Urine Appearance CLEAR, Urine Color STRAW, Urine pH 5.0, Urine Specific [place] 1.008, Urine Protein 1+H, Urine Glucose (UA) 1+H, Urine Ketones NEGATIVE, Urine Urobilinogen 0.2, Urine Bilirubin NEGATIVE, Urine Leukocyte Esterase NEGATIVE, Urine Blood NEGATIVE, Urine Nitrite NEGATIVE, Urine WBC (Auto) 1, Urine RBC ( Auto) 4H, Urine Hyaline Casts (Auto) 0, Urine Bacteria (Auto) 1+H, Urine Squamous Epithelial Cells 0, Urine Mucus (Auto) SMALL, Urine Sperm (Auto) 02/11/17 05:38: Bedside Glucose (Misc Panel) 189H 02/11/17 08:10: Immature Granulocyte % (Auto) 1.4H, White Blood Count 6.9, Red Blood Count 4.34 , Hemoglobin 12.5, Hematocrit 38.0, Mean Corpuscular Volume 87.6, Mean Corpuscular Hemoglobin 28.8, Mean Corpuscular Hemoglobin Concent 32.9, Red Cell Distribution Width 13.5, Platelet Count 238, Neutrophils (%) (Auto) 61.7, Lymphocytes (%) (Auto) 22.6L, Monocytes (%) (Auto) 10.4H, Eosinophils (%) (Auto ) 3.3H, Basophils (%) (Auto) 0.6, Neutrophils # (Auto) 4.3, Lymphocytes # (Auto ) 1.6, Monocytes # (Auto) 0.7, Eosinophils # (Auto) 0.2, Basophils # (Auto) 0.0 , Immature Granulocyte # (Auto) 0.1H, Nucleated Red Blood Cells % (auto) 0.0, Anion Gap 8, Glomerular Filtration Rate 48.6, Blood Urea Nitrogen 22H, Creatinine 1.15H, Sodium Level 140, Potassium Level 4.2, Chloride Level 105, Carbon Dioxide Level 27, Calcium Level 8.8, Aspartate Amino Transf (AST/SGOT) 18 , Alanine Aminotransferase (ALT/SGPT) 31, Alkaline Phosphatase 136H, Total Bilirubin 0.3, Total Protein 6.1L, Albumin 2.8L, Albumin/Globulin Ratio 0.85L CBC/BMP Laboratory Tests 02/11/17 08:10 Red Blood Count 4.34, Mean Corpuscular Volume 87.6, Mean Corpuscular Hemoglobin 28.8, Mean Corpuscular Hemoglobin Concent 32.9, Red Cell Distribution Width 13.5 , Neutrophils (%) (Auto) 61.7, Lymphocytes (%) (Auto) 22.6 L, Monocytes (%) ( Auto) 10.4 H, Eosinophils (%) (Auto) 3.3 H, Basophils (%) (Auto) 0.6, Neutrophils # (Auto) 4.3, Lymphocytes # (Auto) 1.6, Monocytes # (Auto) 0.7, Eosinophils # (Auto) 0.2, Basophils # (Auto) 0.0, Calcium Level 8.8, Aspartate Amino Transf (AST/SGOT) 18, Alanine Aminotransferase (ALT/SGPT) 31, Alkaline Phosphatase 136 H, Total Bilirubin 0.3, Total Protein 6.1 L, Albumin 2.8 L FSBS Laboratory Tests Test 02/10/17 11:43 02/10/17 16:46 02/11/17 05:38 Range/Units Bedside Glucose (Misc Panel) 310 229 189 83-110 MG/DL Microbiology Microbiology 02/01/17 Blood Culture - Final, Complete NO GROWTH AFTER 5 DAYS 02/01/17 Blood Culture - Final, Complete NO GROWTH AFTER 5 DAYS 02/01/17 Influenza Virus Type A Antigen - Final, Complete 02/01/17 Influenza Virus Type B Antigen - Final, Complete 02/10/17 Urine Culture, Received Pending 02/06/17 Urine Culture - Final, Complete 02/01/17 Urine Culture - Final, Complete Discharge Medications Scheduled (Preservision Areds 2) 1 Cap Cap, 1 CAP PO BID, (Reported) (Aspirin) 81 Mg Chw, 81 MG PO DAILY, (Reported) Atorvastatin Calcium (Atorvastatin Calcium) 40 Mg Tab, 40 MG PO QHS, (Reported) Cholecalciferol (Vitamin D3) 400 Unit Cap, 400 UNIT PO DAILY, (Reported) Clopidogrel Bisulfate (Plavix) 75 Mg Tab, 75 MG PO DAILY, (Reported) Docusate Sodium (Colace) 100 Mg Cap, 100 MG PO BID, (Reported) Donepezil Hydrochloride (Aricept) 5 Mg Tab, 5 MG PO QHS, (Reported) Duloxetine Hcl (Cymbalta) 30 Mg Cap, 30 MG PO QHS, (Reported) Glipizide (Glipizide Xl) 5 Mg Tab, 5 MG PO DAILY, (Reported) Melatonin (Melatonin) 5 Mg Tab, 5 MG PO QHS, (Reported) Metoprolol Tartrate (Metoprolol Tartrate) 25 Mg Tab, 25 MG PO BID Mirabegron Base (Myrbetriq) 25 Mg Tab, 25 MG PO DAILY, (Reported) Nystatin (Nystatin Powder) 100,000 Unit/Gm Pow, 1 DOSE TOP BID, (Reported) Ranitidine Hcl (Ranitidine Maximum Streng) 150 Mg Tab, 1 TAB PO QHS, (Reported) Sitagliptin (Januvia) 50 Mg Tab, 50 MG PO DAILY, (Reported) Tocopheryl Acetate, Dl-Alpha (Vitamin E) 400 Unit Chw, 400 UNIT PO DAILY, ( Reported) Scheduled PRN Acetaminophen (Tylenol) 325 Mg Tab, 650 MG PO Q4H PRN for PAIN OR FEVER, ( Reported) Calcium Carbonate (Tums) 500 Mg Chw, 1,000 MG PO Q4H PRN for HEARTBURN, ( Reported) Milk Of Magnesia (Milk of Magnesia) 1,200 Mg/15 Ml Brittani, 30 ML PO DAILY PRN for CONSTIPATION, (Reported) Tramadol HCl (Tramadol HCl) 50 Mg Tab, 50 MG PO Q6H PRN for PAIN, (Reported) Allergies Coded Allergies: No Known Allergies (Verified , 07/24/11) TA FUNES MD Feb 11, 2017 10:48
[2017-02-11 11:30] VITALS: BP 150/88
== END 2017-02-11 11:34 | DRG 871 ==
LOC: EDBD 18:03 → M ED 21:54 → M ED INP 23:41 → M PCU 02-02 02:08 → M MSPAV 02-06 15:04
PROVIDERS: ADMIT Internal Medicine; ATTEND Internal Medicine
DX: A41.9 Sepsis, unspecified organism (principal); G93.41 Metabolic encephalopathy; E87.2 Acidosis; N17.9 Acute kidney failure, unspecified; E11.9 Type 2 diabetes mellitus without complications; I12.9 Hypertensive chronic kidney disease with stage 1 through stage 4 chronic kidney disease, or unspecified chronic kidney disease; N18.9 Chronic kidney disease, unspecified; R65.10 Systemic inflammatory response syndrome (SIRS) of non-infectious origin without acute organ dysfunction; E78.5 Hyperlipidemia, unspecified; D69.6 Thrombocytopenia, unspecified; G30.9 Alzheimer's disease, unspecified; F02.80 Dementia in other diseases classified elsewhere, unspecified severity, without behavioral disturbance, psychotic disturbance, mood disturbance, and anxiety; Z86.73 Personal history of transient ischemic attack (TIA), and cerebral infarction without residual deficits; Z79.82 Long term (current) use of aspirin; Z79.899 Other long term (current) drug therapy; K21.9 Gastro-esophageal reflux disease without esophagitis; F32.9 Major depressive disorder, single episode, unspecified; R29.6 Repeated falls; I25.10 Atherosclerotic heart disease of native coronary artery without angina pectoris

== ENCOUNTER 2017-02-17 12:56 | Inpatient (IN) | payer MEDICARE, MEDICAID ==
[~2017-02-17] VITALS: Ht 152.4 cm; Wt 77.9 kg
[~2017-02-17 12:56] MED LIST changes: +ASPI81CH PO; +LISI10TA4 PO; +METO1TAB87 PO; +MILKSUS PO
[2017-02-17] MEDS ORDERED: LISI-538 PO (13:21)
[2017-02-17] MEDS ORDERED: METF500T13 PO (13:21)
[2017-02-17] MEDS ORDERED: JANU100T PO (13:21)
[2017-02-17] MEDS ORDERED: LOPR1TAB6 PO (13:21)
[2017-02-17] MEDS ORDERED: VITA100067 PO (13:28)
[2017-02-17] MEDS ORDERED: AMLO25TA PO (13:28)
[2017-02-17] MEDS ORDERED: RANI150C PO (13:28)
--- NOTE | 2017-02-17 13:53 | REP ---
CT Head without contrast HISTORY: Trauma COMPARISON: 02/06/2017 Areas of decreased attenuation are present in the periventricular white matter. This represents small-vessel ischemic disease. There is no intraparenchymal hemorrhage, acute infarct, mass or midline shift. The ventricular system and cortical sulci are dilated consistent with mild volume loss. There is no extra cerebral collection. There is no fracture. The visualized sinuses are clear. IMPRESSION: 1. Small vessel ischemic disease. 2. Mild volume loss. Signed by Juanito Sampson MD 02/17/2017 01:45 P
[2017-02-17 14:02] LABS: BASO % 0.4 % (0.0-1.0); EOS # 0.2 10^3/uL (0.0-0.50); EOS % 1.6 % (0.0-3.0); IMMATURE GRANULOCYTE % 0.4 % (0-0); LYMPH # 1.1 10^3/uL (1.5-4.5); LYMPH % 11.9 % (24.0-44.0); MEAN CORPUSCULAR HGB CONC 32.9 g/dl (32.0-36.5); MEAN CORPUSCULAR VOLUME 88.1 fl (80.0-96.0); MONO # 0.7 10^3/uL (0.0-0.8); MONO % 7.6 % (0.0-5.0); NEUTROPHILS # 7.4 10^3/uL (1.8-7.7); NEUTROPHILS % 78.1 % (36.0-66.0); PLATELET COUNT, AUTOMATED 301 10^3/uL (150-450); RED CELL DISTRIBUTION WIDTH 13.4 % (11.5-14.5); WHITE BLOOD COUNT 9.5 10^3/uL (4.0-10.0)
--- NOTE | 2017-02-17 14:05 | REP ---
CT CERVICAL SPINE WITHOUT CONTRAST: HISTORY: Trauma. COMPARISON: 02/01/2017. There is no acute fracture. Disc bulges are present at the C3-4 through C5-6 levels. Uncinate process and/or facet hypertrophy are present at the C4-5 and C5-6 levels. These findings produce minimal narrowing of the neural foramina. The C5-6 and C6-7 intervertebral discs are decreased in height consistent with disc degeneration. There are 2 mm of anterior subluxation of C4 on 5 and C5 on 6. IMPRESSION: 1. There is no acute fracture. 2. There is cervical spondylosis at the C3-4 through C5-6 levels. Signed by Juanito Sampson MD 02/17/2017 02:08 P
[2017-02-17 14:07] LABS: INR 1.03
--- NOTE | 2017-02-17 14:09 | REP ---
AP PORTABLE CHEST: 02/17/2017. Comparison: AP lateral chest 02/01/2017. Clinical history: CVA. Findings: The lung pickard are mildly hypoinflated. There is some facet congestion with venous hypertension. No marty edema, dense consolidation or definite effusion. Crowded markings in the bases and perihilar regions. Heart size magnified by portable technique and low level of inflation. The aorta is calcified and tortuous but without aneurysm. Airway intact. Bones show degenerative changes AC joint and shoulders without fracture or acute finding. Impression: 1. Some venous hypertension without marty edema, gross effusion, dense consolidation or parenchymal mass. 2. Mild tortuosity calcification aorta without aneurysm. Degenerative changes AC joints and spine. 3. Magnified heart size by portable technique and some left atrial enlargement suspected. Signed by Billy Jimenez MD 02/17/2017 02:01 P
[2017-02-17 14:12] LABS: PLT CLUMPS? POS FLAG; POS COUNT POS FLAG
[2017-02-17 14:13] LABS: ADD MORPHOLOGY? YES
[2017-02-17 14:14] LABS: ANISOCYTOSIS 1+
[2017-02-17 14:36] LABS: ANION GAP 7 MEQ/L (8-16); BLOOD UREA NITROGEN 25 MG/DL (7-18); CALCIUM LEVEL 9.7 MG/DL (8.8-10.2); CARBON DIOXIDE LEVEL 28 MEQ/L (21-32); CHLORIDE LEVEL 102 MEQ/L (98-107); CREATININE FOR GFR 1.34 MG/DL (0.55-1.02); GLOMERULAR FILTRATION RATE 40.7 (>39); GLUCOSE, FASTING 246 MG/DL (83-110); POTASSIUM SERUM 4.6 MEQ/L (3.5-5.1); SODIUM LEVEL 137 MEQ/L (136-145)
[2017-02-17] MEDS ORDERED: ONDANSETRON 4MG/2ML VIAL (J2405) IV PRN (16:30)
[2017-02-17] MEDS ORDERED: ACETAMINOPHEN TAB 650MG DOSE (2X325MG) PO PRN (16:30)
[2017-02-17] MEDS ORDERED: GLUCOSE 4 GM CHEW TABLET PO PRN (16:30)
[2017-02-17] MEDS ORDERED: DEXTROSE 50% 50 ML SYRINGE IV PRN (16:30)
[2017-02-17] MEDS ORDERED: GLUCAGON FOR INJ 1 MG VIAL (J1610) SC PRN (16:30)
[2017-02-17] MEDS ORDERED: VITATAB54 PO (16:39)
[2017-02-17] MEDS ORDERED: ENEMENE16 PR (16:39)
[2017-02-17] MEDS ORDERED: BISA10SU4 PR (16:39)
[2017-02-17] MEDS ORDERED: BISACODYL 10 MG SUPP PR PRN (17:00)
[2017-02-17] MEDS ORDERED: MOM 30ML SUSPENSION UDC PO PRN (17:00)
[2017-02-17] MEDS ORDERED: CALCIUM CARBONATE 500 MG CHEW U/D PO PRN (17:00)
--- NOTE | 2017-02-17 17:01 | HPEPDOC ---
General Date of Admission Feb 17, 2017 at 16:21 Attending Physician: SCARLET CARD MD Chief Complaint The patient is a 76-year-old female admitted with a reason for visit of Transient Ischemic Attack. History of Present Illness 76-year-old female with past medical history of hypertension, dyslipidemia, diabetes mellitus, CKD,CVA in 11/2015, and Alzheimer's dementia who resides at [facility] presented to the ER following a fall and reports of left-sided eric-neglect and left upper extremity weakness as per staff. Of note, the patient was recently admitted here from 02/02-02/11 and was treated for SIRS, SORAYA, and Metabolic encephalopathy. At this time, the patient returns after she was found to sustain a fall last night at [facility]. Apparently, the patient woke up at around 3 AM and states that she needed to use the bathroom. She reports that she pressed the call metz a few times and did not get a response. She subsequently tried to get out of bed and go to the bathroom on her own, however she subsequently fell out of bed. There was a report of trauma to the head. The patient subsequently had serial neurological exams done by the staff there and was noted to have left-sided eric-neglect and left upper extremity weakness. The patient was subsequently sent to the ER for further evaluation and management. In the ER, a CT scan of the head revealed no acute findings. In addition, the patient's neurological symptoms had resolved here. Neurology was contacted by the ER physician, and the patient has been recommended for an MRI/MRA of the brain. We will admit the patient to the hospital service for further monitoring. Home Medications Scheduled (Preservision Areds 2) 1 Cap Cap, 1 CAP PO BID, (Reported) Amlodipine Besylate (Norvasc) 2.5 Mg Tab, 10 MG PO DAILY, (Reported) Atorvastatin Calcium (Atorvastatin Calcium) 40 Mg Tab, 40 MG PO QHS, (Reported) Cholecalciferol (Vitamin D-400) 400 Unit Tab, 400 UNIT PO DAILY, (Reported) Clopidogrel Bisulfate (Plavix) 75 Mg Tab, 75 MG PO DAILY, (Reported) Docusate Sodium (Colace) 100 Mg Cap, 100 MG PO BID, (Reported) Duloxetine Hcl (Cymbalta) 30 Mg Cap, 30 MG PO QHS, (Reported) Lisinopril (Lisinopril) 20 Mg Tab, 20 MG PO DAILY, (Reported) Metformin Hydrochloride (Metformin HCl) 500 Mg Tab, 500 MG PO BID, (Reported) Metoprolol Tartrate (Lopressor) 50 Mg Tab, 50 MG PO BID, (Reported) Mirabegron Base (Myrbetriq) 25 Mg Tab, 25 MG PO DAILY, (Reported) Ranitidine HCl (Ranitidine HCl) 150 Mg Cap, 1 CAP PO BID, (Reported) Sitagliptin Phosphate (Januvia) 100 Mg Tab, 100 MG PO DAILY, (Reported) Scheduled PRN Acetaminophen (Tylenol) 325 Mg Tab, 650 MG PO Q4H PRN for PAIN OR FEVER, ( Reported) Bisacodyl (Bisacodyl) 10 Mg Sup, 10 MG CO DAILY PRN for CONSTIPATION, (Reported) Calcium Carbonate (Tums) 500 Mg Chw, 1,000 MG PO Q4H PRN for HEARTBURN, ( Reported) Milk Of Magnesia (Milk of Magnesia) 1,200 Mg/15 Ml Brittani, 30 ML PO DAILY PRN for CONSTIPATION, (Reported) Sodium Phosphate/Biphosphate (Enema 7-19 gm/118Ml) 1 Aneudy Aneudy, 1 ANEUDY CO DAILY PRN for CONSTIPATION, (Reported) Allergies Coded Allergies: No Known Allergies (Verified , 07/24/11) Past Medical History Medical History As noted in HPI. Family History Significant Family History: No pertinent family hx Social History * Smoker: Denies Alcohol: Denies Drugs: denies Lives in [facility] assisted living facility Review of Symptoms Other systems 10 point review of systems negative unless otherwise specified in HPI. Physical Examination General Exam: Positive: Alert, Cooperative, No Acute Distress Eye Exam: Positive: PERRLA, EOMI, Negative: Sclera icteric ENT Exam: Positive: Atraumatic, Mucous membr. moist/pink Neck Exam: Negative: JVD Chest Exam: Positive: Clear to auscultation Heart Exam: Positive: Rate Normal, Regular Rhythm, Normal S1, Normal S2 Telemetry: Positive: Sinus Abdomen Exam: Positive: Soft, Negative: Tenderness Extremity Exam: Negative: Tenderness, Swelling Neuro Exam: Positive: Normal Speech, Strength at 5/5 X4 ext, Normal Tone, Cranial Nerves 3-12 NL Vital Signs Vital Signs Date Time Temp Pulse Resp B/P (MAP) Pulse Ox O2 Delivery O2 Flow Rate FiO2 02/17/17 16:26 72 96 02/17/17 16:20 142/67 (92) 02/17/17 13:16 97.1 19 Room Air Laboratory Data Labs 24H Laboratory Tests 2 02/17/17 13:43: Immature Granulocyte % (Auto) 0.4H, White Blood Count 9.5, Red Blood Count 4.79 , Hemoglobin 13.9, Hematocrit 42.2, Mean Corpuscular Volume 88.1, Mean Corpuscular Hemoglobin 29.0, Mean Corpuscular Hemoglobin Concent 32.9, Red Cell Distribution Width 13.4, Platelet Count 301, Neutrophils (%) (Auto) 78.1H, Lymphocytes (%) (Auto) 11.9L, Monocytes (%) (Auto) 7.6H, Eosinophils (%) (Auto) 1.6, Basophils (%) (Auto) 0.4, Neutrophils # (Auto) 7.4, Lymphocytes # (Auto) 1.1L, Monocytes # (Auto) 0.7, Eosinophils # (Auto) 0.2, Basophils # (Auto) 0.0, Immature Granulocyte # (Auto) 0.0, Nucleated Red Blood Cells % (auto) 0.0, Platelet Estimate NORMAL, Anisocytosis 1+, Prothrombin Time 13.6, Prothromb Time International Ratio 1.03, Activated Partial Thromboplast Time 20.0L, Anion Gap 7L, Glomerular Filtration Rate 40.7, Blood Urea Nitrogen 25H, Creatinine 1.34H, Sodium Level 137, Potassium Level 4.6, Chloride Level 102, Carbon Dioxide Level 28, Calcium Level 9.7, Total Creatine Kinase 33, Creatine Kinase MB 1.0, Creatine Kinase MB Relative Index 3.03, Troponin I < 0.02 CBC/BMP Laboratory Tests 02/17/17 13:43 Red Blood Count 4.79, Mean Corpuscular Volume 88.1, Mean Corpuscular Hemoglobin 29.0, Mean Corpuscular Hemoglobin Concent 32.9, Red Cell Distribution Width 13.4 , Neutrophils (%) (Auto) 78.1 H, Lymphocytes (%) (Auto) 11.9 L, Monocytes (%) ( Auto) 7.6 H, Eosinophils (%) (Auto) 1.6, Basophils (%) (Auto) 0.4, Neutrophils # (Auto) 7.4, Lymphocytes # (Auto) 1.1 L, Monocytes # (Auto) 0.7, Eosinophils # (Auto) 0.2, Basophils # (Auto) 0.0, Calcium Level 9.7, Total Creatine Kinase 33 Plan / VTE VTE Prophylaxis Ordered?: Yes Plan Plan Transient Left Sided Eric-neglect and LUE Weakness 2/[address] Head with no acute findings Neurological complaints have resolved in the ER MRI/MRA of the brain ordered Ultrasound carotids, 2-D echocardiogram ordered EKG noted to be in normal sinus rhythm Continue neurological checks We will continue to monitor patient on telemetry Continue patient on Plavix, statin Physical therapy ordered for functional optimization Hypertension, stable Continue regimen as ordered Dyslipidemia Continue statin Diabetes mellitus Insulin sliding scale Chronic kidney disease Serum creatinine at baseline History of CVA in 11/2015 Residual deficits include LUE ataxia Continue Plavix, statin DVT prophylaxis Heparin subcutaneous The patient will be admitted under the service of Dr. Card, who will begin to follow the patient on 02/18/17 at 7 AM. RACHELLE WHITE MD Feb 17, 2017 17:01
--- NOTE | 2017-02-17 18:50 | REPUSA ---
MRA of the brain clinical history: CVA. Technique: [id number] MRA images of the brain were obtained without administration of contrast. 3 -D MIP images were also obtained. Findings: The vascular structures extending from the distal carotid and vertebrobasilar arterial syst ems, through the venetie of [place], demonstrate normal caliber and contour. There is no evidence of an eurysm, stenosis, or thrombosis. Impression: Unremarkable MRA examination of the brain.
--- NOTE | 2017-02-17 18:50 | REPUSA ---
MRI of the brain. Clinical history: CVA, history of a full. Comparison: 02/01/2017. Technique: Multiecho multiplanar MRI images of the brain were obtained without administration of cont rast. Diffusion weighted images with ADC mapping was also obtained. Findings: The ventricles and sulci are symmetric bilaterally. The brain parenchyma demonstrates T2 hyperintensi ty in the subcortical and periventricular white matter bilaterally, greater in the occipital lobes. T here is no midline shift, mass effect, or extra-axial fluid collection. The midline intracranial stru ctures do not demonstrate any gross abnormalities. The cervical cranial junction is intact. The orbit s are unremarkable. The visualized paranasal sinuses and mastoid air cells are clear. The osseous str uctures and superficial soft tissues are unremarkable. The vascular structures demonstrate appropriat e flow voids. Impression: 1. No evidence of acute infarct or hemorrhage. 2. Moderate chronic small vessel ischemic disease.
--- NOTE | 2017-02-17 19:31 | REP ---
REASON FOR EXAM: Stroke like symptoms. Echogenic material is seen along the internal carotid arterial ortega bilaterally. Some of this echogenic material on the right casts an acoustic shadow consistent with calcific deposition. RIGHT LEFT CCA systolic 61.0 cm/s 37.3 cm/s CCA diastolic 6.4 cm/s 6.4 cm/s ICA systolic 57.3 cm/s 40.1 cm/s ICA diastolic 6.7 cm/s 6.2 cm/s ICA/CCA ratio 0.73 0 .61 Spectral wave form analysis shows no evidence of significant spectral broadening. Antegrade flow is seen on both vertebral arteries. IMPRESSION: There is soft and calcified atherosclerotic plaque formation seen bilaterally as described above. According to the NASCET consensus criteria the degree of stenosis is less than 50%. Signed by Santiago Dykes DO 02/17/2017 08:06 P
[2017-02-17] MEDS: HumaLOG INSULIN (NovoLOG) PER UNIT SC SCH ×2 (19:46→21:00)
[2017-02-17 21:00] VITALS: BP 147/69
[2017-02-17] MEDS: DOCUSATE SODIUM 100 MG CAP PO SCH (21:44)
[2017-02-17] MEDS: DULoxetine 30 MG CAP (CYMBALTA) PO SCH (21:44)
[2017-02-17] MEDS: ATORVASTATIN 20 MG TAB PO SCH (21:45)
[2017-02-17] MEDS: METOPROLOL TART 50 MG TAB PO SCH (21:46)
[2017-02-17] MEDS: FAMOTIDINE 20 MG TAB PO SCH (21:46)
[2017-02-17] MEDS: HEPARIN SOD (PORCINE) 5000 UNITS/ML VIAL SQ SCH (21:53)
[2017-02-18] VITALS (7 sets, daily range): BP systolic 130–178; BP diastolic 60–78
[2017-02-18] MEDS ORDERED: SLF 3 ML SYR IV PRN (05:00)
[2017-02-18 05:34] LABS: MEAN CORPUSCULAR HEMOGLOBIN 28.7 pg (27.0-33.0); PLATELET COUNT, AUTOMATED 246 10^3/uL (150-450); RED CELL DISTRIBUTION WIDTH 13.4 % (11.5-14.5); WHITE BLOOD COUNT 6.5 10^3/uL (4.0-10.0)
[2017-02-18 05:50] LABS: ALBUMIN 2.8 GM/DL (3.2-5.2); ALBUMIN/GLOBULIN RATIO 0.74 (1.00-1.93); BILIRUBIN,TOTAL 0.3 MG/DL (0.2-1.0); CALCIUM LEVEL 9.1 MG/DL (8.8-10.2); CREATININE FOR GFR 1.17 MG/DL (0.55-1.02); GLOMERULAR FILTRATION RATE 47.6 (>39); MAGNESIUM LEVEL 1.7 MG/DL (1.8-2.4); POTASSIUM SERUM 4.2 MEQ/L (3.5-5.1); TOTAL PROTEIN 6.6 GM/DL (6.4-8.2)
[2017-02-18] MEDS: SLF 3 ML SYR IV SCH ×3 (06:00→21:11)
[2017-02-18] MEDS: HumaLOG INSULIN (NovoLOG) PER UNIT SC SCH ×4 (09:35→21:00)
[2017-02-18] MEDS: DOCUSATE SODIUM 100 MG CAP PO SCH ×2 (09:36→21:09)
[2017-02-18] MEDS: HEPARIN SOD (PORCINE) 5000 UNITS/ML VIAL SQ SCH ×2 (09:36→21:00)
[2017-02-18] MEDS: FAMOTIDINE 20 MG TAB PO SCH ×2 (09:36→21:10)
[2017-02-18] MEDS: CLOPIDOGREL 75 MG TAB PO SCH (09:36)
[2017-02-18] MEDS: LISINOPRIL 20 MG TAB PO SCH (09:36)
[2017-02-18] MEDS: amLODIPine 10 MG TAB PO SCH (09:37)
[2017-02-18] MEDS: METOPROLOL TART 50 MG TAB PO SCH ×2 (09:37→21:10)
--- NOTE | 2017-02-18 12:22 | ECGEPIP ---
Stationary ECG Study [facility] - ED Test Date: 2017-02-17 Pat Name: FELICE SPENCER Department: Room: - Gender: F Dispensary Attendant: vik : [id number] Requested By: RACHELLE Delgado Order Number: [id number] Reading MD: Angy Dumont Measurements Intervals [place] Rate: 68 P: 50 DC: 148 QRS: 0 QRSD: 78 T: 47 QT: 362 QTc: 385 Interpretive Statements SINUS RHYTHM WITH OCCASIONAL VENTRICULAR PREMATURE COMPLEXES DELAYED R PROGRESSION NSTTW ABNORMALITY DECREASED RATE 02/05/17 Electronically Signed On 02-18-2017 12:21:50 EST by Angy Dumont
[2017-02-18] MEDS: VITAMIN D (CHOLECALCIFEROL) 400 INTERNATIONAL UNITS TAB PO SCH (12:29)
--- NOTE | 2017-02-18 15:53 | IPNPDOC ---
Text Note Date of Service The patient was seen on 02/18/17. NOTE No acute events overnight. Patient reported no focal neurologic def. Denied CP, SOB, abd pain, n/v. Limited history 2/2 to dementia. GEN Alert, NAD, HEENT PERRLA, EOMI, MMM, NC/AT Neck supple Pul cta b/l Car RRR nl s1s2 ABD soft NT ND +BS Ext no clubbing cyanosis, or edema Neuro 07/19 x4 EXT, cn 2-12 grossly intact 76-year-old female with past medical history of hypertension, dyslipidemia, diabetes mellitus, CKD,CVA in 11/2015, and Alzheimer's dementia who resides at [facility] presented to the ER following a fall and reports of left-sided eric-neglect and left upper extremity weakness as per staff. The patient was recently admitted here from 02/02-02/11 and was treated for SIRS, SORAYA, and Metabolic encephalopathy. Transient Left Sided Eric-neglect and LUE Weakness 2/[address] Head with no acute findings MRI brain neg for CVA Neurological complaints have resolved in the ER MRA brain and US caroitid appreciated f/u tte, patient was uncooperative EKG noted to be in normal sinus rhythm Continue neurological checks We will continue to monitor patient on telemetry Continue patient on Plavix, statin Physical therapy ordered for functional optimization Hypertension, stable Continue regimen as ordered Dyslipidemia Continue statin Diabetes mellitus Insulin sliding scale Chronic kidney disease Serum creatinine at baseline History of CVA in 11/2015 Residual deficits include LUE ataxia Continue Plavix, statin DVT prophylaxis Heparin subcutaneous Dispo pending workup and PT. 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 VS,[place], I+O VS, Fishbone, I+O Laboratory Tests 02/18/17 05:07 Red Blood Count 4.15, Mean Corpuscular Volume 87.0, Mean Corpuscular Hemoglobin 28.7, Mean Corpuscular Hemoglobin Concent 33.0, Red Cell Distribution Width 13.4 , Calcium Level 9.1, Aspartate Amino Transf (AST/SGOT) 19, Alanine Aminotransferase (ALT/SGPT) 21, Alkaline Phosphatase 117, Total Bilirubin 0.3, Total Protein 6.6, Albumin 2.8 L Vital Signs Date Time Temp Pulse Resp B/P (MAP) Pulse Ox O2 Delivery O2 Flow Rate FiO2 02/18/17 11:59 97.5 64 16 136/63 (87) 95 Room Air I&O- Last 24 Hours up to 6 AM 02/19/17 06:00 Intake Total 60 ml Balance 60 ml SCARLET CARD MD Feb 18, 2017 15:53
[2017-02-18] MEDS: DULoxetine 30 MG CAP (CYMBALTA) PO SCH (21:09)
[2017-02-18] MEDS: ATORVASTATIN 20 MG TAB PO SCH (21:10)
[2017-02-19] VITALS: BP 149/70
[2017-02-19 04:00] VITALS: BP 118/70
[2017-02-19] MEDS: SLF 3 ML SYR IV SCH (06:00)
[2017-02-19 06:22] LABS: ALBUMIN 2.8 GM/DL (3.2-5.2); ALBUMIN/GLOBULIN RATIO 0.74 (1.00-1.93); BILIRUBIN,TOTAL 0.4 MG/DL (0.2-1.0); CALCIUM LEVEL 8.9 MG/DL (8.8-10.2); CREATININE FOR GFR 1.32 MG/DL (0.55-1.02); GLOMERULAR FILTRATION RATE 41.4 (>39); MAGNESIUM LEVEL 2.3 MG/DL (1.8-2.4); POTASSIUM SERUM 4.2 MEQ/L (3.5-5.1); TOTAL PROTEIN 6.6 GM/DL (6.4-8.2)
[2017-02-19 08:00] VITALS: BP 137/65
[2017-02-19] MEDS: HumaLOG INSULIN (NovoLOG) PER UNIT SC SCH (09:07)
[2017-02-19] MEDS: DOCUSATE SODIUM 100 MG CAP PO SCH (09:08)
[2017-02-19] MEDS: METOPROLOL TART 50 MG TAB PO SCH (09:08)
[2017-02-19] MEDS: CLOPIDOGREL 75 MG TAB PO SCH (09:08)
[2017-02-19] MEDS: amLODIPine 10 MG TAB PO SCH (09:08)
[2017-02-19] MEDS: LISINOPRIL 20 MG TAB PO SCH (09:08)
[2017-02-19] MEDS: VITAMIN D (CHOLECALCIFEROL) 400 INTERNATIONAL UNITS TAB PO SCH (09:08)
[2017-02-19] MEDS: FAMOTIDINE 20 MG TAB PO SCH (09:08)
[2017-02-19] MEDS: HEPARIN SOD (PORCINE) 5000 UNITS/ML VIAL SQ SCH (09:09)
--- NOTE | 2017-02-19 16:36 | DSES ---
DATE OF ADMISSION: 02/17/2017 DATE OF DISCHARGE: 02/19/2017 PRIMARY CARE PROVIDER: Dr. Juanito Montano at rehabilitation facility taken care of by Dr. Thompson. FINAL DIAGNOSES: Questionable transient ischemic attack (TIA) with fall. Hypertension. Dyslipidemia. Questionable symptoms of left sided hemineglect with left upper extremity weakness. Diabetes. Chronic kidney disease. History of cerebrovascular accident (CVA) November 2015. HISTORY OF PRESENT ILLNESS: This is a 76-year-old female patient with underlying medical history of hypertension, dyslipidemia, diabetes mellitus, chronic kidney disease, cerebrovascular accident (CVA) in November 2015, Alzheimer's dementia, resides at [facility] presented to the emergency room following a fall with questionable report of left-sided hemineglect and left upper extremity weakness as per staff. Patient was recently admitted on 02/02/2017 to 02/11/2017 was treated for systemic inflammatory response syndrome (SIRS) and acute kidney injury with metabolic encephalopathy. On presentation, patient has been returned to the [facility] Emergency Room after having a fall. Patient woke up at around 3 AM and states that she needed to use the bathroom, she reports she pressed the call metz a few times and did not hear a response, she subsequently tried to get out of the bed and go to the bathroom on her own, however she subsequently fell out of the bed. There was a report of trauma to the head and patient had a serial neurological exam done by staff and was noted to have left-sided hemineglect and left upper extremity weakness. Patient was subsequently brought to the emergency room for evaluation and management. HOSPITAL COURSE: The patient was admitted to the hospital. MRI of the brain was also done. CT of the head and cervical spine was done. MRI of the brain shows no acute myocardial infarction (MA). MRA of the brain was negative and carotid ultrasound shows less than 50% disease. Physical therapy was ordered. Patient currently returned to baseline able to tolerate oral. As per patient's nursing facility physician Dr. Thompson patient falls frequently, and patient is currently asymptomatic ready for discharge back to [facility] for further care and rehabilitation. Temperature 97, pulse 74, respirations 18, blood pressure 137/65, pulse ox 95% on room air. GENERAL: Patient alert, comfortable in no acute distress. HEENT: Normocephalic, atraumatic. Pupils equal, round and reactive. Extraocular muscles intact. Neck supple. PULMONARY: Bilaterally clear. CARDIAC: Regular rate and rhythm. Normal S1, S2. ABDOMEN: Soft, non-tender, positive bowel sounds. EXTREMITIES: No clubbing, cyanosis or edema. NEUROLOGIC: No focal deficits. LABORATORY DATA: WBC 6.5, Hemoglobin and hematocrit 11.9/36.1. Platelets 246. Chemistry: Sodium 141, potassium 4.2, chloride 107, bicarbonate 30, BUN 31, creatinine 1.32. DISCHARGE MEDICATION: Patient's home medication of acetaminophen 650 mg by mouth every 4 hours as needed. Norvasc 10 mg by mouth daily. Lipitor 40 mg by mouth at bedtime. Dulcolax rectal suppository 10 mg daily as needed. Tums 1000 mg by mouth every 4 hours as needed. Vitamin D 400 units by mouth daily. Plavix 75 mg by mouth daily. Colace 100 mg by mouth twice a day. Cymbalta 30 mg by mouth at bedtime. Lisinopril 20 mg by mouth daily. Metformin 500 mg by mouth twice a day. Metoprolol 50 mg by mouth twice a day. We will give him Milk of Magnesia 30 mL by mouth daily as needed. Myrbetriq 25 mg by mouth daily. PreserVision one capsule by mouth twice a day. Ranitidine 150 mg by mouth twice a day. Januvia 100 mg by mouth daily. Enema daily as needed. DISCHARGE INSTRUCTIONS: Patient is instructed to follow up with primary provider in 7 days. Return to the hospital if symptoms worsen. Continue physical therapy as ordered.
== END 2017-02-19 11:40 | DRG 69 ==
LOC: EDBD 12:56 → M ED 12:56 → M ED INP 16:21 → M PCU 20:48 → OBSVTOIN 02-18 16:32
PROVIDERS: ADMIT Internal Medicine; ATTEND Hospitalist
DX: G45.9 Transient cerebral ischemic attack, unspecified (principal); I12.9 Hypertensive chronic kidney disease with stage 1 through stage 4 chronic kidney disease, or unspecified chronic kidney disease; E78.5 Hyperlipidemia, unspecified; E11.9 Type 2 diabetes mellitus without complications; N18.9 Chronic kidney disease, unspecified; G30.9 Alzheimer's disease, unspecified; F02.80 Dementia in other diseases classified elsewhere, unspecified severity, without behavioral disturbance, psychotic disturbance, mood disturbance, and anxiety; R29.6 Repeated falls; Z79.899 Other long term (current) drug therapy; Z86.73 Personal history of transient ischemic attack (TIA), and cerebral infarction without residual deficits

== ENCOUNTER → 2017-02-19 | Outpatient (REF) | payer BC, MEDICAID, MEDICARE ==
[~2017-02-19] MED LIST changes: +AMLO25TA PO; +BISA10SU4 PR; +ENEMENE16 PR; +JANU100T PO; +LISI-538 PO; +LOPR1TAB6 PO; +METF500T13 PO; +RANI150C PO; +VITA100067 PO; +VITATAB54 PO
== END ==
DX: I10 Essential (primary) hypertension (principal); Z53.9 Procedure and treatment not carried out, unspecified reason

== ENCOUNTER → 2017-02-21 | Outpatient (REF) ==
[2017-02-21 18:08] LABS: MEAN CORPUSCULAR HEMOGLOBIN 29.1 pg (27.0-33.0); MEAN CORPUSCULAR HGB CONC 32.8 g/dl (32.0-36.5); PLATELET COUNT, AUTOMATED 268 10^3/uL (150-450); RED CELL DISTRIBUTION WIDTH 13.6 % (11.5-14.5); WHITE BLOOD COUNT 6.6 10^3/uL (4.0-10.0)
[2017-02-21 18:28] LABS: CALCIUM LEVEL 9.1 MG/DL (8.8-10.2); CREATININE FOR GFR 1.35 MG/DL (0.55-1.02); GLOMERULAR FILTRATION RATE 40.4 (>39); POTASSIUM SERUM 4.9 MEQ/L (3.5-5.1)
== END ==
DX: Z00.00 Encounter for general adult medical examination without abnormal findings (principal)

== ENCOUNTER → 2017-02-26 | Outpatient (REF) ==
[2017-02-26 17:44] LABS: CREATININE FOR GFR 1.57 MG/DL (0.55-1.02); GLOMERULAR FILTRATION RATE 33.8 (>39); POTASSIUM SERUM 4.7 MEQ/L (3.5-5.1)
[2017-02-26 18:01] LABS: MEAN CORPUSCULAR HEMOGLOBIN 29.2 pg (27.0-33.0); MEAN CORPUSCULAR HGB CONC 33.2 g/dl (32.0-36.5); PLATELET COUNT, AUTOMATED 235 10^3/uL (150-450); RED CELL DISTRIBUTION WIDTH 13.7 % (11.5-14.5); WHITE BLOOD COUNT 7.3 10^3/uL (4.0-10.0)
== END ==
DX: I10 Essential (primary) hypertension (principal)

== ENCOUNTER → 2017-02-28 | Outpatient (REF) | payer MEDICARE, MEDICAID ==
[2017-02-28 14:28] LABS: CALCIUM LEVEL 8.3 MG/DL (8.8-10.2); CREATININE FOR GFR 1.22 MG/DL (0.55-1.02); GLOMERULAR FILTRATION RATE 45.3 (>39); POTASSIUM SERUM 4.6 MEQ/L (3.5-5.1)
== END ==
DX: N18.9 Chronic kidney disease, unspecified (principal); E86.0 Dehydration

== ENCOUNTER → 2017-03-03 | Outpatient (REF) ==
[2017-03-03 12:31] LABS: CALCIUM LEVEL 9.1 MG/DL (8.8-10.2); CREATININE FOR GFR 0.99 MG/DL (0.55-1.02); GLOMERULAR FILTRATION RATE 57.6 (>39); POTASSIUM SERUM 4.1 MEQ/L (3.5-5.1)
== END ==
DX: N17.9 Acute kidney failure, unspecified (principal); E86.0 Dehydration

== ENCOUNTER → 2017-03-12 | Outpatient (REF) | payer MEDICARE, MEDICAID ==
[2017-03-12 17:12] LABS: MEAN CORPUSCULAR HEMOGLOBIN 29.5 pg (27.0-33.0); MEAN CORPUSCULAR VOLUME 86.6 fl (80.0-96.0); PLATELET COUNT, AUTOMATED 231 10^3/uL (150-450); RED CELL DISTRIBUTION WIDTH 13.3 % (11.5-14.5); WHITE BLOOD COUNT 8.9 10^3/uL (4.0-10.0)
[2017-03-12 19:07] LABS: ANION GAP 10 MEQ/L (8-16); BLOOD UREA NITROGEN 25 MG/DL (7-18); CALCIUM LEVEL 8.5 MG/DL (8.8-10.2); CARBON DIOXIDE LEVEL 25 MEQ/L (21-32); CHLORIDE LEVEL 103 MEQ/L (98-107); CREATININE FOR GFR 1.16 MG/DL (0.55-1.02); GLUCOSE, FASTING 335 MG/DL (83-110); POTASSIUM SERUM 4.2 MEQ/L (3.5-5.1); SODIUM LEVEL 138 MEQ/L (136-145)
== END ==
DX: N39.0 Urinary tract infection, site not specified (principal)
CPT/HCPCS: 80048

== ENCOUNTER → 2017-03-25 | Outpatient (REF) | payer MEDICARE, MEDICAID ==
[2017-03-25 11:10] LABS: HEMATOCRIT 38.3 % (36.0-47.0); HEMOGLOBIN 12.6 g/dl (12.0-16.0); MEAN CORPUSCULAR HGB CONC 32.9 g/dl (32.0-36.5); PLATELET COUNT, AUTOMATED 252 10^3/uL (150-450); RED BLOOD COUNT 4.35 10^6/uL (4.00-5.40); RED CELL DISTRIBUTION WIDTH 13.2 % (11.5-14.5); WHITE BLOOD COUNT 10.5 10^3/uL (4.0-10.0)
[2017-03-25 11:34] LABS: ANION GAP 12 MEQ/L (8-16); BLOOD UREA NITROGEN 21 MG/DL (7-18); CALCIUM LEVEL 8.9 MG/DL (8.8-10.2); CARBON DIOXIDE LEVEL 24 MEQ/L (21-32); CHLORIDE LEVEL 101 MEQ/L (98-107); CREATININE FOR GFR 1.38 MG/DL (0.55-1.02); GLOMERULAR FILTRATION RATE 39.3 (>39); POTASSIUM SERUM 4.6 MEQ/L (3.5-5.1); SODIUM LEVEL 137 MEQ/L (136-145)
[2017-03-25 11:39] LABS: GLUCOSE, FASTING 413 MG/DL (83-110)
== END ==
DX: I10 Essential (primary) hypertension (principal)
CPT/HCPCS: 80048

== ENCOUNTER → 2017-04-08 | Outpatient (REF) | payer MEDICARE, MEDICAID ==
[2017-04-08 09:11] LABS: HEMATOCRIT 37.8 % (36.0-47.0); HEMOGLOBIN 12.5 g/dl (12.0-16.0); MEAN CORPUSCULAR HEMOGLOBIN 29.3 pg (27.0-33.0); MEAN CORPUSCULAR HGB CONC 33.1 g/dl (32.0-36.5); MEAN CORPUSCULAR VOLUME 88.7 fl (80.0-96.0); PLATELET COUNT, AUTOMATED 209 10^3/uL (150-450); RED BLOOD COUNT 4.26 10^6/uL (4.00-5.40); RED CELL DISTRIBUTION WIDTH 13.2 % (11.5-14.5); WHITE BLOOD COUNT 6.7 10^3/uL (4.0-10.0)
[2017-04-08 09:31] LABS: ALBUMIN 3.1 GM/DL (3.2-5.2); ALBUMIN/GLOBULIN RATIO 0.89 (1.00-1.93); ALKALINE PHOSPHATASE 99 U/L (45-117); ALT/SGPT 15 U/L (12-78); ANION GAP 8 MEQ/L (8-16); AST/SGOT 11 U/L (7-37); BILIRUBIN,DIRECT < 0.1 MG/DL (0.0-0.2); BILIRUBIN,TOTAL 0.3 MG/DL (0.2-1.0); BLOOD UREA NITROGEN 23 MG/DL (7-18); CALCIUM LEVEL 9.1 MG/DL (8.8-10.2); CARBON DIOXIDE LEVEL 29 MEQ/L (21-32); CHLORIDE LEVEL 106 MEQ/L (98-107); CREATININE FOR GFR 1.13 MG/DL (0.55-1.02); GLOMERULAR FILTRATION RATE 49.4 (>39); GLUCOSE, FASTING 171 MG/DL (70-100); POTASSIUM SERUM 4.6 MEQ/L (3.5-5.1); SODIUM LEVEL 143 MEQ/L (136-145); TOTAL PROTEIN 6.6 GM/DL (6.4-8.2)
== END ==
DX: F03.90 Unspecified dementia, unspecified severity, without behavioral disturbance, psychotic disturbance, mood disturbance, and anxiety (principal)
CPT/HCPCS: 80076

== ENCOUNTER → 2017-04-30 | Outpatient (REF) | payer MEDICARE, MEDICAID ==
[2017-04-30 11:23] LABS: VALPROIC ACID (DEPAKOTE) 13.4 UG/ML (50.0-100.0)
== END ==
DX: F03.90 Unspecified dementia, unspecified severity, without behavioral disturbance, psychotic disturbance, mood disturbance, and anxiety (principal); Z51.81 Encounter for therapeutic drug level monitoring
CPT/HCPCS: 80164

== ENCOUNTER → 2017-07-08 | Outpatient (REF) | DX: M79.642 Pain in left hand (principal) ==

== ENCOUNTER → 2017-09-16 | Outpatient (REF) ==
[2017-09-16 11:14] LABS: ALBUMIN/GLOBULIN RATIO 0.91 (1.00-1.93); ALKALINE PHOSPHATASE 109 U/L (45-117); ALT/SGPT 25 U/L (12-78); AST/SGOT 19 U/L (7-37); BILIRUBIN,DIRECT < 0.1 MG/DL (0.0-0.2); BILIRUBIN,TOTAL 0.4 MG/DL (0.2-1.0); TOTAL PROTEIN 6.3 GM/DL (6.4-8.2)
== END ==
DX: F03.90 Unspecified dementia, unspecified severity, without behavioral disturbance, psychotic disturbance, mood disturbance, and anxiety (principal)

== ENCOUNTER → 2017-10-21 | Outpatient (REF) | DX: F03.90 Unspecified dementia, unspecified severity, without behavioral disturbance, psychotic disturbance, mood disturbance, and anxiety (principal) ==

== ENCOUNTER → 2017-11-18 | Outpatient (REF) ==
[2017-11-18 11:11] LABS: HEMATOCRIT 37.1 % (36.0-47.0); HEMOGLOBIN 12.2 g/dl (12.0-15.5); MEAN CORPUSCULAR HGB CONC 32.9 g/dl (32.0-36.5); MEAN CORPUSCULAR VOLUME 91.2 fl (80.0-96.0); PLATELET COUNT, AUTOMATED 173 10^3/uL (150-450); RED BLOOD COUNT 4.07 10^6/uL (4.00-5.40); RED CELL DISTRIBUTION WIDTH 13.2 % (11.5-14.5); WHITE BLOOD COUNT 6.8 10^3/uL (4.0-10.0)
[2017-11-18 11:24] LABS: ANION GAP 12 MEQ/L (8-16); BLOOD UREA NITROGEN 31 MG/DL (7-18); CALCIUM LEVEL 8.4 MG/DL (8.8-10.2); CARBON DIOXIDE LEVEL 20 MEQ/L (21-32); CHLORIDE LEVEL 111 MEQ/L (98-107); CREATININE FOR GFR 1.36 MG/DL (0.55-1.30); GLOMERULAR FILTRATION RATE 39.9 (>39); GLUCOSE, FASTING 233 MG/DL (70-100); POTASSIUM SERUM 4.7 MEQ/L (3.5-5.1); SODIUM LEVEL 143 MEQ/L (136-145)
[2017-11-18 11:28] LABS: ESTIMATED AVERAGE GLUCOSE 183 MG/DL (60-110)
== END ==
DX: E11.9 Type 2 diabetes mellitus without complications (principal)

== ENCOUNTER → 2017-12-02 | Outpatient (CLI) | payer MEDICARE, MEDICAID | LOC: M ST 10:45 | DX: R13.12 Dysphagia, oropharyngeal phase (principal) | CPT/HCPCS: 74230 ==

== ENCOUNTER → 2017-12-16 | Outpatient (REF) | payer MEDICARE, MEDICAID ==
[2017-12-16 11:23] LABS: ALBUMIN/GLOBULIN RATIO 0.94 (1.00-1.93); ALKALINE PHOSPHATASE 120 U/L (45-117); ALT/SGPT 22 U/L (12-78); AST/SGOT 15 U/L (7-37); BILIRUBIN,DIRECT < 0.1 MG/DL (0.0-0.2); BILIRUBIN,TOTAL 0.3 MG/DL (0.2-1.0); TOTAL PROTEIN 6.2 GM/DL (6.4-8.2)
== END ==
DX: F03.90 Unspecified dementia, unspecified severity, without behavioral disturbance, psychotic disturbance, mood disturbance, and anxiety (principal)
CPT/HCPCS: 80076

== ENCOUNTER → 2018-01-16 | Outpatient (REF) | payer MEDICARE, MEDICAID ==
[2018-01-16 09:45] LABS: HEMATOCRIT 38.3 % (36.0-47.0); HEMOGLOBIN 12.7 g/dl (12.0-15.5); MEAN CORPUSCULAR HEMOGLOBIN 30.2 pg (27.0-33.0); MEAN CORPUSCULAR HGB CONC 33.2 g/dl (32.0-36.5); MEAN CORPUSCULAR VOLUME 91.2 fl (80.0-96.0); PLATELET COUNT, AUTOMATED 161 10^3/uL (150-450); RED CELL DISTRIBUTION WIDTH 12.7 % (11.5-14.5); WHITE BLOOD COUNT 5.2 10^3/uL (4.0-10.0)
[2018-01-16 13:39] LABS: ANION GAP 10 MEQ/L (8-16); BLOOD UREA NITROGEN 28 MG/DL (7-18); CALCIUM LEVEL 8.4 MG/DL (8.8-10.2); CARBON DIOXIDE LEVEL 23 MEQ/L (21-32); CHLORIDE LEVEL 109 MEQ/L (98-107); CREATININE FOR GFR 1.48 MG/DL (0.55-1.30); GLOMERULAR FILTRATION RATE 36.2 (>39); GLUCOSE, FASTING 199 MG/DL (70-100); POTASSIUM SERUM 4.7 MEQ/L (3.5-5.1); SODIUM LEVEL 142 MEQ/L (136-145)
== END ==
DX: R53.1 Weakness (principal)
CPT/HCPCS: 80048

== ENCOUNTER → 2018-01-20 | Outpatient (REF) | payer MEDICARE, MEDICAID | DX: F03.90 Unspecified dementia, unspecified severity, without behavioral disturbance, psychotic disturbance, mood disturbance, and anxiety (principal) ==

== ENCOUNTER → 2018-01-27 | Outpatient (REF) | payer MEDICARE, MEDICAID ==
[2018-01-27 14:56] LABS: HEMATOCRIT 40.8 % (36.0-47.0); HEMOGLOBIN 13.4 g/dl (12.0-15.5); MEAN CORPUSCULAR HEMOGLOBIN 30.2 pg (27.0-33.0); MEAN CORPUSCULAR HGB CONC 32.8 g/dl (32.0-36.5); MEAN CORPUSCULAR VOLUME 91.9 fl (80.0-96.0); PLATELET COUNT, AUTOMATED 180 10^3/uL (150-450); RED BLOOD COUNT 4.44 10^6/uL (4.00-5.40); RED CELL DISTRIBUTION WIDTH 12.7 % (11.5-14.5); WHITE BLOOD COUNT 10.1 10^3/uL (4.0-10.0)
[2018-01-27 15:26] LABS: ANION GAP 8 MEQ/L (8-16); BLOOD UREA NITROGEN 33 MG/DL (7-18); CALCIUM LEVEL 8.6 MG/DL (8.8-10.2); CARBON DIOXIDE LEVEL 25 MEQ/L (21-32); CHLORIDE LEVEL 107 MEQ/L (98-107); CREATININE FOR GFR 1.27 MG/DL (0.55-1.30); GLOMERULAR FILTRATION RATE 43.2 (>39); GLUCOSE, FASTING 179 MG/DL (70-100); POTASSIUM SERUM 4.9 MEQ/L (3.5-5.1); SODIUM LEVEL 140 MEQ/L (136-145)
== END ==
DX: R05 Cough (principal)
CPT/HCPCS: 80048

== ENCOUNTER → 2018-02-17 | Outpatient (REF) | payer MEDICARE, MEDICAID ==
[2018-02-17 11:03] LABS: AST/SGOT 18 U/L (7-37)
[2018-02-17 11:04] LABS: ALBUMIN 3.1 GM/DL (3.2-5.2); ALBUMIN/GLOBULIN RATIO 0.91 (1.00-1.93); ALKALINE PHOSPHATASE 108 U/L (45-117); ALT/SGPT 19 U/L (12-78); BILIRUBIN,DIRECT < 0.1 MG/DL (0.0-0.2); BILIRUBIN,TOTAL 0.2 MG/DL (0.2-1.0); TOTAL PROTEIN 6.5 GM/DL (6.4-8.2)
== END ==
DX: F03.90 Unspecified dementia, unspecified severity, without behavioral disturbance, psychotic disturbance, mood disturbance, and anxiety (principal)
CPT/HCPCS: 80076

== ENCOUNTER → 2018-03-18 | Outpatient (REF) | payer MEDICARE, MEDICAID ==
[~2018-03-18] MED LIST changes: +MILK12002 PO; -MILKSUS PO
[2018-03-18 12:17] LABS: ALBUMIN 3.1 GM/DL (3.2-5.2); ALT/SGPT 21 U/L (12-78); BILIRUBIN,DIRECT < 0.1 MG/DL (0.0-0.2); BILIRUBIN,TOTAL 0.3 MG/DL (0.2-1.0); TOTAL PROTEIN 6.4 GM/DL (6.4-8.2)
== END ==
DX: F03.90 Unspecified dementia, unspecified severity, without behavioral disturbance, psychotic disturbance, mood disturbance, and anxiety (principal)

== ENCOUNTER → 2018-05-12 | Outpatient (REF) | payer MEDICARE, MEDICAID ==
[~2018-05-12] MED LIST changes: -ENEMENE16 PR; +ENEMENE4 PR; +MILK120011 PO; -MILK12002 PO
[2018-05-12 16:55] LABS: HEMOGLOBIN A1c 7.6 %
== END ==
DX: N63.0 Unspecified lump in unspecified breast (principal); Z79.899 Other long term (current) drug therapy

== ENCOUNTER → 2018-05-14 | Outpatient (CLI) | payer MEDICARE, MEDICAID ==
--- NOTE | 2018-05-14 15:48 | REP ---
Digital diagnostic bilateral mammography with CAD, and focused right breast sonography. History: Subareolar lump right breast times 2 weeks. Comparison mammography March 26, 2013, March 13, 2010, and April 11, 2008. Mammographic findings: The patient was unable to tolerate positioning for 3-D tomography. Routine views of each breast were obtained. There is diffuse dermal skin thickening affecting the right breast. This is a new finding. There is also a mild pattern of diffuse stromal thickening. This appears to be bilateral and may be the result of exogenous estrogen. There are benign secretory calcifications noted bilaterally. No breast mass lesion is visible. No suspicious microcalcification or architectural distortion is seen. Sonographic findings: The periareolar region of the right breast was scanned in the area of palpable lump. The periareolar skin was noted to be indurated and firm. Heterogeneous fibroglandular breast echotexture is seen without sonographic evidence of mass, cyst or abnormal fluid collection. Impression: BIRADS 4: BI-RADS/ACR category 4 mammogram. Suspicious Abnormality - biopsy should be considered. BI-RADS category four suspicious right breast imaging. New finding of diffuse skin thickening most pronounced in the periareolar skin. Early inflammatory carcinoma or Paget's disease could have this appearance. Inflammatory cellulitis would also be a possibility. Consider skin biopsy and evaluation by breast surgery. There is no mammographic or sonographic mass visible in the parenchyma of the breast. This mammogram was interpreted with the aid of an FDA-approved computer-aided detection system. The patient states she had a clinical breast exam in April 2018. The patient letter being requested is m4. This patient's estimated Tyrer-Cuzick lifetime risk assessment for the breast cancer is 2.3 %. Electronically Signed by Timothy Olson MD 05/14/2018 04:34 P
== END ==
LOC: M RAD 13:01
PROVIDERS: ATTEND Physician Assistant
DX: R92.8 Other abnormal and inconclusive findings on diagnostic imaging of breast (principal)

== ENCOUNTER → 2018-05-29 | Outpatient (CLI) | payer MEDICARE, MEDICAID ==
--- NOTE | 2018-05-29 16:01 | REP ---
CT CHEST WITHOUT CONTRAST: 05/29/2018. Clinical history: Adenopathy. Patient with abnormal mammogram and right breast with skin thickening, suspicious for inflammatory carcinoma or similar process. Technique. Noncontrast images through the chest with coronal and sagittal reconstructions provided. Findings: The lung pickard are well inflated. There is some dependent atelectatic change in both lower lung zones right greater than left. Peripheral fibrotic changes are seen. There are a few scattered nodules present. 4 mm nodule posterior to the major fissure in the right lower lobe on image 43. Another on image 42 in the lateral segment right middle lobe and the with other subpleural fibrotic changes in the upper lobes. No effusion, pleural plaque or pleural-based mass. Heart size not enlarged and no pericardial thickening or effusion. Small hiatal hernia suggested. The aorta has calcifications but no aneurysm. There is no evidence of pathologic sized mediastinal or hilar lymphadenopathy. Calcified granulomas are seen at the right hilum. There are also calcified granulomas in the liver. The right axilla shows adenopathy. The largest node is about 15.7 mm in short axis. There are other nodes near a centimeter and inflammatory changes are seen with ill-definition in the fat surrounding them. Left axillary nodes are normal. No supraclavicular adenopathy. The skin over the areola and large surrounding area of the right breast is thickened and edematous. In the upper abdomen the liver is without focal mass. The left lobe mildly prominent. No splenomegaly or focal lesion. Upper pole left kidney is seen in part suggesting some atrophy. lobation noted. Adrenal glands without mass. That portion of pancreas included was unremarkable. The gallbladder shows no calcified stone. Impression: 1. There is right axillary adenopathy up to 15 mm for the largest node and several other nodes a centimeter in size. Infiltration edema of the fat adjacent to these nodes. The left axilla, supraclavicular regions and mediastinum without similar findings. 2. A few tiny nodules in the 4 mm range in the right lung. The lesions of this size may be followed. If the patient has high risk for metastatic disease. A follow-up in 6 months could be performed. There is no acute infiltrate, parenchymal mass or pleural effusion. 3. Some cardiomegaly. No pericardial thickening or effusion. Suspected small hiatal hernia. 4. Adrenal glands normal. Slight prominence left hepatic lobe but no focal hepatic lesion. Electronically Signed by Billy Jimenez MD 05/29/2018 06:42 P
== END ==
LOC: M RAD 10:10
PROVIDERS: ATTEND Surgery
DX: R59.1 Generalized enlarged lymph nodes (principal); R91.8 Other nonspecific abnormal finding of lung field; I51.7 Cardiomegaly

== ENCOUNTER → 2018-06-03 | Outpatient (REF) | payer MEDICARE, MEDICAID | LOC: M LAB REF 12:34 | PROVIDERS: ATTEND Surgery | DX: C44.591 Other specified malignant neoplasm of skin of breast (principal) ==

== ENCOUNTER → 2018-06-16 | Outpatient (REF) | payer MEDICARE, MEDICAID ==
[2018-06-16 10:23] LABS: ALBUMIN 3.6 GM/DL (3.2-5.2); ALT/SGPT 22 U/L (12-78); BILIRUBIN,DIRECT < 0.1 MG/DL (0.0-0.2); BILIRUBIN,TOTAL 0.3 MG/DL (0.2-1.0)
== END ==
PROVIDERS: ATTEND Family Medicine
DX: F03.90 Unspecified dementia, unspecified severity, without behavioral disturbance, psychotic disturbance, mood disturbance, and anxiety (principal)

== ENCOUNTER → 2018-06-18 | Outpatient (CLI) | payer MEDICARE, MEDICAID ==
[~2018-06-18] MED LIST changes: -/AMLO25TA PO; -/FENO48TA PO; -ASPI81CH PO; +ASPI81CH49 PO; +BENG1CRE3 TOP; +CRES10TA32 OR; +CVS5CHW2 PO; -DULO30CA PO; +DULO30CA9 PO; +GNP650TA8 PO; +LETR2.5T2 PO; +MOM30SS PO; +NORV2TAB PO; +PRES10CA2 PO; -ROSU10TA OR; +TOUJ1.2I SC; +TRIC1TAB PO; +TRUL10IN SC
--- NOTE | 2018-06-19 07:09 | RADONC ---
RADIATION ONCOLOGY CONSULTATION NOTE DATE: 06/18/2018 CHART NUMBER: [id number] DIAGNOSIS: Right breast cancer. STAGE Clinical III B, T4d, cN2a, M0, ER positive, MI positive, HER2 negative, grade 2. ECOG PERFORMANCE STATUS: 4 CONSULTATION NOTE: Ms. Unger is a 77-year-old white female with multiple medical issues who was noticed of a palpable mass involving the skin of her right breast in the nipple region. On 06/03/2018, a punch biopsy was undertaken and pathology revealed invasive ductal carcinoma, moderately differentiated with worrisome lymphatic dermal invasion. The tumor was estrogen receptor and progesterone receptor positive and HER2 negative. Subsequent CT scan of the chest was undertaken and the right axilla showed lymphadenopathy. The largest lymph node measured 1.7 cm in short axis. There were other nodes near the centimeter range and inflammatory changes were seen with an ill-defined area of the surrounding fat. No supraclavicular lymph nodes were noted. In addition, there were a few tiny nodules in the right lung in the 4 mm range. The patient is presenting to me to discuss her therapeutic options and help coordinate her care. PAST MEDICAL HISTORY: The patient's past medical history is positive for hypertension, hypercholesterolemia, diabetes, anxiety, depression, heart disease, chronic kidney disease, gastroesophageal reflux disease, Alzheimer's disease, dementia, stroke, bladder surgery. SOCIAL HISTORY: The patient is a resident of [facility]. She does not smoke cigarettes nor abuse alcohol. ALLERGIES: The patient has NO KNOWN DRUG ALLERGIES. FAMILY HISTORY: The patient's family history is positive for a niece with breast cancer. REVIEW OF SYSTEMS: The patient's review of systems is positive for dementia and physical limitations especially since her stroke. She has decreased energy and some difficulty swallowing. She does not at this time appear to have any fevers, chills, night sweats, diplopia, anorexia, weight loss, visual disturbances, chest pain, urinary or bowel difficulties or bone pain. PHYSICAL EXAMINATION: The patient is a chronically ill, elderly white female appearing in a wheelchair. HEENT: Normocephalic, atraumatic. Extraocular movements are intact. I do not appreciate any cervical, supraclavicular, infraclavicular or axillary lymphadenopathy present. There is a bandage over a healing surgical scar present over her mid right breast consistent with her history. There appears to be firmness just underneath that bandage. Her left breast is free of masses or discharge. Her lungs are clear to auscultation and percussion. 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 She was seen by Dr. Tejada and is now being referred to me for consideration of the external beam portion of her treatment. The patient is scheduled to be seen by medical oncology on Friday. I have scheduled the patient for discussion at our multidisciplinary conference tumor conference on Friday at noon. Dr. Tejada will be then seeing the patient on Friday at 1 to discuss the findings of the tumor conference. I will be seeing the patient following Dr. Tejada to help coordinate her care. I look forward to the expert opinion of the medical oncologist with regards to the timing of any intervention they can give. Final recommendations will be pending discussion and tumor conference. Thank you for allowing us to participate in the care of this very pleasant woman. I will keep you informed of any new developments as they occur. As always, with warm regards, Fidel Pederson cc: Mook Tejada Jr, MD Sara McGee, MD MTDD
== END ==
LOC: M ONCR 12:31
PROVIDERS: ATTEND Radiology Radiation Oncology
DX: C50.911 Malignant neoplasm of unspecified site of right female breast (principal)

== ENCOUNTER → 2018-06-24 | Outpatient (CLI) | payer MEDICARE, MEDICAID ==
--- NOTE | 2018-06-24 16:25 | RADONC ---
RADIATION ONCOLOGY PROGRESS NOTE DATE: 06/24/2018 CHART NUMBER: [id number] DIAGNOSIS: Right breast cancer. STAGE: Clinical III B, T4D, cN2a, M0, ER positive, ND positive, HER2/isabell negative, grade 2. ECOG PERFORMANCE STATUS: 4 PROGRESS NOTE: Ms. Unger is an 78-year-old white female with the diagnosis of what appears to be inflammatory breast carcinoma in the right side who has multiple medical issues. She was seen by medical oncology and has started hormonal therapy. We presented this case at our multidisciplinary tumor conference and it was decided to treat her with her hormonal treatments at this point. She is being followed closely by her medical oncologist and will be for the next several months. After 3 or 4 months of this treatment, she will be referred back to Dr. Tejada for reevaluation and discussion of local regional treatment. I have therefore not set her up for any followup in our office at this time. cc: Mook Tejada Jr, MD [place], MD
== END ==
LOC: M ONCR 14:15
PROVIDERS: ATTEND Radiology Radiation Oncology
DX: C50.111 Malignant neoplasm of central portion of right female breast (principal)

== ENCOUNTER → 2018-07-01 | Outpatient (CLI) | payer MEDICARE, MEDICAID ==
--- NOTE | 2018-07-01 15:14 | REP ---
PET/CT: History: Staging breast carcinoma. Comparisons: Comparison chest CT study May 29, 2018. Comparison breast sonography and mammography May 14, 2018. TECHNIQUE: 59 minutes following the intravenous injection of a 9.82 mCi dose of F-18 FDG, three-dimensional PET scintigraphy is acquired from the skull base to the proximal thighs. Triplanar noncontrast CT scanning is acquired through the same anatomic range for attenuation correction, and image registration with scan parameters optimized to minimize radiation exposure to the patient. PET scintigraphy and CT datasets were fused and displayed on a workstation with multiplanar and projection display capability. PET/CT Findings: There is hypermetabolic uptake in a linear area of dermal thickening in the right breast with maximum standard uptake value 5.70. In the right upper outer quadrant there is an area with maximum standard uptake value of 6.19. There is hypermetabolic right axillary lymphadenopathy as seen on recent chest CT. Maximum standard uptake value here is 6.60. Unfortunately there is a mildly hypermetabolic subtle low density lesion in the right lobe of the liver with maximum standard uptake value of 6.01. This is suspicious for a hepatic metastasis. Also noted is a suspicious hypermetabolic subtly radiolucent lesion in the right side of the S1 vertebral body. Maximum standard uptake value here is 8.57. There is hypermetabolic uptake in the region of the right posterior 4th rib or costovertebral junction where a maximum standard uptake value is 4.75. There is also a small focal intramedullary hypermetabolic uptake lesion in the left proximal humerus. These skeletal lesions are suspicious for bony metastasis. Impression: Hypermetabolic uptake noted in the right breast, right axillary lymph nodes, in a focal liver lesion, and in three skeletal sites suspicious for metastatic disease. Electronically Signed by Timothy Olson MD 07/01/2018 08:27 P
== END ==
LOC: M PLARAD 09:11
PROVIDERS: ATTEND Internal Medicine Medical Oncology
DX: C50.811 Malignant neoplasm of overlapping sites of right female breast (principal); R59.9 Enlarged lymph nodes, unspecified; R93.2 Abnormal findings on diagnostic imaging of liver and biliary tract; R93.7 Abnormal findings on diagnostic imaging of other parts of musculoskeletal system
CPT/HCPCS: 78815; A9552

== ENCOUNTER → 2018-08-18 | Outpatient (REF) | payer MEDICARE, MEDICAID ==
[2018-08-18 09:24] LABS: HEMATOCRIT 41.2 % (36.0-47.0); HEMOGLOBIN 13.5 g/dl (12.0-15.5); MEAN CORPUSCULAR HGB CONC 32.8 g/dl (32.0-36.5); MEAN CORPUSCULAR VOLUME 94.7 fl (80.0-96.0); PLATELET COUNT, AUTOMATED 183 10^3/uL (150-450); RED BLOOD COUNT 4.35 10^6/uL (4.00-5.40); WHITE BLOOD COUNT 4.9 10^3/uL (4.0-10.0)
[2018-08-18 10:05] LABS: BASOPHILS 1 % (0-4); EOSINOPHILS 1 % (0-5); LYMPHOCYTES 26 % (16-52); MONOCYTES 7 % (0-8); NEUTROPHILS 65 % (35-75); PLATELET ESTIMATE NORMAL (NORMAL)
== END ==
DX: C50.919 Malignant neoplasm of unspecified site of unspecified female breast (principal)

== ENCOUNTER → 2018-08-19 | Outpatient (REF) | payer MEDICARE, MEDICAID | PROVIDERS: ATTEND Physician Assistant | DX: R73.9 Hyperglycemia, unspecified (principal) ==

== ENCOUNTER → 2018-08-25 | Outpatient (REF) | payer MEDICARE, MEDICAID ==
[~2018-08-25] MED LIST changes: +IBRA125C PO
[2018-08-25 09:46] LABS: HEMATOCRIT 39.1 % (36.0-47.0); HEMOGLOBIN 12.9 g/dl (12.0-15.5); MEAN CORPUSCULAR HEMOGLOBIN 31.3 pg (27.0-33.0); MEAN CORPUSCULAR VOLUME 94.9 fl (80.0-96.0); PLATELET COUNT, AUTOMATED 135 10^3/uL (150-450); RED BLOOD COUNT 4.12 10^6/uL (4.00-5.40); WHITE BLOOD COUNT 2.4 10^3/uL (4.0-10.0)
[2018-08-25 10:31] LABS: ATYPICAL LYMPH 1 % (0-5); EOSINOPHILS 3 % (0-5); LYMPHOCYTES 28 % (16-52); MONOCYTES 3 % (0-8); NEUTROPHILS 65 % (35-75)
[2018-08-25 10:32] LABS: PLATELET ESTIMATE DECREASED (NORMAL)
== END ==
DX: C50.919 Malignant neoplasm of unspecified site of unspecified female breast (principal)

== ENCOUNTER → 2018-09-01 | Outpatient (REF) | payer MEDICARE, MEDICAID ==
[~2018-09-01] MED LIST changes: +IBRA100C PO
[2018-09-01 09:29] LABS: BASO % 0.5 % (0.0-1.0); EOS % 1.1 % (0.0-3.0); HEMATOCRIT 36.6 % (36.0-47.0); HEMOGLOBIN 12.1 g/dl (12.0-15.5); LYMPH # 0.7 10^3/uL (1.5-4.5); LYMPH % 34.8 % (24.0-44.0); MEAN CORPUSCULAR HEMOGLOBIN 31.2 pg (27.0-33.0); MEAN CORPUSCULAR HGB CONC 33.1 g/dl (32.0-36.5); MEAN CORPUSCULAR VOLUME 94.3 fl (80.0-96.0); MONO # 0.2 10^3/uL (0.0-0.8); MONO % 9.6 % (0.0-5.0); NEUTROPHILS % 52.9 % (36.0-66.0); PLATELET COUNT, AUTOMATED 100 10^3/uL (150-450); RED BLOOD COUNT 3.88 10^6/uL (4.00-5.40)
[2018-09-01 09:54] LABS: WHITE BLOOD COUNT 1.9 10^3/uL (4.0-10.0)
== END ==
DX: C79.81 Secondary malignant neoplasm of breast (principal)

== ENCOUNTER → 2018-09-08 | Outpatient (REF) | payer MEDICARE, MEDICAID ==
[2018-09-08 10:01] LABS: BASO # 0.1 10^3/uL (0.0-0.2); BASO % 1.3 % (0.0-1.0); EOS % 0.8 % (0.0-3.0); HEMATOCRIT 38.5 % (36.0-47.0); HEMOGLOBIN 12.6 g/dl (12.0-15.5); LYMPH # 0.9 10^3/uL (1.5-4.5); LYMPH % 23.2 % (24.0-44.0); MEAN CORPUSCULAR HEMOGLOBIN 30.7 pg (27.0-33.0); MEAN CORPUSCULAR HGB CONC 32.7 g/dl (32.0-36.5); MEAN CORPUSCULAR VOLUME 93.7 fl (80.0-96.0); MONO # 0.5 10^3/uL (0.0-0.8); MONO % 12.9 % (0.0-5.0); NEUTROPHILS # 2.3 10^3/uL (1.8-7.7); NEUTROPHILS % 61.5 % (36.0-66.0); PLATELET COUNT, AUTOMATED 235 10^3/uL (150-450); RED BLOOD COUNT 4.11 10^6/uL (4.00-5.40); WHITE BLOOD COUNT 3.7 10^3/uL (4.0-10.0)
[2018-09-08 10:32] LABS: ALBUMIN 3.1 GM/DL (3.2-5.2); BILIRUBIN,TOTAL 0.3 MG/DL (0.2-1.0); CALCIUM LEVEL 8.5 MG/DL (8.8-10.2); CREATININE FOR GFR 1.52 MG/DL (0.55-1.30); POTASSIUM SERUM 4.6 MEQ/L (3.5-5.1); TOTAL PROTEIN 6.6 GM/DL (6.4-8.2)
== END ==
PROVIDERS: ATTEND Physician Assistant
DX: C50.919 Malignant neoplasm of unspecified site of unspecified female breast (principal)

== ENCOUNTER → 2018-09-15 | Outpatient (REF) | payer MEDICARE, MEDICAID ==
[2018-09-15 09:38] LABS: EOS % 1.4 % (0.0-3.0); HEMATOCRIT 36.9 % (36.0-47.0); HEMOGLOBIN 12.1 g/dl (12.0-15.5); LYMPH # 0.7 10^3/uL (1.5-4.5); MEAN CORPUSCULAR HEMOGLOBIN 31.8 pg (27.0-33.0); MEAN CORPUSCULAR HGB CONC 32.8 g/dl (32.0-36.5); MEAN CORPUSCULAR VOLUME 96.9 fl (80.0-96.0); MONO # 0.3 10^3/uL (0.0-0.8); MONO % 9.6 % (0.0-5.0); NEUTROPHILS # 1.9 10^3/uL (1.8-7.7); NEUTROPHILS % 63.3 % (36.0-66.0); PLATELET COUNT, AUTOMATED 237 10^3/uL (150-450); RED BLOOD COUNT 3.81 10^6/uL (4.00-5.40); WHITE BLOOD COUNT 2.9 10^3/uL (4.0-10.0)
[2018-09-15 10:43] LABS: BILIRUBIN,TOTAL 0.5 MG/DL (0.2-1.0); CALCIUM LEVEL 8.5 MG/DL (8.8-10.2); CREATININE FOR GFR 1.39 MG/DL (0.55-1.30); GLOMERULAR FILTRATION RATE 38.8 (>32); POTASSIUM SERUM 4.3 MEQ/L (3.5-5.1); TOTAL PROTEIN 6.6 GM/DL (6.4-8.2)
== END ==
DX: Z85.3 Personal history of malignant neoplasm of breast (principal)

== ENCOUNTER → 2018-09-22 | Outpatient (REF) | payer MEDICARE, MEDICAID ==
[2018-09-22 13:03] LABS: HEMATOCRIT 37.9 % (36.0-47.0); HEMOGLOBIN 12.7 g/dl (12.0-15.5); MEAN CORPUSCULAR HEMOGLOBIN 32.2 pg (27.0-33.0); MEAN CORPUSCULAR HGB CONC 33.5 g/dl (32.0-36.5); MEAN CORPUSCULAR VOLUME 95.9 fl (80.0-96.0); PLATELET COUNT, AUTOMATED 183 10^3/uL (150-450); RED BLOOD COUNT 3.95 10^6/uL (4.00-5.40); WHITE BLOOD COUNT 3.4 10^3/uL (4.0-10.0)
[2018-09-22 13:25] LABS: ALBUMIN 3.1 GM/DL (3.2-5.2); ALT/SGPT 24 U/L (12-78); BILIRUBIN,DIRECT < 0.1 MG/DL (0.0-0.2); BILIRUBIN,TOTAL 0.2 MG/DL (0.2-1.0); BLOOD UREA NITROGEN 24 MG/DL (7-18); CARBON DIOXIDE LEVEL 28 MEQ/L (21-32); CHLORIDE LEVEL 106 MEQ/L (98-107); CREATININE FOR GFR 1.42 MG/DL (0.55-1.30); GLOMERULAR FILTRATION RATE 37.9 (>32); GLUCOSE, FASTING 144 MG/DL (70-100); POTASSIUM SERUM 4.6 MEQ/L (3.5-5.1); SODIUM LEVEL 143 MEQ/L (136-145); TOTAL PROTEIN 6.9 GM/DL (6.4-8.2)
--- NOTE | 2018-09-22 17:02 | REP ---
Single view chest x-ray: History: Cough. Portable chest. Comparison study February 17, 2017. Findings: The patient is rotated slightly to the left. The lungs are symmetrically aerated and no infiltrate is seen. The pleural angles are sharp. Heart size is borderline unchanged. Pulmonary vasculature is not increased. No significant bony abnormality. Impression: No acute disease seen. Electronically Signed by Timothy Olson MD 09/22/2018 07:25 P
== END ==
DX: R05 Cough (principal)

== ENCOUNTER → 2018-09-29 | Outpatient (CLI) | payer MEDICARE, MEDICAID ==
[~2018-09-29] MED LIST changes: +AMLO10TA5 PO; +APAP325T4 PO; +ASPE4PAD TOP; +CEPH500C PO; +DULO60CA35 PO; +FLON1SPR; +HUMA100I5 SC; +MELATAB3 PO; +MILKSUS3 PO; +MYLASSUD PO; +ONDA8TAB10 PO; +PROC25SU24 PR; +RANI150T14 PO; +ZOFR8TAB24 PO
--- NOTE | 2018-09-29 14:13 | REP ---
PET/CT: HISTORY: Restaging right breast carcinoma. COMPARISONS: Comparison PET/CT July 01, 2018. TECHNIQUE: 45 minutes following the intravenous injection of a 8.53 mCi dose of F-18 FDG, three-dimensional PET scintigraphy is acquired from the skull base to the proximal thighs. Triplanar noncontrast CT scanning is acquired through the same anatomic range for attenuation correction, and image registration with scan parameters optimized to minimize radiation exposure to the patient. PET scintigraphy and CT datasets were fused and displayed on a workstation with multiplanar and projection display capability. PET/CT FINDINGS: There is significant improvement in the PET scintigraphy images. The previously noted hypermetabolic focus in the liver is no longer apparent. Hypermetabolic activity persists just beneath the right nipple in the right breast. Maximum standard uptake value here is 3.64. No other hypermetabolic uptake is seen within the breast tube. The previously noted hypermetabolic adenopathy has resolved. No hypermetabolic madi uptake is seen in the right axilla. There is a healing right posterior rib fracture involving the posterior segment of the right 4th rib. Previous study showed hypermetabolic uptake here. No lytic lesion is seen. There is sclerosis involving the right pedicle in the lower thoracic spine at T12 level. Maximum standard uptake value here is 3.19. Previously maximum SUV was 3.49. There is slightly increased uptake in the previously noted right sacral lesion. Maximum standard uptake value 2.89. Previously 8.57. No abnormal uptake is seen in the left proximal humeral area. No new hypermetabolic skeletal uptake site is seen. No other abnormal uptake is seen in the thorax. Head and neck soft tissues are unremarkable. IMPRESSION: Substantial improvement noted in right breast, axillary madi, and skeletal sites. Electronically Signed by Timothy Olson MD 09/29/2018 03:03 P
== END ==
LOC: M PLARAD 10:06
PROVIDERS: ATTEND Internal Medicine Medical Oncology
DX: C50.811 Malignant neoplasm of overlapping sites of right female breast (principal)
CPT/HCPCS: 78815; A9552

== ENCOUNTER → 2018-09-30 | Outpatient (REF) | payer MEDICARE, MEDICAID ==
[~2018-09-30] MED LIST changes: -AMLO10TA5 PO; -APAP325T4 PO; -ASPE4PAD TOP; -CEPH500C PO; -DULO60CA35 PO; -FLON1SPR; -HUMA100I5 SC; -MELATAB3 PO; -MILKSUS3 PO; -MYLASSUD PO; -ONDA8TAB10 PO; -PROC25SU24 PR; -RANI150T14 PO; -ZOFR8TAB24 PO
[2018-09-30 10:12] LABS: BASO % 1.7 % (0.0-1.0); EOS % 1.7 % (0.0-3.0); HEMATOCRIT 34.2 % (36.0-47.0); HEMOGLOBIN 11.4 g/dl (12.0-15.5); LYMPH # 0.7 10^3/uL (1.5-4.5); LYMPH % 28.3 % (24.0-44.0); MEAN CORPUSCULAR HEMOGLOBIN 31.7 pg (27.0-33.0); MEAN CORPUSCULAR HGB CONC 33.3 g/dl (32.0-36.5); MONO # 0.3 10^3/uL (0.0-0.8); MONO % 14.6 % (0.0-5.0); NEUTROPHILS # 1.2 10^3/uL (1.8-7.7); PLATELET COUNT, AUTOMATED 168 10^3/uL (150-450); WHITE BLOOD COUNT 2.3 10^3/uL (4.0-10.0)
[2018-09-30 10:36] LABS: ALBUMIN 2.9 GM/DL (3.2-5.2); BILIRUBIN,TOTAL 0.3 MG/DL (0.2-1.0); CALCIUM LEVEL 8.6 MG/DL (8.8-10.2); CREATININE FOR GFR 1.55 MG/DL (0.55-1.30); GLOMERULAR FILTRATION RATE 34.2 (>32); POTASSIUM SERUM 4.5 MEQ/L (3.5-5.1); TOTAL PROTEIN 6.5 GM/DL (6.4-8.2)
== END ==
DX: C50.119 Malignant neoplasm of central portion of unspecified female breast (principal)

== ENCOUNTER → 2018-11-03 | Outpatient (REF) | payer MEDICARE, MEDICAID ==
[2018-11-03 08:44] LABS: BASO % 1.4 % (0.0-1.0); EOS # 0.1 10^3/uL (0.0-0.50); HEMATOCRIT 34.4 % (36.0-47.0); HEMOGLOBIN 11.4 g/dl (12.0-15.5); LYMPH # 0.6 10^3/uL (1.5-4.5); LYMPH % 20.1 % (24.0-44.0); MEAN CORPUSCULAR HEMOGLOBIN 33.1 pg (27.0-33.0); MEAN CORPUSCULAR HGB CONC 33.1 g/dl (32.0-36.5); MONO # 0.4 10^3/uL (0.0-0.8); NEUTROPHILS # 1.8 10^3/uL (1.8-7.7); NEUTROPHILS % 60.8 % (36.0-66.0); PLATELET COUNT, AUTOMATED 181 10^3/uL (150-450); RED BLOOD COUNT 3.44 10^6/uL (4.00-5.40); WHITE BLOOD COUNT 2.9 10^3/uL (4.0-10.0)
[2018-11-03 09:11] LABS: ALBUMIN 2.9 GM/DL (3.2-5.2); BILIRUBIN,TOTAL 0.3 MG/DL (0.2-1.0); CALCIUM LEVEL 8.7 MG/DL (8.8-10.2); CREATININE FOR GFR 1.4 MG/DL (0.55-1.30); GLOMERULAR FILTRATION RATE 38.5 (>32); POTASSIUM SERUM 4.3 MEQ/L (3.5-5.1); TOTAL PROTEIN 6.2 GM/DL (6.4-8.2)
== END ==
DX: C50.919 Malignant neoplasm of unspecified site of unspecified female breast (principal)

== ENCOUNTER → 2018-11-09 | Outpatient (REF) | payer MEDICARE, MEDICAID ==
[~2018-11-09] MED LIST changes: +AMLO10TA5 PO; +APAP325T4 PO; +ASPE4PAD TOP; +DULO60CA35 PO; +FLON1SPR; +HUMA100I5 SC; +MELATAB3 PO; +MILKSUS3 PO; +MYLASSUD PO; +ONDA8TAB7 PO; +PROC25SU24 PR; +RANI150T14 PO; +ZOFR8TAB24 PO
[2018-11-09 16:00] LABS: BASO % 0.6 % (0.0-1.0); HEMATOCRIT 34.9 % (36.0-47.0); HEMOGLOBIN 11.5 g/dl (12.0-15.5); LYMPH # 0.6 10^3/uL (1.5-4.5); LYMPH % 8.5 % (24.0-44.0); MEAN CORPUSCULAR HEMOGLOBIN 32.6 pg (27.0-33.0); MEAN CORPUSCULAR VOLUME 98.9 fl (80.0-96.0); MONO # 0.5 10^3/uL (0.0-0.8); MONO % 7.9 % (0.0-5.0); NEUTROPHILS # 5.5 10^3/uL (1.8-7.7); NEUTROPHILS % 82.2 % (36.0-66.0); PLATELET COUNT, AUTOMATED 190 10^3/uL (150-450); RED BLOOD COUNT 3.53 10^6/uL (4.00-5.40); WHITE BLOOD COUNT 6.6 10^3/uL (4.0-10.0)
[2018-11-09 16:26] LABS: ALBUMIN 2.9 GM/DL (3.2-5.2); BILIRUBIN,DIRECT 0.1 MG/DL (0.0-0.2); BILIRUBIN,TOTAL 0.4 MG/DL (0.2-1.0); CALCIUM LEVEL 8.8 MG/DL (8.8-10.2); CREATININE FOR GFR 1.38 MG/DL (0.55-1.30); GLOMERULAR FILTRATION RATE 39.2 (>32); POTASSIUM SERUM 4.4 MEQ/L (3.5-5.1); TOTAL PROTEIN 6.5 GM/DL (6.4-8.2)
--- NOTE | 2018-11-09 19:31 | REP ---
CHEST, SINGLE VIEW: Single view of the chest is performed and compared to prior study of 09/22/2018. There is poor ventilation. There is mild elevation of the right hemidiaphragm. There is carotid lung markings with no definite acute infiltrate. Cardiomediastinal silhouette appears magnified. There is calcification and tortuosity of the thoracic aorta. Mediastinal silhouette is otherwise unremarkable. IMPRESSION: Poor ventilation. No definite acute infiltrate. Electronically Signed by Ruddy Howell MD 11/10/2018 11:44 P
== END ==
DX: R10.9 Unspecified abdominal pain (principal)

== ENCOUNTER → 2018-11-11 | Outpatient (REF) | payer MEDICARE, MEDICAID ==
[~2018-11-11] MED LIST changes: +CEPH500C PO; +ONDA8TAB10 PO; -ONDA8TAB7 PO
[2018-11-11 09:02] LABS: HEMATOCRIT 31.1 % (36.0-47.0); HEMOGLOBIN 10.3 g/dl (12.0-15.5); MEAN CORPUSCULAR HEMOGLOBIN 33.2 pg (27.0-33.0); MEAN CORPUSCULAR HGB CONC 33.1 g/dl (32.0-36.5); MEAN CORPUSCULAR VOLUME 100.3 fl (80.0-96.0); PLATELET COUNT, AUTOMATED 188 10^3/uL (150-450); WHITE BLOOD COUNT 3.7 10^3/uL (4.0-10.0)
[2018-11-11 09:25] LABS: CALCIUM LEVEL 8.1 MG/DL (8.8-10.2); CREATININE FOR GFR 1.51 MG/DL (0.55-1.30); GLOMERULAR FILTRATION RATE 35.3 (>32); POTASSIUM SERUM 4.3 MEQ/L (3.5-5.1)
[2018-11-11 09:34] LABS: EOSINOPHILS 2 % (0-3); LYMPHOCYTES 24 % (16-44); MONOCYTES 6 % (0-5); NEUTROPHILS 68 % (28-66); PLATELET ESTIMATE NORMAL (NORMAL)
== END ==
PROVIDERS: ATTEND Physician Assistant
DX: D64.9 Anemia, unspecified (principal)

== ENCOUNTER 2018-11-17 11:09 | Inpatient (IN) | payer MEDICARE, MEDICAID ==
[~2018-11-17] VITALS: Ht 157.5 cm; Wt 80.8 kg
[~2018-11-17 11:09] MED LIST changes: -AMLO10TA5 PO; -APAP325T4 PO; -ASPE4PAD TOP; -CEPH500C PO; -DULO60CA35 PO; -FLON1SPR; -HUMA100I5 SC; -MELATAB3 PO; -MILKSUS3 PO; -MYLASSUD PO; -ONDA8TAB10 PO; -PROC25SU24 PR; -RANI150T14 PO; -ZOFR8TAB24 PO
[2018-11-17 11:52] LABS: HEMOGLOBIN 11.8 g/dl (12.0-15.5); MEAN CORPUSCULAR HEMOGLOBIN 34.1 pg (27.0-33.0); MEAN CORPUSCULAR HGB CONC 33.7 g/dl (32.0-36.5); MEAN CORPUSCULAR VOLUME 101.2 fl (80.0-96.0); PLATELET COUNT, AUTOMATED 117 10^3/uL (150-450); RED BLOOD COUNT 3.46 10^6/uL (4.00-5.40); WHITE BLOOD COUNT 4.7 10^3/uL (4.0-10.0)
[2018-11-17] MEDS ORDERED: ONDA8TAB10 PO (12:28)
[2018-11-17] MEDS ORDERED: HUMA100I5 SC (12:28)
[2018-11-17] MEDS ORDERED: FLON1SPR (12:28)
[2018-11-17] MEDS ORDERED: AMLO10TA5 PO (12:28)
[2018-11-17] MEDS ORDERED: ZOFR8TAB24 PO (12:28)
[2018-11-17] MEDS ORDERED: MELATAB3 PO (12:28)
[2018-11-17] MEDS ORDERED: MILKSUS3 PO (12:28)
[2018-11-17] MEDS ORDERED: APAP325T4 PO (12:28)
[2018-11-17] MEDS ORDERED: MYLASSUD PO (12:28)
[2018-11-17] MEDS ORDERED: RANI150T14 PO (12:28)
[2018-11-17] MEDS ORDERED: DULO60CA35 PO (12:28)
[2018-11-17] MEDS ORDERED: ASPE4PAD TOP (12:28)
[2018-11-17] MEDS ORDERED: PROC25SU24 PR (12:28)
[2018-11-17 12:31] LABS: ALBUMIN 2.6 GM/DL (3.2-5.2); ALT/SGPT 20 U/L (12-78); BILIRUBIN,DIRECT 0.4 MG/DL (0.0-0.2); BILIRUBIN,TOTAL 0.9 MG/DL (0.2-1.0); BLOOD UREA NITROGEN 37 MG/DL (7-18); CALCIUM LEVEL 9.3 MG/DL (8.8-10.2); CARBON DIOXIDE LEVEL 27 MEQ/L (21-32); CHLORIDE LEVEL 104 MEQ/L (98-107); CK-MB VALUE MASS < 1.0 NG/ML (<3.6); CPK CREATINE PHOSPHOKINASE 383 U/L (26-192); GLOMERULAR FILTRATION RATE 18.9 (>32); GLUCOSE, FASTING 257 MG/DL (70-100); MB/CK RELATIVE INDEX 0.26 (< OR =4); POTASSIUM SERUM 4.4 MEQ/L (3.5-5.1); SODIUM LEVEL 138 MEQ/L (136-145); THYROID STIMULATING HORMONE 0.484 uIU/ML (0.358-3.740); TOTAL PROTEIN 7.4 GM/DL (6.4-8.2); TROPONIN I 0.19 NG/ML (< 0.10)
[2018-11-17 12:32] LABS: ANISOCYTOSIS 1+; ATYPICAL LYMPH 2 % (0-5); LYMPHOCYTES 4 % (16-44); MONOCYTES 4 % (0-5); NEUTROPHILS 78 % (28-66); PLATELET ESTIMATE DECREASED (NORMAL)
[2018-11-17 12:33] LABS: DOHLE BODIES 1+
--- NOTE | 2018-11-17 12:37 | REP ---
Clinical: Fever. Technique: AP and cross-table lateral views of the chest. Comparison: 11/09/2018. Findings: Stable cardiomegaly and diffuse chronic interstitial changes are appreciated. Subtle superimposed atelectasis cannot be excluded. No definite effusion. No pneumothorax. Skeletal structures stable. Impression: Chronic stable changes. Cannot exclude subtle superimposed atelectasis. Electronically Signed by Louis Mayorga MD 11/17/2018 12:29 P
[2018-11-17] MEDS ORDERED: ACETAMINOPHEN 650 MG SUPP PR ONE (13:30)
[2018-11-17] MEDS ORDERED: PIPERACILLIN/TAZOBACTAM SOD 3.375 GM in D5W MINI-BAG PLUS 50 ML IV ONE (13:30)
[2018-11-17] MEDS ORDERED: NS 1,000 ML IV ONE ×2 (13:30→14:30)
[2018-11-17] MEDS ORDERED: ONDANSETRON 4 MG TAB (S0181) PO PRN (14:45)
[2018-11-17] MEDS ORDERED: GLUCAGON FOR INJ 1 MG VIAL (J1610) SC PRN (14:45)
[2018-11-17] MEDS ORDERED: LIDOCAINE 4% CREAM 5GM (LMX4) TOP PRN (14:45)
[2018-11-17] MEDS ORDERED: PROCHLORPERAZINE 25 MG SUPP PR PRN (14:45)
[2018-11-17] MEDS ORDERED: GLUCOSE 4 GM CHEW TABLET PO PRN (14:45)
[2018-11-17] MEDS ORDERED: CALCIUM CARBONATE 500 MG CHEW U/D PO PRN (14:45)
[2018-11-17] MEDS ORDERED: DEXTROSE 50% 50 ML SYRINGE IV PRN (14:45)
[2018-11-17] MEDS ORDERED: BISACODYL 10 MG SUPP PR PRN (14:45)
--- NOTE | 2018-11-17 15:09 | HPEPDOC ---
[facility] Medical History & Physical Date of Admission Nov 17, 2018 Date of Service: Nov 17, 2018 History and Physical CHIEF COMPLAINT: Patient sent to the emergency room for lethargy HISTORY OF PRESENT ILLNESS: This is a 78-year-old female who had is wheelchair bound since a stroke several years ago. She has a history of recurrent urinary tract infections she was seen by one of her sons yesterday felt the patient was not herself and doing unwell as she has in the past prior to the onset of a urinary tract infection. She was visited today by another son who agreed the nurse practitioner who evaluated the patient felt she was more lethargic and recommended presentation to the emergency room. As per the son the patient intermittently is oriented but has not been for the last 2 days she has been sleeping with her eyes closed and only opened her eyes for the first time today shortly after his arrival. Given the patient's advanced dementia much of the history is obtained from the son who is bedside documentation a providers and review of the medical record. Otherwise when asked specifically patient denies weight loss, hair loss, headache, visual changes, chest pain, shortness of breath, cough, nausea, vomiting, diarrhea, abdominal pain, muscle aches, worsening arthritis, change in mood PAST MEDICAL HISTORY: 1. Stage IV metastatic breast cancer. 2. Alzheimer's dementia . 3. 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 Gastroesophageal reflux disease 5. Diabetes 6. Hypertension 7. Mood disorder movement 8 chronic kidney disease 9 recurrent urinary tract infections. HOME MEDICATIONS: Please see below. ALLERGIES: Please see below PAST SURGICAL HISTORY: 1. Bladder surgery. SOCIAL HISTORY: Lives with: [facility], Employment: Retired, Tobacco use: Denies. ETOH: Denies, Illicit drug use: Denies, CODE STATUS: DNR/DNI FAMILY HISTORY:Reviewed and noncontributory REVIEW OF SYSTEMS: 10 systems reviewed and negative other than HPI PHYSICAL EXAMINATION: VITAL SIGNS: Temperature 104.9, pulse 1:15, respiratory rate 18, blood pressure 156/72, pulse oximetry 96 % on 2 L. GENERAL: Smiling obese elderly female laying flat in bed, she does not answer questions or follow commands eyes are open she tracks around the room turns to verbal stimuli does not appear to be in any acute distress HEENT: Very dry mucous membranes no elevation in CVP CARDIOVASCULAR: S1 S2 tachycardic no additional heart sounds appreciated. RESPIRATORY: Clear to auscultation bilaterally. ABDOMINAL: Bowel sounds present abdomen soft and nontender, obese EXTREMITIES: No clubbing cyanosis or edema NEUROLOGICAL: Does not cooperate with testing PSYCHOLOGICAL: Does not cooperate with testing LABORATORY DATA: See below. MICROBIOLOGY: Please see below. IMAGING: Chest x-ray:Chronic stable changes. Cannot exclude subtle superimposed atelectasis. ASSESSMENT & PLAN: This is a 78-year-old female with advanced dementia and stage IV breast cancer presenting with lethargy found to have urinary tract infection. PROBLEMS: 1. Urinary tract infection: Patient previous culture data she is also is susceptible to Zosyn which is been started in the emergency room. I will continue this up by with IV fluids as she does appear to be significantly dehydrated and appears to be the most likely aspiration for her change in cognitive status which I suspect is quite poor at baseline. I'll provide her with additional normal saline bolus as well as maintenance following this we will trend her lactic acid and blood work she does have elevated bandemia significant fever which we'll provide Tylenol for it admitted to progressive care unit for close monitoring. 2. Acute on chronic kidney injury: Baseline creatinine appears to be close to 1.5 she is certainly elevated at 2.6 today. She appears clinically quite dry we'll continue with hydration and recheck labs tomorrow morning. 3. Abnormal troponin: Likely demand ischemia related secondary to the severity of her acute presentation we'll monitor her on telemetry and trend her troponin 4. Diabetes: Sliding scale while hospitalized 5. Alzheimer's dementia: She is not alert enough to tolerate by by mouth at this time I will place a speech therapy swallow eval I discussed concerns about her ability to take in food while she is so cognitively impaired. 6. Stage IV metastatic breast cancer: We will hold chemotherapeutic agents while hospitalized she does have bone disease likely explaining her elevated alkaline phosphatase she had been responding well to chemotherapy in the outpatient setting continue outpatient follow-up when able. Continue with letrozole 7. Anemia: Likely related to chronic disease secondary to her malignancy 8. Thrombocytopenia: Mild full monitor closely while hospitalized possibly related to her chemotherapy 9. History of CVA: She has left-sided residual deficits and is wheelchair bound at her baseline continue with Plavix statin as well as BP control with holding parameters 10. Hypertension: Continue with Norvasc and metoprolol and lisinopril with holding parameters 11. Chronic constipation: Continue with bowel regimen DVT PROPHYLAXIS:Heparin twice a day DISPOSITION: Admitted to inpatient status PCU prognosis is guarded at this time. Lengthy conversation had with the patient's son bedside all questions answered to his satisfaction and he is aware of her guarded prognosis Vital Signs Vital Signs Date Time Temp Pulse Resp B/P (MAP) Pulse Ox O2 Delivery O2 Flow Rate FiO2 11/17/18 14:00 136/66 (89) 11/17/18 13:54 117 22 94 Nasal Cannula 2.0 11/17/18 13:30 103.0 Laboratory Data Labs 24H Laboratory Tests 2 11/17/18 11:27: White Blood Count 4.7, Red Blood Count 3.46L, Hemoglobin 11.8L, Hematocrit 35.0L, Mean Corpuscular Volume 101.2H, Mean Corpuscular Hemoglobin 34.1H, Mean Corpuscular Hemoglobin Concent 33.7, Red Cell Distribution Width 15.7H, Platelet Count 117L, Lymphocytes # (Auto) , Nucleated Red Blood Cells % (auto) 0.0, Neutrophils 78H, Band Neutrophils 12H, Lymphocytes (Manual) 4L, Monocytes (Manual) 4, Atypical Lymphocytes 2, Dohle Bodies 1+, Platelet Estimate DECREASED, Anisocytosis 1+, Macrocytosis 1+, Urine Color SUKH, Urine Appearance TURBIDH, Urine pH 5.0, Urine Specific [place] 1.012, Urine Protein 2+H, Urine Glucose (UA) NEGATIVE, Urine Ketones NEGATIVE, Urine Blood 1+H, Urine Nitrite NEGATIVE, Urine Bilirubin NEGATIVE, Urine Urobilinogen 0.2, Urine Leukocyte Esterase 3+H, Urine WBC (Auto) TNTCH, Urine RBC (Auto) 20H, Urine Hyaline Casts (Auto) 0, Urine Bacteria (Auto) 3+H, Urine Squamous Epithelial Cells 11, Urine Transitional Epithelial Cells 7, Urine Mucus (Auto) SMALL, Urine Sperm (Auto) , Anion Gap 7L, Glomerular Filtration Rate 18.9L, Lactic Acid Level 2.8*H, Calcium Level 9.3, Aspartate Amino Transf (AST/SGOT) 32, Alanine Aminotransferase (ALT/SGPT) 20, Alkaline Phosphatase 184H, Total Bilirubin 0.9, Direct Bilirubin 0.4H, Total Creatine Kinase 383H, Creatine Kinase MB < 1.0, Creatine Kinase MB Relative Index 0.26, Troponin I 0.19H, Total Protein 7.4, Albumin 2.6L, Albumin/Globulin Ratio 0.54L, Thyroid Stimulating Hormone (TSH) 0.484 CBC/BMP Laboratory Tests 11/17/18 11:27 Red Blood Count 3.46 L, Mean Corpuscular Volume 101.2 H, Mean Corpuscular Hemoglobin 34.1 H, Mean Corpuscular Hemoglobin Concent 33.7, Red Cell Distribution Width 15.7 H, Lymphocytes # (Auto) Microbiology Microbiology 11/17/18 Blood Culture, Received Pending 11/17/18 Blood Culture, Received Pending 11/17/18 Urine Culture, Received Pending Home Medications Scheduled Acetaminophen (Acetaminophen) 325 Mg Tablet, 650 MG PO TID Aluminum/Magnesium/Simeth (Mag-Al Plus Suspension) 30 Ml Oral.susp, 20 ML PO PC Amlodipine Besylate (Amlodipine Besylate) 10 Mg Tablet, 10 MG PO QPM Atorvastatin Calcium (Atorvastatin Calcium) 40 Mg Tab, 40 MG PO QPM Cholecalciferol (Vitamin D3) (Vitamin D3) 400 Unit Tab, 400 UNIT PO DAILY Clopidogrel Bisulfate (Plavix) 75 Mg Tab, 75 MG PO DAILY Docusate Sodium (Colace) 100 Mg Cap, 100 MG PO QPM Dulaglutide (Trulicity) 0.75 Mg/0.5 Ml Pen.injctr, 0.75 MG SC QWEEK FRIDAY EVENINGS Duloxetine HCl (Duloxetine HCl) 60 Mg Capsule.dr, 60 MG PO QPM Fluticasone Propionate (Flonase Allergy Relief) 9.9 Ml [place].susp, 1 SPRAY NA QHS Insulin Glargine,Hum.rec.anlog (Bridger [place]) 300 Unit/1 Ml Insuln.pen, 50 UNIT SC DAILY Insulin Lispro (Humalog Kwikpen U-100) 100 Unit/1 Ml Insuln.pen, 1 DOSE SC AC PER SLIDING SCALE Letrozole (Letrozole) 2.5 Mg Tablet, 2.5 MG PO DAILY Lidocaine (Aspercreme) 4% Adh..patch, 1 PATCH TOP DAILY APPLY TO POSTERIOR SHOULDER/SCAPULA Lisinopril (Lisinopril) 20 Mg Tab, 20 MG PO DAILY Melatonin (Melatonin) 5 Mg Tablet, 5 MG PO QHS Methyl Salicylate/Menthol (Bengay Greaseless Cream) 57 Gm Cream..g., 1 DOSE TOP TID APPLY SMALL AMOUNT TO LOWER BACK Metoprolol Tartrate (Lopressor) 50 Mg Tab, 50 MG PO BID Ondansetron HCl (Ondansetron HCl) 8 Mg Tablet, 8 MG PO BID Palbociclib (Ibrance) 100 Mg Capsule, 100 MG PO DAILY STARTED ON 11/03/18 FOR 21 DAYS Ranitidine HCl (Ranitidine HCl) 150 Mg Tablet, 1 TAB PO BID Vit C/E/Zn/Coppr/Lutein/Zeaxan (Preservision Areds 2 Softgel) 1 Each Capsule, 1 CAP PO BID Scheduled PRN Bisacodyl (Bisacodyl) 10 Mg Sup, 10 MG [place] DAILY PRN for CONSTIPATION Calcium Carbonate (Tums) 500 Mg Chw, 1,000 MG PO Q4H PRN for HEARTBURN Magnesium Hydroxide (Milk of Magnesia) 400 Mg/5 Ml Oral.susp, 30 M PO DAILY PRN for CONSTIPATION Ondansetron HCl (Zofran) 8 Mg Tablet, 8 MG PO DAILY PRN for NAUSEA Prochlorperazine (Prochlorperazine) 25 Mg Supp.rect, 25 MG [place] Q12H PRN for NAUSEA Sodium Phosphate,Donley-Dibasic (Enema Kvxff-Jh-Xqt) 1 Aneudy Aneudy, 1 ANEUDY [place] DAILY PRN for CONSTIPATION Allergies Coded Allergies: No Known Allergies (Verified , 07/24/11) A-FIB/CHADSVASC A-FIB History Current/History of A-Fib/PAF?: No FELIZ BROUSSARD MD Nov 17, 2018 15:09
[2018-11-17 16:00] VITALS: BP 113/57
[2018-11-17] MEDS: LETROZOLE 2.5 MG TAB PO SCH (16:53)
[2018-11-17] MEDS: VITAMIN D (CHOLECALCIFEROL) 400 INTERNATIONAL UNITS TAB PO SCH (16:54)
[2018-11-17] MEDS: CLOPIDOGREL 75 MG TAB PO SCH (16:54)
[2018-11-17] MEDS: lisinopriL 20 MG TAB PO SCH (16:54)
[2018-11-17] MEDS: NS 1,000 ML IV SCH (16:55)
[2018-11-17] MEDS: MAALOX 30 ML SUSP *UDC PO SCH (16:55)
[2018-11-17] MEDS ORDERED: HumaLOG INSULIN (NovoLOG) PER UNIT SC SCH ×2 (17:30→21:00)
[2018-11-17] MEDS: LIDOCAINE 5% (LIDODERM) PATCH TD SCH (17:55)
[2018-11-17 20:00] VITALS: BP 118/57
[2018-11-17] MEDS ORDERED: PIPERACILLIN/TAZOBACTAM SOD 3.375 GM in D5W MINI-BAG PLUS 50 ML IV SCH (20:00)
[2018-11-17] MEDS: ONDANSETRON 4 MG TAB (S0181) PO SCH (21:00)
[2018-11-17] MEDS: ACETAMINOPHEN TAB 650MG DOSE (2X325MG) PO SCH (21:00)
[2018-11-17] MEDS: DOCUSATE SODIUM 100 MG CAP PO SCH (21:00)
[2018-11-17] MEDS: DULoxetine 30 MG CAP (CYMBALTA) PO SCH (21:00)
[2018-11-17] MEDS: ATORVASTATIN 20 MG TAB PO SCH (21:00)
[2018-11-17] MEDS ORDERED: HEPARIN SOD (PORCINE) 5000 UNITS/ML VIAL SC SCH (21:00)
[2018-11-17] MEDS: PIPERACILLIN/TAZOBACTAM SOD 2.25 GM in D5W MINI-BAG PLUS 50 ML IV SCH (21:00)
[2018-11-17] MEDS: amLODIPine 10 MG TAB PO SCH (21:00)
[2018-11-17] MEDS: METOPROLOL TART 50 MG TAB PO SCH (21:00)
[2018-11-17] MEDS: FLUTICASONE PROP 0.05% NASAL SPRAY 16 GM (FLONASE) SCH (21:40)
[2018-11-17 23:59] VITALS: BP 139/74
[2018-11-18 04:00] VITALS: BP 137/64
[2018-11-18] MEDS: NS 1,000 ML IV SCH ×4 (04:38→22:08)
[2018-11-18] MEDS: PIPERACILLIN/TAZOBACTAM SOD 2.25 GM in D5W MINI-BAG PLUS 50 ML IV SCH ×3 (04:38→21:28)
[2018-11-18 07:01] LABS: HEMATOCRIT 28.8 % (36.0-47.0); MEAN CORPUSCULAR HGB CONC 33.3 g/dl (32.0-36.5); MEAN CORPUSCULAR VOLUME 102.1 fl (80.0-96.0); RED BLOOD COUNT 2.82 10^6/uL (4.00-5.40)
[2018-11-18 07:04] LABS: HEMOGLOBIN 9.6 g/dl (12.0-15.5)
[2018-11-18 07:05] LABS: PLATELET COUNT, AUTOMATED 82 10^3/uL (150-450)
--- NOTE | 2018-11-18 07:18 | IPNPDOC ---
Text Note Date of Service The patient was seen on 11/18/18. NOTE HISTORY OF PRESENT ILLNESS: This is a 78 yo female [facility] resident wheelchair bound d/t stroke several years ago w/ PMH of recurrent UTI presented to [facility] with change in mental status. Son at bedside reported he was contacted by the [facility] nursing staff and was reported it was a mechanical fall and she did not hit any part of her body. It was noted that she was seen by one of her sons yesterday and noted that pt was not at baseline. Son at bedside reported pt intermittently is oriented X3, but he feels the mental status decline is gradual. It was noted that for 2 days prior to admission pt had been sleeping with her eyes closed and only opened her eyes for the first time today shortly after his arrival. Pt is minimally responsive to questions but can follow some commands. It was noted that pt has been having some coughing with oral secretions. No fever, chills, N/V was noted. Pt indicated abdominal pain but further info unable to be obtained d/t mental status. ROS limited as pt minimally responsive. ROS: Limited ROS able to be obtained d/t pt's mental status. GI: pos for abd pain PHYSICAL EXAMINATION: GENERAL:Somnolent obese elderly female laying in bed but arousable. Minimally answering questions; follow some commands. Does not appear to be in acute distress HEENT: dry mucous membranes CARDIOVASCULAR: Tachycardic, regular rhythm, no murmur, normal S1 and S2 RESPIRATORY: Clear to auscultation bilaterally. No rales, wheezing, or rhonchi ABDOMINAL: Bowel sounds present in all quad, mildly hypoactive, abdomen soft and nontender, obese. No guarding or distention EXTREMITIES: No clubbing cyanosis or edema NEUROLOGICAL: Alert. Not able to answer any questions except for "yes" for abd pain. Follows commands to move right hand only, strength +3/5 on hand IMAGING: Chest x-ray:Chronic stable changes. Cannot exclude subtle superimposed atelectasis. Assessment and Plan: 1. Urinary tract infection: Patient previous culture data she is also is susceptible to Zosyn which is been started in the emergency room. I will continue this up by with IV fluids as she does appear to be significantly dehydrated and appears to be the most likely aspiration for her change in cognitive status which I suspect is quite poor at baseline. I'll provide her with additional normal saline bolus as well as maintenance following this we will trend her lactic acid and blood work she does have elevated bandemia significant fever which we'll provide Tylenol for it admitted to progressive care unit for close monitoring. 2. Bacteremia with gram neg letty in blood cxX1; other blood cx pending. Vital signs roughly stable. Pt has baseline dementia thus difficult to determine if acute change of mental status. Lactic acid trending down. A new set of blood cx pending. 2. Acute on chronic kidney injury: Baseline creatinine appears to be close to 1.5 . Down from 2.6 to 2.46 today. Pt's mucous membrane appears dry. Increase IVF to 150ml/hr 3. Elevated troponin: Likely demand ischemia related secondary to the severity of her acute presentation. Trop mildly elevated but down trending. Cont tele 4. Diabetes: Sliding scale while hospitalized as pt currently NPO. Possibly switching to 1:1 vs starting glargline. 5. Alzheimer's dementia: She is not alert enough to tolerate by by mouth at this time. Speech eval pending; NPO now. Oral care ordered. 6. Stage IV metastatic breast cancer: We will hold chemotherapeutic agents while hospitalized. Pt does have bone disease likely explaining her elevated alkaline phosphatase ; pt may resume Ibranae outpatient when stable. Continue with letrozole 7. Anemia: Likely related to chronic disease secondary to her malignancy vs chemo. Pt on Letrozole and Ibrance daily outpt; hold Ibrance during hospitalization 8. Thrombocytopenia: Mild full monitor closely while hospitalized possibly related to her chemotherapy. Immature platelet fx wnl. Hold heparin for now. 9. History of CVA: She has left-sided residual deficits and is wheelchair bound at her baseline. Continue with Plavix, statin, and BP control with holding vishal eters. Will order PT when pt more alert 10. Hypertension: Continue with Norvasc, metoprolol, and lisinopril with holding parameters 11. Chronic constipation: Continue with bowel regimen I saw and evaluated the patient. I agree with the findings and plan of care as documented in the above note VS,[place], I+O VS, Fishbone, I+O Laboratory Tests 11/17/18 11:27 Red Blood Count 3.46 L, Mean Corpuscular Volume 101.2 H, Mean Corpuscular Hemoglobin 34.1 H, Mean Corpuscular Hemoglobin Concent 33.7, Red Cell Distribution Width 15.7 H, Lymphocytes # (Auto) 11/18/18 06:40 Red Blood Count 2.82 L, Mean Corpuscular Volume 102.1 H, Mean Corpuscular Hemoglobin 34.0 H, Mean Corpuscular Hemoglobin Concent 33.3, Red Cell Distribution Width 16.0 H Vital Signs Date Time Temp Pulse Resp B/P (MAP) Pulse Ox O2 Delivery O2 Flow Rate FiO2 11/18/18 04:00 97.5 116 18 137/64 (88) 94 2.0 11/17/18 13:54 Nasal Cannula I&O- Last 24 Hours up to 6 AM 11/18/18 06:00 Intake Total 2350 ml Output Total 10 ml Balance 2340 ml ALICIA VILLANUEVA DO Nov 18, 2018 07:18 FELIZ BROUSSARD MD Nov 21, 2018 10:33
[2018-11-18 07:43] LABS: CALCIUM LEVEL 8.4 MG/DL (8.8-10.2); CREATININE FOR GFR 2.46 MG/DL (0.55-1.30); GLOMERULAR FILTRATION RATE 20.1 (>32); POTASSIUM SERUM 4.1 MEQ/L (3.5-5.1); TROPONIN I 0.18 NG/ML (< 0.10)
[2018-11-18 08:00] VITALS: BP 139/63
[2018-11-18] MEDS: HumaLOG INSULIN (NovoLOG) PER UNIT SC SCH ×3 (08:25→17:28)
[2018-11-18] MEDS: MAALOX 30 ML SUSP *UDC PO SCH ×3 (08:30→17:03)
[2018-11-18] MEDS: LETROZOLE 2.5 MG TAB PO SCH (09:00)
[2018-11-18] MEDS: VITAMIN D (CHOLECALCIFEROL) 400 INTERNATIONAL UNITS TAB PO SCH (09:00)
[2018-11-18] MEDS: CLOPIDOGREL 75 MG TAB PO SCH (09:00)
[2018-11-18] MEDS: lisinopriL 20 MG TAB PO SCH (09:00)
[2018-11-18] MEDS: METOPROLOL TART 50 MG TAB PO SCH ×2 (09:00→21:00)
[2018-11-18] MEDS: FOLIC ACID 1 MG TAB PO SCH (09:00)
[2018-11-18] MEDS: CYANOCOBALAMIN 500 MCG TAB PO SCH (09:00)
[2018-11-18] MEDS: ONDANSETRON 4 MG TAB (S0181) PO SCH ×2 (09:00→20:59)
[2018-11-18] MEDS: LIDOCAINE 5% (LIDODERM) PATCH TD SCH (09:00)
[2018-11-18] MEDS: ACETAMINOPHEN TAB 650MG DOSE (2X325MG) PO SCH ×3 (09:00→21:00)
[2018-11-18] MEDS ORDERED: CYANOCOBALAMIN 1,000 MCG/ML VIAL (J3420) IM ONE (10:00)
[2018-11-18] MEDS ORDERED: FOLIC ACID 1 MG in NS 50 ML IV ONE (10:00)
[2018-11-18 10:12] LABS: INR 1.27; PROTHROMBIN TIME 15.6 SECONDS (11.8-14.0)
[2018-11-18 10:13] LABS: PARTIAL THROMBOPLASTIN TIME 38.8 SECONDS (25.0-38.4)
[2018-11-18 12:00] VITALS: BP 166/74
[2018-11-18 16:00] VITALS: BP 144/68
--- NOTE | 2018-11-18 16:53 | ECGEPIP ---
[facility] - ED Test Date: 2018-11-17 Pat Name: FELICE SPENCER Department: Room: - Gender: Female Special Service Officer: sushila : 1940 Requested By: RACHELLE Delgado Order Number: [id number] Reading MD: Angy Dumont Measurements Intervals [place] Rate: 126 P: 69 MT: 131 QRS: 13 QRSD: 71 T: 66 QT: 300 QTc: 436 Interpretive Statements SINUS TACHYCARDIA ABNORMAL RHYTHM ECG NSTTW abnormalities Electronically Signed on 11-18-2018 16:53:45 EDT by Angy Dumont
[2018-11-18 20:00] VITALS: BP 170/78
--- NOTE | 2018-11-18 20:39 | ECGEPIP ---
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
[2018-11-18] MEDS ORDERED: ACETAMINOPHEN 650 MG SUPP PR PRN (20:45)
[2018-11-18] MEDS: DULoxetine 30 MG CAP (CYMBALTA) PO SCH (20:58)
[2018-11-18] MEDS: DOCUSATE SODIUM 100 MG CAP PO SCH (20:58)
[2018-11-18] MEDS: amLODIPine 10 MG TAB PO SCH (21:00)
[2018-11-18] MEDS: ATORVASTATIN 20 MG TAB PO SCH (21:00)
[2018-11-18] MEDS: FLUTICASONE PROP 0.05% NASAL SPRAY 16 GM (FLONASE) SCH (21:27)
[2018-11-18 23:59] VITALS: BP 142/67
[2018-11-19] VITALS (16 sets, daily range): BP systolic 135–224; BP diastolic 65–98; O2SAT 90–99
[2018-11-19] MEDS: PIPERACILLIN/TAZOBACTAM SOD 2.25 GM in D5W MINI-BAG PLUS 50 ML IV SCH ×3 (05:33→21:44)
[2018-11-19] MEDS: NS 1,000 ML IV SCH (05:34)
[2018-11-19] MEDS: HumaLOG INSULIN (NovoLOG) PER UNIT SC SCH ×4 (06:00→18:24)
[2018-11-19 06:03] LABS: HEMATOCRIT 30.5 % (36.0-47.0); HEMOGLOBIN 9.7 g/dl (12.0-15.5); MEAN CORPUSCULAR HEMOGLOBIN 33.6 pg (27.0-33.0); MEAN CORPUSCULAR HGB CONC 31.8 g/dl (32.0-36.5); MEAN CORPUSCULAR VOLUME 105.5 fl (80.0-96.0); RED BLOOD COUNT 2.89 10^6/uL (4.00-5.40)
[2018-11-19 06:05] LABS: PLATELET COUNT, AUTOMATED 78 10^3/uL (150-450)
[2018-11-19 06:06] LABS: CALCIUM LEVEL 8.6 MG/DL (8.8-10.2); CREATININE FOR GFR 1.74 MG/DL (0.55-1.30)
[2018-11-19] MEDS ORDERED: LR 1,000 ML IV SCH (07:15)
[2018-11-19] MEDS: MAALOX 30 ML SUSP *UDC PO SCH ×3 (08:30→18:22)
--- NOTE | 2018-11-19 08:39 | REP ---
Clinical: Altered mental status. Comparison: 02/17/2017 . Findings: Atrophy with periventricular leukomalacia and microvascular ischemic changes are appreciated. The ventricles and sulci are symmetric. Howell-white differentiation is maintained. There is no evidence for acute intracranial hemorrhage, mass/mass effect, pathology or infarction. No extra-axial fluid collection. Calvarium is intact. Paranasal sinuses and mastoid air cells are clear. Impression: Age related atrophy and microvascular ischemic changes. No acute intracranial hemorrhage, infarction, or mass/mass effect. Electronically Signed by Louis Mayorga MD 11/19/2018 08:30 A
[2018-11-19] MEDS: LETROZOLE 2.5 MG TAB PO SCH (09:00)
[2018-11-19] MEDS: VITAMIN D (CHOLECALCIFEROL) 400 INTERNATIONAL UNITS TAB PO SCH (09:00)
[2018-11-19] MEDS: LIDOCAINE 5% (LIDODERM) PATCH TD SCH (09:00)
[2018-11-19] MEDS: ONDANSETRON 4 MG TAB (S0181) PO SCH ×2 (09:00→21:42)
[2018-11-19] MEDS: lisinopriL 20 MG TAB PO SCH (09:00)
[2018-11-19] MEDS: FOLIC ACID 1 MG TAB PO SCH (09:00)
[2018-11-19] MEDS: ACETAMINOPHEN TAB 650MG DOSE (2X325MG) PO SCH ×3 (09:00→21:42)
[2018-11-19] MEDS: METOPROLOL TART 50 MG TAB PO SCH ×2 (09:00→17:56)
[2018-11-19] MEDS: CYANOCOBALAMIN 500 MCG TAB PO SCH (09:00)
[2018-11-19] MEDS: CLOPIDOGREL 75 MG TAB PO SCH (09:00)
--- NOTE | 2018-11-19 09:47 | REP ---
Bilateral lower extremity Duplex Doppler venous ultrasound: Real time compression and duplex Doppler interrogation of the bilateral lower extremity deep venous system is performed. Bilaterally, the common femoral, superficial femoral and popliteal veins are fully compressible with transducer pressure and demonstrate normal spontaneous and phasic flow, without evidence of deep venous thrombosis. Impression: No evidence of deep venous thrombosis of the bilateral lower extremity femoral popliteal venous system. Electronically Signed by Ruddy Howell MD 11/19/2018 09:38 A
--- NOTE | 2018-11-19 14:06 | REP ---
MRI BRAIN WITHOUT CONTRAST: HISTORY: Altered mental status. Left-sided weakness. Comparison MRI study February 17, 2017. Comparison CT study is from November 19, 2018. TECHNIQUE: Axial and sagittal imaging planes are utilized for T1- and T2-weighted scans. Sequences include spin echo, fast spin echo, FLAIR, and diffusion weighted sequences. MRI FINDINGS: No bony calvarial defect is appreciated. Craniocervical junction and upper cervical cord are unremarkable. There is no MR evidence of paranasal sinus or intraorbital disease. There is generalized volume loss intracranially. Small vessel microvascular changes are noted in the periventricular white matter bilaterally. There is an old lacunar infarct in the periventricular white matter of the right frontal lobe. A tiny old lacunar infarct is noted in the right basal ganglia. No extra-axial fluid collection is seen. No mass or infarction is noted. No evidence of intracranial hemorrhage. IMPRESSION: Generalized volume loss. Small vessel microvascular changes. Old lacunar infarcts in the periventricular white matter of the right frontal lobe and in the right basal ganglia. No acute intracranial abnormality seen. Electronically Signed by Timothy Olson MD 11/19/2018 04:04 P
--- NOTE | 2018-11-19 14:36 | IPNPDOC ---
Text Note Date of Service The patient was seen on 11/19/18. NOTE HISTORY OF PRESENT ILLNESS: This is a 78 yo female [facility] resident wheelchair bound d/t stroke several years ago w/ PMH of recurrent UTI presented to [facility] with change in mental status. Son at bedside reported he was contacted by the [facility] nursing staff and was reported it was a mechanical fall and she did not hit any part of her body. It was noted that she was seen by one of her sons yesterday and noted that pt was not at baseline. Son at bedside reported pt intermittently is oriented X3, but he feels the mental status decline is gradual. It was noted that for 2 days prior to admission pt had been sleeping with her eyes closed and only opened her eyes for the first time today shortly after his arrival. Pt remains minimally responsive to questions; only answered 1 question with slurred speech. It was noted that pt has been having oral secretions and not been able to swallow the apple sauce in her mouth. ROS limited as pt minimally responsive. ROS: Limited ROS able to be obtained d/t pt's mental status. PHYSICAL EXAMINATION: GENERAL:Somnolent obese elderly female laying in bed but arousable. Answering questions with incomprehensible words. Not following commands HEENT: Head atraumatic CARDIOVASCULAR: Tachycardic, regular rhythm, no murmur, normal S1 and S2 RESPIRATORY: Clear to auscultation bilaterally. No rales, wheezing, or rhonchi ABDOMINAL: Bowel sounds present in all quad, mildly hypoactive, abdomen soft and nontender, obese. No guarding or distention EXTREMITIES: No to minimal edema in b/l LE NEUROLOGICAL: Somnolent but arousable. Opens eyes spontaneously. Minimally answering questions; incomprehensible words. Not following commands. IMAGING: Chest x-ray:Chronic stable changes. Cannot exclude subtle superimposed atelectasis. Head CT: age related atrophic changes Head MRI:Old lacunar infarcts in the periventricular white matter of the right frontal lobe and in the right basal ganglia Duplex b/l LE: no DVT noted Assessment and Plan: 1. Urinary tract infection -Urine cx pos for e-coli. - lactic acidosis resolved. Blood cx pos for gram neg letty -Tylenol PRN. Pt somnolent unable to obtain whether urinary symptoms present. Cont renally dosing IV zosyn; tylenol PRN 2. Bacteremia with gram neg letty in blood cxX1 -RR wnl. 2 other sets blood cx neg. Vital signs roughly stable. -Pt has baseline dementia thus difficult to determine if acute change of mental status. Lactic acidosis and fever resolved. -No echo at this time as pt's bacteremia is with gram neg letty. 3. SORAYA on CKD; SORAYA resolved - Baseline creatinine around 1.5 . Was 2.6, now 1.7. - Pt was on IV NS then IV LR 150ml/hr; d/c as pt has questionable pulmonary edema; pt will be given 1 time dose of Lasix 60mg IV d/t questionable pulm edema - GFR initially 20 upon admission, now 30. May adjust pt's Zosyn dose if GFR remains at this level or continue to improve 4. Elevated troponin 2/2 demand ischemia vs CKD -Trop mildly elevated but down trending. EKG shows sinus tach. Cont tele 5. Diabetes Mellitus, insulin dependent -Sliding scale with POC glucose. Hold home long acting insulin at this time as pt currently NPO 6. Alzheimer's dementia -Somnolence reported to be different from baseline -She is not alert enough to tolerate by by mouth at this time. Speech eval pending; NPO now. Oral care ordered. 7. Stage IV metastatic breast cancer -Pt does have bone disease likely explaining her elevated alkaline phosphatase -Resume Ibranae outpatient when stable. Continue with letrozole 8. Macrocytic Anemia, stablized -Likely 2/2 chemo vs B12/folate deficiency. Present since 09/2018 -Pt on Letrozole and Ibrance daily outpt; hold Ibrance during hospitalization -Hg decreased from baseline but stable since hospitalization -B12 and folate ordered however pt NPO at this time. s/p 1 time dose IV B12 and folate. 8. Thrombocytopenia - Plt 78. Possible 2/2 chemotherapy. Immature platelet fx wnl. Hold heparin for now. - No obvious sign of ecchymosis/bleeding noted at this time 9. History of CVA -She has LLE weakness as sequale, possible LUE weakness as well per son -wheelchair bound at her baseline. -Continue with Plavix, statin, and BP control with holding parameters however pt is NPO due to somnolence/lethargy -Will order PT when pt more alert 10. Hypertension -Continue with Norvasc, metoprolol, and lisinopril with holding parameters -Pt BP elevated with SBP peak in 180s; allow for mild to mod elevated BP at this time as V/Q scan cannot be done to r/o PE until 11/20/18 at 7AM. 11. Somnolence. -Minimal speech/answering questions with incomprehensible words; not following commands. Son reported changed from baseline. -Questionable d/t bacteremia with UTI vs r/o PE vs pulm edema. Pulse ox 93% on RA and 2L. Tachycardia; EKG shows sinus tach -Head CT and MRI showed no acute abnormalities. V/Q scan ordered to r/o PE but unable to be done until 11/20/18 at 7AM. Oxy therapy PRN -duplex US LE neg -CT abd/pelvis and liver profile ordered as pt indicated abd pt however questionable due to somnolence 11. Chronic constipation: Continue with bowel regimen I saw and evaluated the patient. I agree with the findings and plan of care as documented in the above note VS,Fishbone, I+O VS, Fishbone, I+O Laboratory Tests 11/19/18 05:25 Red Blood Count 2.89 L, Mean Corpuscular Volume 105.5 H, Mean Corpuscular He moglobin 33.6 H, Mean Corpuscular Hemoglobin Concent 31.8 L, Red Cell Distribution Width 16.4 H, Calcium Level 8.6 L Vital Signs Date Time Temp Pulse Resp B/P (MAP) Pulse Ox O2 Delivery O2 Flow Rate FiO2 11/19/18 12:00 97.7 113 18 166/88 (114) 97 2.0 11/17/18 13:54 Nasal Cannula I&O- Last 24 Hours up to 6 AM 11/19/18 06:00 Intake Total 3030 ml Output Total 2000 ml Balance 1030 ml ALICIA VILLANUEVA DO Nov 19, 2018 14:36 FELIZ BROUSSARD MD Nov 21, 2018 10:39
[2018-11-19] MEDS ORDERED: FUROSEMIDE 100 MG/10 ML VIAL (J1940) IV ONE (15:00)
[2018-11-19] MEDS ORDERED: THIAMINE HCL 200 MG/2 ML VIAL (J3411) IM ONE (15:00)
--- NOTE | 2018-11-19 15:37 | REP ---
Portable chest x-ray: Single view. History: Question decompensated CHF. Comparison chest x-ray: November 17, 2018. Findings: EKG electrodes are seen. Heart is mildly prominent. Pulmonary vasculature is not felt to be increased. No infiltrate is seen. Pleural angles are sharp. There is no evidence of pulmonary edema. Impression: Mildly prominent heart. No evidence of pleural effusion or pulmonary edema. Electronically Signed by Timothy Olson MD 11/19/2018 04:06 P
[2018-11-19 16:23] LABS: ALBUMIN 1.8 GM/DL (3.2-5.2); BILIRUBIN,DIRECT 0.2 MG/DL (0.0-0.2); BILIRUBIN,TOTAL 0.5 MG/DL (0.2-1.0); TOTAL PROTEIN 6.6 GM/DL (6.4-8.2)
--- NOTE | 2018-11-19 16:30 | REP ---
Clinical: Abdominal pain and septicemia. Technique: Axial noncontrast images from the lung bases to the pubic symphysis with coronal and sagittal re-formations. Comparison: 02/01/2017. Findings: Bilateral perinephric stranding and hydronephrosis with perinephric stranding is appreciated without evidence for ureteral obstruction. The bladder is unremarkable. A 2 mm nonobstructing left renal calculus is identified. Findings raise the possibility of pyelonephritis and require correlation with urinalysis. Liver, spleen, pancreas, gallbladder, and bilateral adrenal glands are normal for noncontrast evaluation. The enteric system demonstrates sigmoid diverticulosis and no evidence for bowel obstruction or acute inflammatory process. Pelvis demonstrates essentially normal bladder with evidence of prior hysterectomy. No ascites. No free air. No significant adenopathy. Atherosclerotic changes to the aorta and vasculature noted without aneurysm. Musculoskeletal structures demonstrate degenerative changes. Lung bases demonstrate pulmonary vascular congestion and interstitial edema without consolidation or effusion. Impression: 1. Bilateral perinephric stranding and hydronephrosis. Correlation with urinalysis is recommended to exclude pyelonephritis. No ureteral obstruction. 2. Diverticulosis without acute diverticulitis. 3. 2 mm nonobstructing left renal calculus. Electronically Signed by Louis Mayorga MD 11/19/2018 04:22 P
[2018-11-19] MEDS: amLODIPine 10 MG TAB PO SCH ×2 (17:56→21:43)
[2018-11-19] MEDS: THIAMINE 100 MG TAB PO SCH (18:32)
[2018-11-19] MEDS: ATORVASTATIN 20 MG TAB PO SCH (21:42)
[2018-11-19] MEDS: DULoxetine 30 MG CAP (CYMBALTA) PO SCH (21:42)
[2018-11-19] MEDS: DOCUSATE SODIUM 100 MG CAP PO SCH (21:43)
[2018-11-19] MEDS: FLUTICASONE PROP 0.05% NASAL SPRAY 16 GM (FLONASE) SCH (21:44)
[2018-11-20] VITALS (23 sets, daily range): BP systolic 131–180; BP diastolic 67–90; O2SAT 90–96
[2018-11-20] MEDS: HumaLOG INSULIN (NovoLOG) PER UNIT SC SCH ×5 (00:22→23:21)
[2018-11-20] MEDS: PIPERACILLIN/TAZOBACTAM SOD 2.25 GM in D5W MINI-BAG PLUS 50 ML IV SCH ×4 (05:20→23:21)
[2018-11-20 05:54] LABS: HEMATOCRIT 31.1 % (36.0-47.0); MEAN CORPUSCULAR HEMOGLOBIN 33.2 pg (27.0-33.0); MEAN CORPUSCULAR HGB CONC 32.2 g/dl (32.0-36.5); MEAN CORPUSCULAR VOLUME 103.3 fl (80.0-96.0); RED BLOOD COUNT 3.01 10^6/uL (4.00-5.40); WHITE BLOOD COUNT 4.8 10^3/uL (4.0-10.0)
[2018-11-20 06:00] LABS: PLATELET COUNT, AUTOMATED 92 10^3/uL (150-450)
[2018-11-20 06:12] LABS: CALCIUM LEVEL 9.2 MG/DL (8.8-10.2); CREATININE FOR GFR 1.74 MG/DL (0.55-1.30); POTASSIUM SERUM 3.3 MEQ/L (3.5-5.1)
[2018-11-20] MEDS ORDERED: POTASSIUM CHLORIDE 10 MEQ SR TABLET PO ONE ×2 (07:15→13:00)
--- NOTE | 2018-11-20 07:15 | CR.PDOC ---
General Date of Consultation: Nov 20, 2018 Consultation REASON FOR CONSULTATION/CHIEF COMPLAINT: Bilateral hydronephrosis. HISTORY OF PRESENT ILLNESS: 78-year-old female admitted for increasing somnolence and change in mental status. Patient has a history of recurrent urinary tract infections. Patient has an extensive medical history consisting of his CVA with left hemiparesis, Alzheimer's dementia, hypertension, diabetes mellitus, and metastatic breast carcinoma. Patient was found to have a urinary tract infection. Urine cultures showed Escherichia coli. Blood cultures are negative. Patient is awake and alert this morning with no complaints. She is oriented to name and place. A CT scan performed reported bilateral mild to moderate hydronephrosis. A renal ultrasound from 2012 also reported mild to moderate bilateral hydronephrosis. There was essentially no approver the past 7 years. There is no evidence of calculi or acute obstruction. Creatinine has been stable at 1.7. ALLERGIES: Please see below. HOME MEDICATIONS: Please see below. PAST MEDICAL HISTORY: 1. Metastatic breast carcinoma. 2. CVA with left hemiparesis. 3. Alzheimer's dementia 4. Hypertension 5. Diabetes mellitus PAST SURGICAL HISTORY: 1. A bladder surgery was reported in the history and physical, patient cannot remember any type of bladder surgery being performed REVIEW OF SYSTEMS: Patient is a poor historian and is unable to give an accurate review of systems PHYSICAL EXAM: Patient is awake and lying comfortably in her bed. Patient is oriented to person and place Respiratory: No distress Abdomen: Soft nontender with no CVA tenderness CT scan was reviewed in no acute obstruction is noted. LABORATORY DATA: Please see below. ASSESSMENT/PLAN: 1. Patient likely has a resolving urinary tract infection. Patient was found to have hydronephrosis on CT scan which is chronic and essentially unchanged from 2012. No treatment is necessary at this time. Patient can be switched to oral antibiotics and discharge when medically stable. Vital Signs/I&O Vital Signs Date Time Temp Pulse Resp B/P (MAP) Pulse Ox O2 Delivery O2 Flow Rate FiO2 11/20/18 04:00 97.5 101 22 173/87 (115) 93 2.0 11/20/18 04:00 Room Air I&O- Last 24 Hours up to 6 AM 11/20/18 06:00 Intake Total 1000 ml Output Total 3175 ml Balance -2175 ml Laboratory Data Labs 24H Laboratory Tests 2 11/19/18 11:19: Bedside Glucose (Misc Panel) 163H 11/19/18 15:40: Aspartate Amino Transf (AST/SGOT) 41H, Alanine Aminotransferase (ALT/SGPT) 21, Alkaline Phosphatase 151H, Total Bilirubin 0.5, Direct Bilirubin 0.2, Total Protein 6.6, Albumin 1.8#L, Albumin/Globulin Ratio 0.38L 11/19/18 18:18: Bedside Glucose (Misc Panel) 216H 11/20/18 00:14: Bedside Glucose (Misc Panel) 163H 11/20/18 05:26: Nucleated Red Blood Cells % (auto) 0.0, Immature Platelet Fraction 3.5, Anion Gap 7L, Glomerular Filtration Rate 30.0L, Blood Urea Nitrogen 42H, Creatinine 1.74H, Sodium Level 150H, Potassium Level 3.3L, Chloride Level 116H, Carbon Dioxide Level 27, Calcium Level 9.2 11/20/18 06:31: Bedside Glucose (Misc Panel) 180H CBC/BMP Laboratory Tests 11/20/18 05:26 Red Blood Count 3.01 L, Mean Corpuscular Volume 103.3 H, Mean Corpuscular Hemoglobin 33.2 H, Mean Corpuscular Hemoglobin Concent 32.2, Red Cell Distribution Width 16.2 H, Calcium Level 9.2 Microbiology Microbiology 11/18/18 Blood Culture - Preliminary, Resulted No growth after 24 hours . All specim... 11/17/18 Blood Culture - Preliminary, Resulted No Growth after 48 hours. All Specime... 11/17/18 Blood Culture - Preliminary, Resulted 11/17/18 Urine Culture - Final, Complete Escherichia Coli Allergies Coded Allergies: No Known Allergies (Verified , 07/24/11) Home Medications Scheduled Acetaminophen (Acetaminophen) 325 Mg Tablet, 650 MG PO TID, (Reported) Aluminum/Magnesium/Simeth (Mag-Al Plus Suspension) 30 Ml Oral.susp, 20 ML PO PC, (Reported) Amlodipine Besylate (Amlodipine Besylate) 10 Mg Tablet, 10 MG PO QPM, (Reported) Atorvastatin Calcium (Atorvastatin Calcium) 40 Mg Tab, 40 MG PO QPM, (Reported) Cholecalciferol (Vitamin D3) (Vitamin D3) 400 Unit Tab, 400 UNIT PO DAILY, (Reported) Clopidogrel Bisulfate (Plavix) 75 Mg Tab, 75 MG PO DAILY, (Reported) Docusate Sodium (Colace) 100 Mg Cap, 100 MG PO QPM, (Reported) Dulaglutide (Trulicity) 0.75 Mg/0.5 Ml Pen.injctr, 0.75 MG SC QWEEK, (Reported) FRIDAY EVENINGS Duloxetine HCl (Duloxetine HCl) 60 Mg Capsule.dr, 60 MG PO QPM, (Reported) Fluticasone Propionate (Flonase Allergy Relief) 9.9 Ml [place].susp, 1 SPRAY NA QHS, (Reported) Insulin Glargine,Hum.rec.anlog (Toujeo Solostar) 300 Unit/1 Ml Insuln.pen, 50 UNIT SC DAILY, (Reported) Insulin Lispro (Humalog Kwikpen U-100) 100 Unit/1 Ml Insuln.pen, 1 DOSE SC AC, (Reported) PER SLIDING SCALE Letrozole (Letrozole) 2.5 Mg Tablet, 2.5 MG PO DAILY for 30 Days, #30 Lidocaine (Aspercreme) 4% Adh..patch, 1 PATCH TOP DAILY, (Reported) APPLY TO POSTERIOR SHOULDER/SCAPULA Lisinopril (Lisinopril) 20 Mg Tab, 20 MG PO DAILY, (Reported) Melatonin (Melatonin) 5 Mg Tablet, 5 MG PO QHS, (Reported) Methyl Salicylate/Menthol (Bengay Greaseless Cream) 57 Gm Cream..g., 1 DOSE TOP TID, (Reported) APPLY SMALL AMOUNT TO LOWER BACK Metoprolol Tartrate (Lopressor) 50 Mg Tab, 50 MG PO BID, (Reported) Ondansetron HCl (Ondansetron HCl) 8 Mg Tablet, 8 MG PO BID, (Reported) Palbociclib (Ibrance) 100 Mg Capsule, 100 MG PO DAILY, (Reported) STARTED ON 11/03/18 FOR 21 DAYS Ranitidine HCl (Ranitidine HCl) 150 Mg Tablet, 1 TAB PO BID, (Reported) Vit C/E/Zn/Coppr/Lutein/Zeaxan (Preservision Areds 2 Softgel) 1 Each Capsule, 1 CAP PO BID, (Reported) Scheduled PRN Bisacodyl (Bisacodyl) 10 Mg Sup, 10 MG NJ DAILY PRN for CONSTIPATION, (Reported) Calcium Carbonate (Tums) 500 Mg Chw, 1,000 MG PO Q4H PRN for HEARTBURN, (Reported) Magnesium Hydroxide (Milk of Magnesia) 400 Mg/5 Ml Oral.susp, 30 M PO DAILY PRN for CONSTIPATION, (Reported) Ondansetron HCl (Zofran) 8 Mg Tablet, 8 MG PO DAILY PRN for NAUSEA, (Reported) Prochlorperazine (Prochlorperazine) 25 Mg Supp.rect, 25 MG NJ Q12H PRN for NAUSEA, (Reported) Sodium Phosphate,Gulf-Dibasic (Enema Pveyg-Xf-Yva) 1 Ebony Ebony, 1 EBONY NJ DAILY PRN for CONSTIPATION, (Reported) Jim Spaulding MD Nov 20, 2018 07:15
[2018-11-20 07:22] LABS: MAGNESIUM LEVEL 2.2 MG/DL (1.8-2.4)
[2018-11-20] MEDS: CLOPIDOGREL 75 MG TAB PO SCH (08:42)
[2018-11-20] MEDS: CYANOCOBALAMIN 500 MCG TAB PO SCH (08:42)
[2018-11-20] MEDS: ACETAMINOPHEN TAB 650MG DOSE (2X325MG) PO SCH ×3 (08:42→21:32)
[2018-11-20] MEDS: THIAMINE 100 MG TAB PO SCH (08:42)
[2018-11-20] MEDS: VITAMIN D (CHOLECALCIFEROL) 400 INTERNATIONAL UNITS TAB PO SCH (08:42)
[2018-11-20] MEDS: ONDANSETRON 4 MG TAB (S0181) PO SCH ×2 (08:43→21:34)
[2018-11-20] MEDS: FOLIC ACID 1 MG TAB PO SCH (08:43)
[2018-11-20] MEDS: LETROZOLE 2.5 MG TAB PO SCH (08:43)
[2018-11-20] MEDS: MAALOX 30 ML SUSP *UDC PO SCH ×3 (08:43→17:45)
[2018-11-20] MEDS: LIDOCAINE 5% (LIDODERM) PATCH TD SCH (08:43)
[2018-11-20] MEDS: METOPROLOL TART 50 MG TAB PO SCH ×2 (08:43→21:33)
[2018-11-20 08:46] LABS: ABG BASE EXCESS 2.2 (-2.0-2.0); ABG HCO3 25.1 MEQ/L (22.0-26.0); ABG O2 SATURATION 92.8 % (95.0-99.0); ABG PARTIAL PRESSURE CO2 33.1 mmHg (35.0-45.0); ABG PARTIAL PRESSURE O2 65.1 mmHg (75.0-100.0); ABG STANDARD HCO3 26.3 MEQ/L (22.0-26.0); ABG TOTAL CO2 26.1 MEQ/L (23.0-31.0); ABG pH (ARTERIAL) 7.498 UNITS (7.350-7.450)
[2018-11-20] MEDS ORDERED: MIRALAX *UNIT DOSE* 17GM PACKET PO PRN (09:00)
[2018-11-20] MEDS: FUROSEMIDE 40 MG/4 ML VIAL (J1940) IV SCH ×2 (12:33→16:28)
[2018-11-20] MEDS: D5W 1,000 ML IV SCH ×2 (12:34→21:25)
--- NOTE | 2018-11-20 14:16 | IPNPDOC ---
Text Note Date of Service The patient was seen on 11/20/18. NOTE HISTORY OF PRESENT ILLNESS: This is a 78 yo female [facility] resident wheelchair bound d/t stroke several years ago w/ PMH of recurrent UTI presented to [facility] with change in mental status. Son at bedside reported he was contacted by the [facility] nursing staff and was reported it was a mechanical fall and she did not hit any part of her body. It was noted that she was seen by one of her sons yesterday and noted that pt was not at baseline. Son at bedside reported pt intermittently is oriented X3, but he feels the mental status decline is gradual. It was noted that for 2 days prior to admission pt had been sleeping with her eyes closed and only opened her eyes for the first time today shortly after his arrival. It is noted that as of 11/19/18 evening pt has gradually become more alert and has been able to swallow meds with apple sauce/pudding. At the time of examination today pt is sleepy but awakes finally and it was noted that she is able to carry a conversation normally. Pt had been indicating that she wants pepsi. PHYSICAL EXAMINATION: GENERAL:Elderly female sleeping; difficult but arousable. Answering questions with short sentences. HEENT: Head atraumatic. No conjunctiva injections noted b/l. CARDIOVASCULAR: Tachycardic, regular rhythm, no murmur, normal S1 and S2 RESPIRATORY: Clear to auscultation bilaterally. No rales, wheezing, or rhonchi ABDOMINAL: Bowel sounds present in all quad, mildly hypoactive, abdomen soft and nontender, obese. No guarding or distention EXTREMITIES: No to minimal edema in b/l LE NEUROLOGICAL:Opens eyes spontaneously. Answering questions with short sentences grossly appropriately. IMAGING: Chest x-ray:Chronic stable changes. Cannot exclude subtle superimposed atelectasis. Head CT: age related atrophic changes Head MRI:Old lacunar infarcts in the periventricular white matter of the right frontal lobe and in the right basal ganglia Duplex b/l LE: no DVT noted Assessment and Plan: 1. Urinary tract infection -Urine cx pos for e-coli. - lactic acidosis resolved. Blood cx pos for e-coli as well -Tylenol PRN. Cont renally dosing IV zosyn, increased based on GFR; tylenol PRN 2. Bacteremia with e-coli, blood cx pos X1 -RR wnl. 2 other sets blood cx neg. No hypotension noted -Improved mentation. Lactic acidosis and fever resolved. -No echo at this time as pt's bacteremia is with gram neg letty. 3. SORAYA on CKD; SORAYA resolved - Baseline creatinine around 1.5 . Was 2.6, now 1.7. - Pt was on IV NS then IV LR 150ml/hr; d/c as pt has questionable pulmonary edema; pt will be given 1 time dose of Lasix 60mg IV d/t questionable pulm edema - Per team discussion, will start pt on D5W with IV lasix as pt has electrolyte disturbances with leg edema - GFR initially 20 upon admission, now 30. Zosyn dose increased as GFR remained improving compared to admission 4. Elevated troponin 2/2 demand ischemia vs CKD -Trop mildly elevated but down trending. EKG shows sinus tach. Cont tele 5. Diabetes Mellitus, insulin dependent -Sliding scale with POC glucose. Cont to hold home long acting insulin at this time as pt just transitioned from NPO to puree diet after passing swallow eval 6. Alzheimer's dementia -Upon admission somnolence reported to be different from baseline, now improved -Pt now on puree diet. Oral care 7. Stage IV metastatic breast cancer -Pt does have bone disease likely explaining her elevated alkaline phosphatase -Resume Ibranae outpatient when more stable. Continue with letrozole 8. Macrocytic Anemia, stablized -Likely 2/2 chemo vs B12/folate deficiency. Present since 09/2018 -Pt on Letrozole and Ibrance daily outpt; hold Ibrance during hospitalization -Hg decreased from baseline but stable since hospitalization -B12 and folate ordered however pt NPO at this time. s/p 1 time dose IV B12 and folate. 8. Thrombocytopenia - Plt 78. Possible 2/2 chemotherapy. Immature platelet fx wnl. Hold heparin for now. - No obvious sign of ecchymosis/bleeding noted at this time 9. History of CVA -She has LLE weakness as sequale, possible LUE weakness as well per son -wheelchair bound at her baseline. -Continue with Plavix, statin, and BP control with holding parameters. Hold lisinopril d/t SORAYA just resolved -PT ordered 10. Hypertension -Continue with Norvasc, metoprolol. Will hold lisinopril at this time d/t renal fxn -Elevated BP 168/82; Pt will also be started on Lasix d/t noted edema in b/l LE 11. Somnolence, resolved -Questionable d/t bacteremia with UTI vs r/o PE vs pulm edema. Tachycardia; EKG shows sinus tach -Head CT and MRI showed no acute abnormalities. Oxy therapy PRN -duplex US LE neg 12. Hypernatremia, likely d/t water deficit -Free water deficit 2.9L -per team discussion, will start pt on IV D5W and IV lasix d/t electrolyte disturbance and b/l LE edema. D5W 140ml/hr and Lasix 40mg BID -Cont to f/u BMP, may adjust based on BMP and clinical condition 13. Hypokalemia -K 3.2. -2 of 40meq KCl given -Per team discussion, will have pt on D5W and lasix as discussed above. -Cont to f/u BMP 14. Chronic constipation -Last BM recorded 11/17/18 -Pt has no complaint. Continue with bowel regimen 15. Bilateral hydronephrosis, chronic -b/l hydronephrosis noted in abd/pel CT, also prior US in 2011 -Pt has been having urinary output. -Urology consulted and recommended outpt follow up -Fair catheter d/c Dispo: Bacteremia with UTI. Pt now alert and awake. Uro consult recommended outpt follow upZosyn dose increased based on GFR improvement. I saw and evaluated the patient. I agree with the findings and plan of care as documented in the above note VS,Fishbone, I+O VS, Fishbone, I+O Laboratory Tests 11/20/18 05:26 Red Blood Count 3.01 L, Mean Corpuscular Volume 103.3 H, Mean Corpuscular Hemoglobin 33.2 H, Mean Corpuscular Hemoglobin Concent 32.2, Red Cell Distribution Width 16.2 H, Calcium Level 9.2 Vital Signs Date Time Temp Pulse Resp B/P (MAP) Pulse Ox O2 Delivery O2 Flow Rate FiO2 11/20/18 12:00 97.2 84 18 168/82 (110) 94 2.0 11/20/18 10:00 Room Air I&O- Last 24 Hours up to 6 AM 11/20/18 06:00 Intake Total 1000 ml Output Total 3175 ml Balance -2175 ml ALICIA VILLANUEVA DO Nov 20, 2018 14:16 FELIZ BROUSSARD MD Nov 21, 2018 10:45
[2018-11-20] MEDS ORDERED: METOPROLOL TART 12.5 MG PER 1/2 TAB PO ONE (17:30)
[2018-11-20] MEDS: FLUTICASONE PROP 0.05% NASAL SPRAY 16 GM (FLONASE) SCH (21:00)
[2018-11-20] MEDS: DOCUSATE SODIUM 100 MG CAP PO SCH (21:32)
[2018-11-20] MEDS: ATORVASTATIN 20 MG TAB PO SCH (21:33)
[2018-11-20] MEDS: DULoxetine 30 MG CAP (CYMBALTA) PO SCH (21:34)
[2018-11-21] VITALS (8 sets, daily range): BP systolic 126–172; BP diastolic 62–80; O2SAT 94–95
[2018-11-21] MEDS: PIPERACILLIN/TAZOBACTAM SOD 2.25 GM in D5W MINI-BAG PLUS 50 ML IV SCH ×4 (04:31→23:51)
[2018-11-21] MEDS: D5W 1,000 ML IV SCH (05:07)
[2018-11-21 06:20] LABS: HEMATOCRIT 30.3 % (36.0-47.0); HEMOGLOBIN 9.8 g/dl (12.0-15.5); MEAN CORPUSCULAR HEMOGLOBIN 32.5 pg (27.0-33.0); MEAN CORPUSCULAR HGB CONC 32.3 g/dl (32.0-36.5); MEAN CORPUSCULAR VOLUME 100.3 fl (80.0-96.0); PLATELET COUNT, AUTOMATED 101 10^3/uL (150-450); RED BLOOD COUNT 3.02 10^6/uL (4.00-5.40); WHITE BLOOD COUNT 3.9 10^3/uL (4.0-10.0)
[2018-11-21 06:42] LABS: CALCIUM LEVEL 8.1 MG/DL (8.8-10.2); CREATININE FOR GFR 1.76 MG/DL (0.55-1.30); GLOMERULAR FILTRATION RATE 29.6 (>32); POTASSIUM SERUM 3.5 MEQ/L (3.5-5.1)
[2018-11-21] MEDS: HumaLOG INSULIN (NovoLOG) PER UNIT SC SCH ×3 (06:47→18:00)
[2018-11-21 08:17] LABS: BASO % 0.8 % (0.0-1.0); EOS # 0.1 10^3/uL (0.0-0.5); EOS % 2.2 % (0.0-3.0); LYMPH # 0.6 10^3/uL (1.5-5.0); LYMPH % 15.3 % (24.0-44.0); MONO # 0.4 10^3/uL (0.0-0.8); MONO % 11.4 % (0.0-5.0); NEUTROPHILS # 2.6 10^3/uL (1.5-8.5); NEUTROPHILS % 69.5 % (36.0-66.0)
[2018-11-21] MEDS: LIDOCAINE 5% (LIDODERM) PATCH TD SCH (09:00)
[2018-11-21] MEDS ORDERED: LEVEMIR (INSULIN DETEMIR) 1 UNITS/0.01ML SC SCH (09:00)
[2018-11-21] MEDS: ACETAMINOPHEN TAB 650MG DOSE (2X325MG) PO SCH ×3 (09:34→21:20)
[2018-11-21] MEDS: MAALOX 30 ML SUSP *UDC PO SCH ×4 (09:34→17:39)
[2018-11-21] MEDS: VITAMIN D (CHOLECALCIFEROL) 400 INTERNATIONAL UNITS TAB PO SCH (09:34)
[2018-11-21] MEDS: ONDANSETRON 4 MG TAB (S0181) PO SCH ×2 (09:34→21:21)
[2018-11-21] MEDS: CYANOCOBALAMIN 500 MCG TAB PO SCH (09:34)
[2018-11-21] MEDS: FOLIC ACID 1 MG TAB PO SCH (09:35)
[2018-11-21] MEDS: LETROZOLE 2.5 MG TAB PO SCH (09:38)
[2018-11-21] MEDS: CLOPIDOGREL 75 MG TAB PO SCH (09:38)
[2018-11-21] MEDS: METOPROLOL TART 50 MG TAB PO SCH ×2 (09:38→21:20)
[2018-11-21] MEDS: THIAMINE 100 MG TAB PO SCH (09:39)
[2018-11-21] MEDS: LEVEMIR (INSULIN DETEMIR) 1 UNITS/0.01ML SC SCH (09:42)
--- NOTE | 2018-11-21 13:12 | IPNPDOC ---
Subjective Date Seen The patient was seen on 11/21/18. Subjective Chief Complaint/HPI Patient was examined at bedside. She appears to be alert and awake. Denies any complaints including dyspnea and indicating there's no pain anywhere. She is able to answer name and place only. Info and ROS difficult to obtain due to mental status/dementia General: Denies: Chills Constitutional: Denies: Chills, Fever Pulmonary: Denies: Dyspnea Cardiovascular: Denies: Chest Pain Gastrointestinal: Denies: Abdominal Pain Genitourinary: Denies: Dysuria Objective Physical Examination General Exam: Positive: Alert, Cooperative, No Acute Distress Eye Exam: Positive: Conjunctiva & lids normal; Negative: Sclera icteric ENT Exam: Positive: Atraumatic Neck Exam: Positive: Supple Chest Exam: Positive: Clear to auscultation, Normal air movement; Negative: Rales, Rhonchi Heart Exam: Positive: Rate Normal, Regular Rhythm, Normal S1, Normal S2 Abdomen Exam: Positive: Normal bowel sounds, Soft; Negative: Tenderness Extremity Exam: Positive: Normal pulses Psych Exam: Positive: Mood NL, Other (A&O to name and place); Negative: Memory Intact, Oriented x 3 Assessment /Plan Assessment 1. Urinary tract infection -Urine cx pos for e-coli. - lactic acidosis resolved. Blood cx pos for e-coli as well -Tylenol PRN. Cont renally dosing IV zosyn; tylenol PRN 2. Bacteremia with e-coli, blood cx pos X1 -RR wnl. 2 other sets blood cx neg. No hypotension noted -Improved mentation. Lactic acidosis and fever resolved. -No echo at this time as pt's bacteremia is with gram neg letty. 3. SORAYA on CKD; SORAYA resolved - Baseline creatinine around 1.5 . Was 2.6, now 1.7. - D/C D5W with IV lasix as pt has electrolyte disturbances resolved - GFR initially 20 upon admission, now 30. Zosyn dose increased as GFR remained improving compared to admission 4. Elevated troponin 2/2 demand ischemia vs CKD -Trop mildly elevated but down trending. EKG shows sinus tach. Cont tele 5. Diabetes Mellitus, insulin dependent -Sliding scale with POC glucose. Start levemir 25 units QD 6. Alzheimer's dementia -Upon admission somnolence reported to be different from baseline, now improved -Pt now on puree diet. Oral care 7. Stage IV metastatic breast cancer -Pt does have bone disease likely explaining her elevated alkaline phosphatase -Resume Ibranae outpatient when more stable. Continue with letrozole 8. Macrocytic Anemia, stablized -Likely 2/2 chemo vs B12/folate deficiency. Present since 09/2018 -Pt on Letrozole and Ibrance daily outpt; hold Ibrance during hospitalization -Hg decreased from baseline but stable since hospitalization -B12 and folate ordered however pt NPO at this time. s/p 1 time dose IV B12 and folate. 8. Thrombocytopenia - Possible 2/2 chemotherapy. Immature platelet fx wnl. Hold heparin for now. - No obvious sign of ecchymosis/bleeding noted at this time 9. History of CVA -She has LLE weakness as sequale, possible LUE weakness as well per son -wheelchair bound at her baseline. -Continue with Plavix, statin, and BP control with holding parameters. Hold lisinopril d/t SORAYA just resolved -PT eval 10. Hypertension -Continue with Norvasc, metoprolol. Will hold lisinopril at this time d/t renal fxn 11. Somnolence, resolved -Questionable d/t bacteremia with UTI vs r/o PE vs pulm edema. Tachycardia; EKG shows sinus tach -Head CT and MRI showed no acute abnormalities. Oxy therapy PRN -duplex US LE neg 12. Hypernatremia, likely d/t water deficit; resolved -Cont to f/u BMP, may adjust based on BMP and clinical condition 13. Hypokalemia; resolved -Cont to f/u BMP 14. Chronic constipation -Continue with bowel regimen 15. Bilateral hydronephrosis, chronic -b/l hydronephrosis noted in abd/pel CT, also prior US in 2011 -Pt has been having urinary output. -Urology consulted and recommended outpt follow up -Fair catheter d/c Dispo: Bacteremia with UTI. Alert and awake. Uro consult recommended outpt follow up. On Zosyn dose. likely dc back to [facility] on Mon I saw and evaluated the patient. I agree with the findings and plan of care as documented in the above note Plan/VTE VTE Prophylaxis Ordered?: Yes VS, I&O, 24H, Fishbone Vital Signs/I&O Vital Signs Date Time Temp Pulse Resp B/P (MAP) Pulse Ox O2 Delivery O2 Flow Rate FiO2 9/7/19 09:38 87 144/70 11/21/18 08:00 97.7 16 94 11/21/18 04:00 2.0 11/21/18 04:00 Room Air I&O- Last 24 Hours up to 6 AM 11/21/18 06:00 Intake Total 2880 ml Output Total 1350 ml Balance 1530 ml Laboratory Data 24H LABS Laboratory Tests 2 11/20/18 17:41: Bedside Glucose (Misc Panel) 397H 11/20/18 23:15: Bedside Glucose (Misc Panel) 314H 11/21/18 05:24: Immature Granulocyte % (Auto) 0.8, Neutrophils (%) (Auto) 69.5H, Lymphocytes (%) (Auto) 15.3L, Monocytes (%) (Auto) 11.4H, Eosinophils (%) (Auto) 2.2, Basophils (%) (Auto) 0.8, Immature Granulocyte # (Auto) 0.0, Neutrophils # (Auto) 2.6, Lymphocytes # (Auto) 0.6L, Monocytes # (Auto) 0.4, Eosinophils # (Auto) 0.1, Basophils # (Auto) 0.0, Nucleated Red Blood Cells % (auto) 0.0, Platelet Estimate , Anion Gap 8, Glomerular Filtration Rate 29.6L, Blood Urea Nitrogen 41H, Creatinine 1.76H, Sodium Level 141#, Potassium Level 3.5, Chloride Level 105, Carbon Dioxide Level 28, Calcium Level 8.1L 11/21/18 12:09: Bedside Glucose (Misc Panel) 205H CBC/BMP Laboratory Tests 11/21/18 05:24 Red Blood Count 3.02 L, Mean Corpuscular Volume 100.3 H, Mean Corpuscular Hemoglobin 32.5, Mean Corpuscular Hemoglobin Concent 32.3, Red Cell Distribution Width 15.7 H, Calcium Level 8.1 L Microbiology Microbiology 11/18/18 Blood Culture - Preliminary, Resulted No Growth after 72 hours. All specime... 11/17/18 Blood Culture - Preliminary, Resulted No Growth after 72 hours. All specime... 11/17/18 Blood Culture - Final, Complete Escherichia Coli 11/17/18 Urine Culture - Final, Complete Escherichia Coli ALICIA VILLANUEVA DO Nov 21, 2018 13:12 FELIZ BROUSSARD MD Nov 23, 2018 06:58
[2018-11-21] MEDS: DOCUSATE SODIUM 100 MG CAP PO SCH (21:19)
[2018-11-21] MEDS: ATORVASTATIN 20 MG TAB PO SCH (21:20)
[2018-11-21] MEDS: amLODIPine 10 MG TAB PO SCH (21:21)
[2018-11-21] MEDS: FLUTICASONE PROP 0.05% NASAL SPRAY 16 GM (FLONASE) SCH (21:21)
[2018-11-21] MEDS: DULoxetine 30 MG CAP (CYMBALTA) PO SCH (21:21)
[2018-11-22 06:00] VITALS: BP 148/82
[2018-11-22] MEDS: PIPERACILLIN/TAZOBACTAM SOD 2.25 GM in D5W MINI-BAG PLUS 50 ML IV SCH (06:07)
[2018-11-22] MEDS: HumaLOG INSULIN (NovoLOG) PER UNIT SC SCH ×4 (06:26→17:51)
[2018-11-22 07:15] LABS: MEAN CORPUSCULAR HEMOGLOBIN 33.4 pg (27.0-33.0); MEAN CORPUSCULAR HGB CONC 32.3 g/dl (32.0-36.5); MEAN CORPUSCULAR VOLUME 103.7 fl (80.0-96.0); PLATELET COUNT, AUTOMATED 125 10^3/uL (150-450); RED BLOOD COUNT 2.99 10^6/uL (4.00-5.40); WHITE BLOOD COUNT 3.7 10^3/uL (4.0-10.0)
[2018-11-22 07:37] LABS: CALCIUM LEVEL 8.3 MG/DL (8.8-10.2); CREATININE FOR GFR 1.95 MG/DL (0.55-1.30); GLOMERULAR FILTRATION RATE 26.3 (>32); POTASSIUM SERUM 3.7 MEQ/L (3.5-5.1)
[2018-11-22] MEDS: CLOPIDOGREL 75 MG TAB PO SCH (09:43)
[2018-11-22] MEDS: MAALOX 30 ML SUSP *UDC PO SCH ×3 (09:43→17:43)
[2018-11-22] MEDS: ONDANSETRON 4 MG TAB (S0181) PO SCH ×2 (09:43→21:41)
[2018-11-22] MEDS: VITAMIN D (CHOLECALCIFEROL) 400 INTERNATIONAL UNITS TAB PO SCH (09:43)
[2018-11-22] MEDS: CYANOCOBALAMIN 500 MCG TAB PO SCH (09:44)
[2018-11-22] MEDS: LETROZOLE 2.5 MG TAB PO SCH (09:44)
[2018-11-22] MEDS: ACETAMINOPHEN TAB 650MG DOSE (2X325MG) PO SCH ×5 (09:44→21:41)
[2018-11-22] MEDS: METOPROLOL TART 50 MG TAB PO SCH ×2 (09:44→21:42)
[2018-11-22] MEDS: THIAMINE 100 MG TAB PO SCH (09:44)
[2018-11-22] MEDS: FOLIC ACID 1 MG TAB PO SCH (09:44)
[2018-11-22] MEDS: LEVEMIR (INSULIN DETEMIR) 1 UNITS/0.01ML SC SCH (09:45)
[2018-11-22] MEDS: LIDOCAINE 5% (LIDODERM) PATCH TD SCH (09:46)
--- NOTE | 2018-11-22 11:34 | IPNPDOC ---
Date Seen The patient was seen on 11/22/18. Progress Note SUBJECTIVE: Patient tells me that she is feeling miserable she still has not gotten a Pepsi, she tells me that her whole body aches but otherwise when asked specifically patient denies chest pain, shortness breath, nausea, vomiting, fevers, chills OBJECTIVE PHYSICAL EXAMINATION: VITAL SIGNS: Please see below. GENERAL: Pleasant elderly female sitting up in bed awake alert but disoriented speaking in complete sentences no acute distress HEENT: Somewhat dry mucous membranes no elevation in CVP CARDIOVASCULAR: S1 S2 regular no additional heart sounds appreciated. Not tachycardic RESPIRATORY: Clear to auscultation bilaterally. ABDOMINAL: Bowel sounds present abdomen soft and nontender, obese EXTREMITIES: No clubbing cyanosis or edema NEUROLOGICAL: Spontaneously moves all 4 extremities cranial 2 through 12 grossly intact no gross focal deficits appreciated PSYCHOLOGICAL: Appropriate but disoriented as noted above LABORATORY DATA, MICROBIOLOGY: Please see below. IMAGING STUDIES: Chest x-ray:Chronic stable changes. Cannot exclude subtle superimposed atelectasis Head CT:Age related atrophy and microvascular ischemic changes. No acute intracranial hemorrhage, infarction, or mass/mass effect. Duplex ultrasound:No evidence of deep venous thrombosis of the bilateral lower extremity femoral popliteal venous system. MRI brain:Generalized volume loss. Small vessel microvascular changes. Old lacunar infarcts in the periventricular white matter of the right frontal lobe and in the right basal ganglia. No acute intracranial abnormality seen. CT abdomen and pelvis:1. Bilateral perinephric stranding and hydronephrosis. Correlation with urinalysis is recommended to exclude pyelonephritis. No ureteral obstruction. 2. Diverticulosis without acute diverticulitis. 3. 2 mm nonobstructing left renal calculus. ASSESSMENT AND PLAN: This is a 78-year-old female with resolving urinary tract infection. PROBLEMS: 1. Escherichia coli bacteremia, Urinary tract infection: Patient did present with fever or tachycardia lactic acidosis and abnormal UA. She is receiving significant fluid resuscitation and improvement in her mental status, Resolution of her fever. She did receive 2 days of diuresis to remove some of the excess fluid provider during fluid resuscitation at the time of her presentation. At this time she appears to be approaching her baseline and she'll likely complete 14 day course of antibiotics starting November 18 completing on the . I'll transition her to by mouth ciprofloxacin renally dosed 2. Acute on chronic kidney injury: Baseline creatinine appears to be close to 1.6 she does have some chronic disease she did have an acute infection and does appear to be stabilizing we'll continue to monitor daily 3. Abnormal troponin: Likely demand ischemia related secondary to the severity of her acute presentation could consider outpatient ischemic evaluation however depends on goals of care given her advanced age and dementia 4. Diabetes: Sliding scale while hospitalized finger 6 well-controlled 5. Alzheimer's dementia: She was initially obtunded and she is returned to her baseline cognitive status, tolerating her previous diet. 6. Stage IV metastatic breast cancer: We are holding chemotherapeutic agents while hospitalized she does have bone disease likely explaining her elevated alkaline phosphatase she had been responding well to chemotherapy in the outpatient setting continue outpatient follow-up when able. Continue with letrozole 7. Anemia: Likely related to chronic disease secondary to her malignancy has remained stable 8. Thrombocytopenia: Mild appears to be resolving with treatment of her infection 9. History of CVA: She has left-sided residual deficits and is wheelchair bound at her baseline continue with Plavix statin as well as BP control with holding parameters 10. Hypertension: Continue with Norvasc and metoprolol with holding parameters 11. Chronic constipation: Continue with bowel regimen 12. Mood disorder: Continue with Cymbalta DVT PROPHYLAXIS:Heparin twice a day Disposition: Likely back to [facility] tomorrow VS, I&O, 24H, Fishbone Vital Signs/I&O Vital Signs Date Time Temp Pulse Resp B/P (MAP) Pulse Ox O2 Delivery O2 Flow Rate FiO2 11/22/18 09:44 93 148/82 11/22/18 06:00 98.4 18 93 11/21/18 04:00 2.0 11/21/18 04:00 Room Air I&O- Last 24 Hours up to 6 AM 11/22/18 06:00 Intake Total 360 ml Output Total 1200 ml Balance -840 ml Laboratory Data 24H LABS Laboratory Tests 2 11/21/18 12:09: Bedside Glucose (Misc Panel) 205H 11/21/18 17:51: Bedside Glucose (Misc Panel) 135H 11/21/18 20:00: Bedside Glucose (Misc Panel) 168H 11/22/18 00:40: Bedside Glucose (Misc Panel) 149H 11/22/18 06:13: Bedside Glucose (Misc Panel) 149H 11/22/18 06:54: Nucleated Red Blood Cells % (auto) 0.0, Anion Gap 9, Glomerular Filtration Rate 26.3L, Blood Urea Nitrogen 47H, Creatinine 1.95H, Sodium Level 144, Potassium Level 3.7, Chloride Level 107, Carbon Dioxide Level 28, Calcium Level 8.3L CBC/BMP Laboratory Tests 11/22/18 06:54 Red Blood Count 2.99 L, Mean Corpuscular Volume 103.7 H, Mean Corpuscular Hemoglobin 33.4 H, Mean Corpuscular Hemoglobin Concent 32.3, Red Cell Distribution Width 15.6 H, Calcium Level 8.3 L Microbiology Microbiology 11/18/18 Blood Culture - Preliminary, Resulted No Growth after 72 hours. All specime... 11/17/18 Blood Culture - Preliminary, Resulted No Growth after 72 hours. All specime... 11/17/18 Blood Culture - Final, Complete Escherichia Coli 11/17/18 Urine Culture - Final, Complete Escherichia Coli FELIZ BROUSSARD MD Nov 22, 2018 11:34
[2018-11-22 15:19] VITALS: BP 138/65
[2018-11-22] MEDS: DOCUSATE SODIUM 100 MG CAP PO SCH ×2 (21:00→21:41)
[2018-11-22] MEDS: CEPHALEXIN 500 MG CAP PO SCH ×2 (21:00→21:40)
[2018-11-22] MEDS: DULoxetine 30 MG CAP (CYMBALTA) PO SCH ×2 (21:00→21:40)
[2018-11-22] MEDS: ATORVASTATIN 20 MG TAB PO SCH (21:40)
[2018-11-22] MEDS: HEPARIN SOD (PORCINE) 5000 UNITS/ML VIAL SQ SCH (21:40)
[2018-11-22] MEDS: FLUTICASONE PROP 0.05% NASAL SPRAY 16 GM (FLONASE) SCH (21:42)
[2018-11-22] MEDS: amLODIPine 10 MG TAB PO SCH (21:42)
[2018-11-22 22:00] VITALS: BP 139/65
[2018-11-23] MEDS: HumaLOG INSULIN (NovoLOG) PER UNIT SC SCH ×3 (00:46→12:38)
[2018-11-23 06:00] VITALS: BP 138/87
[2018-11-23 06:40] LABS: HEMATOCRIT 30.1 % (36.0-47.0); HEMOGLOBIN 9.6 g/dl (12.0-15.5); MEAN CORPUSCULAR HEMOGLOBIN 32.7 pg (27.0-33.0); MEAN CORPUSCULAR HGB CONC 31.9 g/dl (32.0-36.5); MEAN CORPUSCULAR VOLUME 102.4 fl (80.0-96.0); PLATELET COUNT, AUTOMATED 161 10^3/uL (150-450); RED BLOOD COUNT 2.94 10^6/uL (4.00-5.40)
[2018-11-23 06:59] LABS: CALCIUM LEVEL 9.1 MG/DL (8.8-10.2); CREATININE FOR GFR 1.77 MG/DL (0.55-1.30); GLOMERULAR FILTRATION RATE 29.4 (>32); POTASSIUM SERUM 3.9 MEQ/L (3.5-5.1)
[2018-11-23] MEDS: ACETAMINOPHEN TAB 650MG DOSE (2X325MG) PO SCH (07:45)
[2018-11-23] MEDS: VITAMIN D (CHOLECALCIFEROL) 400 INTERNATIONAL UNITS TAB PO SCH (07:46)
[2018-11-23] MEDS: CYANOCOBALAMIN 500 MCG TAB PO SCH (07:46)
[2018-11-23] MEDS: CLOPIDOGREL 75 MG TAB PO SCH (07:46)
[2018-11-23] MEDS: LETROZOLE 2.5 MG TAB PO SCH (07:46)
[2018-11-23] MEDS: THIAMINE 100 MG TAB PO SCH (07:46)
[2018-11-23] MEDS: FOLIC ACID 1 MG TAB PO SCH (07:46)
[2018-11-23] MEDS: CEPHALEXIN 500 MG CAP PO SCH (07:46)
[2018-11-23 07:47] VITALS: BP 138/87
[2018-11-23] MEDS: METOPROLOL TART 50 MG TAB PO SCH (07:47)
[2018-11-23] MEDS: ONDANSETRON 4 MG TAB (S0181) PO SCH (07:47)
[2018-11-23] MEDS: LEVEMIR (INSULIN DETEMIR) 1 UNITS/0.01ML SC SCH (07:47)
[2018-11-23] MEDS: HEPARIN SOD (PORCINE) 5000 UNITS/ML VIAL SQ SCH (07:48)
[2018-11-23] MEDS: LIDOCAINE 5% (LIDODERM) PATCH TD SCH (07:48)
[2018-11-23] MEDS: MAALOX 30 ML SUSP *UDC PO SCH (07:49)
[2018-11-23] MEDS ORDERED: CEPH500C PO (10:03)
--- NOTE | 2018-11-23 11:44 | DS.PDOC ---
Discharge Summary General Date of Admission Nov 17, 2018 at 14:29 Date of Discharge 11/23/18 Primary Care Physician: Antonia Thompson DO Attending Physician: FELIZ BROUSSARD MD Specialist/Consultants Involve: Jim Spaulding MD Discharge Summary PROCEDURES PERFORMED DURING STAY: None. ADMITTING/DISCHARGE DIAGNOSES: 1. Sepsis. She was so for score 6 on admission 2. Metabolic encephalopathy secondary to sepsis and infection 3. Escherichia coli bacteremia, urinary tract infection. 4. Acute kidney injury on chronic kidney disease 5. Elevated troponin level 6. Diabetes mellitus 7. Alzheimer's dementia 8. Stage IV metastatic breast cancer 9. Anemia. 10. Thrombocytopenia. 11.History of CVA. 12. Hypertension 13. Chronic constipation 14. Mood disorder COMPLICATIONS/CHIEF COMPLAINT: Altered mental status HISTORY OF PRESENT ILLNESS/HOSPITAL COURSE: Patient is an 78-year-old female who is brought to the emergency department on 11/17/2018 for being more lethargic and being less oriented. Patient had been sleeping for most the day prior to coming into the emergency department. Patient was not waking up and was unable to follow commands which is a decrease from her baseline. Patient has had a history of recurrent urinary tract infections which represents with similar complaints. In the emergency department patient was found have a temperature of 104.9F. Patient was tachycardic, tachypneic, had a lactic acid level of 2.8, had a leukocytosis with a bandemia, but was not hypotensive. A urinary analysis was performed and showed evidence of a urinary tract infection. Blood cultures and urine culture were both ordered when showed Escherichia coli present in both the urine and the blood. Patient was admitted into the hospital for IV fluid re suscitation for her acute kidney injury and her dehydration from her urinary tract infection and was started on IV Zosyn. The first 48 hours, the patient still remained lethargic and was difficult to arouse. On the second day of hospitalization, patient began to develop peripheral edema and crackles on exam. Patient was given a one-time dose of Lasix 60 mg IV. Patient woke up and became more alert however, she was still not oriented. At this time, we are able to wean her off the oxygen. She was able to maintain her saturations while awake however, that night she did have to go back on 1 L of oxygen via nasal cannula. Patient did remain tachycardic throughout the first 72 hours of her hospita lization. This was thought to be secondary to her infection, and her lethargy causing her not to be able to take her oral medications. Once the patient was able to start taking her oral medications, her tachycardia and hypertension resolved. A CT of the abdomen and pelvis was performed at Hospital course day 2 which showed bilateral hydronephrosis. A Fair catheter was inserted to decompress the urinary system and urology was consulted. They believe that this hydronephrosis was more chronic in the Fair catheter was discontinued. Hospital course day 3, patient continued on diuresis and was found to be hypernatremic and hyperchloremic. Her total body water deficit was calculated to be 2.9 L the patient received 3 L of D5 water. At this time, patient was stabilized and transferred out of the progressive care unit to the medical surgical floor. Patient was observed over the weekend and on 11/23/2018, patient was deemed ready for discharge back to [facility]. DISCHARGE MEDICATIONS: Please see below. ALLERGIES: Please see below. PHYSICAL EXAMINATION ON DISCHARGE: Vitals: (see below) General: No acute distress, laying comfortably in bed. HEENT: Moist mucous membranes. Neck: No JVD or lymphadenopathy Cardiac: RRR, No murmurs Pulm: Clear to auscultation b/l. No wheezing, rhonchi Abd: NT/ND + BS Ext: No edema LABORATORY DATA: Please see below. IMAGING: A chest x-ray performed on 11/17/2018 shows chronic stable changes, cannot exclude subtle superimposed atelectasis. A CT of the head performed on 11/19/2018 showed age-related atrophy and microvascular ischemic changes. No acute intracranial hemorrhage, infarction, or mass/mass effect. A duplex lower extremity bilateral ultrasound performed on 11/19/2018 showed no evidence of DVT in bilateral lower extremity. A brain MRI without contrast performed on 11/19/2017 showed generalized volume loss, small vessel microvascular changes. Old lacunar infarcts in the periventricular white matter of the right frontal lobe and in the right basal ganglia. No acute intracranial abnormality seen. A portable chest x-ray performed 11/19/2017 showed mildly prominent heart, no evidence of pleural effusion or pulmonary edema. A CT of the abdomen and pelvis without contrast performed on 11/19/2017 showed bilateral perinephric stranding and hydronephrosis, correlation with urinalysis recommended to exclude pyelonephritis. No ureteral obstruction. Diverticulosis without evidence of acute diverticulitis, and a 2 mm nonobstructing left renal calculus. PROGNOSIS: Guarded ACTIVITY: As tolerated. DIET: Pured diet with thickened liquids DISCHARGE PLAN/DISPOSITION: Discharge to [facility] facility DISCHARGE INSTRUCTIONS: 1. Follow-up with provider at [facility] when he arrived facility. 2. Continue with cephalexin 500 mg by mouth twice a day until 12/01/2018 for a t otal of 2 weeks of antibiotics. 3. Return to the emergency department if symptoms worsen. DISCHARGE CONDITION: Stable. I saw and evaluated the patient. I agree with the findings and plan of care as documented in the documenters note. I spent 45 minutes coordinating this patient's discharge. Vital Signs/I&Os Vital Signs Date Time Temp Pulse Resp B/P (MAP) Pulse Ox O2 Delivery O2 Flow Rate FiO2 11/23/18 07:47 95 138/87 11/23/18 06:00 98.1 18 95 11/21/18 04:00 2.0 11/21/18 04:00 Room Air I&O- Last 24 Hours up to 6 AM 11/23/18 06:00 Intake Total 510 ml Output Total 750 ml Balance -240 ml Laboratory Data Labs 24H Laboratory Tests 2 11/22/18 11:54: Bedside Glucose (Misc Panel) 340H 11/22/18 16:44: Bedside Glucose (Misc Panel) 121H 11/23/18 00:33: Bedside Glucose (Misc Panel) 168H 11/23/18 06:12: Nucleated Red Blood Cells % (auto) 0.0, Anion Gap 10, Glomerular Filtration Rate 29.4L, Blood Urea Nitrogen 53H, Creatinine 1.77H, Sodium Level 146H, Potassium Level 3.9, Chloride Level 109H, Carbon Dioxide Level 27, Calcium Level 9.1 11/23/18 06:48: Bedside Glucose (Misc Panel) 171H CBC/BMP Laboratory Tests 11/23/18 06:12 Red Blood Count 2.94 L, Mean Corpuscular Volume 102.4 H, Mean Corpuscular Hemoglobin 32.7, Mean Corpuscular Hemoglobin Concent 31.9 L, Red Cell Distribution Width 15.3 H, Calcium Level 9.1 FSBS Laboratory Tests Test 11/22/18 11:54 11/22/18 16:44 11/23/18 00:33 11/23/18 06:48 Range/Units Bedside Glucose (Misc Panel) 340 121 168 171 83-110 MG/DL Microbiology Microbiology 11/18/18 Blood Culture - Final, Complete NO GROWTH AFTER 5 DAYS 11/17/18 Blood Culture - Final, Complete NO GROWTH AFTER 5 DAYS 11/17/18 Blood Culture - Final, Complete Escherichia Coli 11/17/18 Urine Culture - Final, Complete Escherichia Coli Discharge Medications Scheduled Acetaminophen (Acetaminophen) 325 Mg Tablet, 650 MG PO TID, (Reported) Aluminum/Magnesium/Simeth (Mag-Al Plus Suspension) 30 Ml Oral.susp, 20 ML PO PC, (Reported) Amlodipine Besylate (Amlodipine Besylate) 10 Mg Tablet, 10 MG PO QPM, (Reported) Atorvastatin Calcium (Atorvastatin Calcium) 40 Mg Tab, 40 MG PO QPM, (Reported) Cephalexin (Cephalexin) 500 Mg Capsule, 500 MG PO BID Cholecalciferol (Vitamin D3) (Vitamin D3) 400 Unit Tab, 400 UNIT PO DAILY, (Reported) Clopidogrel Bisulfate (Plavix) 75 Mg Tab, 75 MG PO DAILY, (Reported) Docusate Sodium (Colace) 100 Mg Cap, 100 MG PO QPM, (Reported) Dulaglutide (Trulicity) 0.75 Mg/0.5 Ml Pen.injctr, 0.75 MG SC QWEEK, (Reported) FRIDAY EVENINGS Duloxetine HCl (Duloxetine HCl) 60 Mg Capsule.dr, 60 MG PO QPM, (Reported) Fluticasone Propionate (Flonase Allergy Relief) 9.9 Ml [place].susp, 1 SPRAY NA QHS, (Reported) Insulin Glargine,Hum.rec.anlog (Toujeo Solostar) 300 Unit/1 Ml Insuln.pen, 50 UNIT SC DAILY, (Reported) Insulin Lispro (Humalog Kwikpen U-100) 100 Unit/1 Ml Insuln.pen, 1 DOSE SC AC, (Reported) PER SLIDING SCALE Letrozole (Letrozole) 2.5 Mg Tablet, 2.5 MG PO DAILY Lidocaine (Aspercreme) 4% Adh..patch, 1 PATCH TOP DAILY, (Reported) APPLY TO POSTERIOR SHOULDER/SCAPULA Lisinopril (Lisinopril) 20 Mg Tab, 20 MG PO DAILY, (Reported) Melatonin (Melatonin) 5 Mg Tablet, 5 MG PO QHS, (Reported) Methyl Salicylate/Menthol (Bengay Greaseless Cream) 57 Gm Cream..g., 1 DOSE TOP TID, (Reported) APPLY SMALL AMOUNT TO LOWER BACK Metoprolol Tartrate (Lopressor) 50 Mg Tab, 50 MG PO BID, (Reported) Ondansetron HCl (Ondansetron HCl) 8 Mg Tablet, 8 MG PO BID, (Reported) Palbociclib (Ibrance) 100 Mg Capsule, 100 MG PO DAILY, (Reported) STARTED ON 11/03/18 FOR 21 DAYS Ranitidine HCl (Ranitidine HCl) 150 Mg Tablet, 1 TAB PO BID, (Reported) Vit C/E/Zn/Coppr/Lutein/Zeaxan (Preservision Areds 2 Softgel) 1 Each Capsule, 1 CAP PO BID, (Reported) Scheduled PRN Bisacodyl (Bisacodyl) 10 Mg Sup, 10 MG PA DAILY PRN for CONSTIPATION, (Reported) Calcium Carbonate (Tums) 500 Mg Chw, 1,000 MG PO Q4H PRN for HEARTBURN, (Reported) Magnesium Hydroxide (Milk of Magnesia) 400 Mg/5 Ml Oral.susp, 30 M PO DAILY PRN for CONSTIPATION, (Reported) Ondansetron HCl (Zofran) 8 Mg Tablet, 8 MG PO DAILY PRN for NAUSEA, (Reported) Prochlorperazine (Prochlorperazine) 25 Mg Supp.rect, 25 MG PA Q12H PRN for NAUSEA, (Reported) Sodium Phosphate,Posey-Dibasic (Enema Bajtq-Rz-Xnd) 1 Aneudy Aneudy, 1 ANEUDY PA DAILY PRN for CONSTIPATION, (Reported) Allergies Coded Allergies: No Known Allergies (Verified , 07/24/11) FRANCISCO WILSON DO Nov 23, 2018 11:44 FELIZ BROUSSARD MD Dec 01, 2018 12:07
== END 2018-11-23 13:10 | DRG 871 ==
LOC: M ED 11:09 → EDBD 11:09 → M ED INP 14:29 → M PCU 15:32 → M MS5PR 11-21 11:05
PROVIDERS: ADMIT Internal Medicine; ATTEND Internal Medicine
DX: A41.51 Sepsis due to Escherichia coli [E. coli] (principal); G93.41 Metabolic encephalopathy; N39.0 Urinary tract infection, site not specified; N17.9 Acute kidney failure, unspecified; N13.30 Unspecified hydronephrosis; E87.0 Hyperosmolality and hypernatremia; I69.354 Hemiplegia and hemiparesis following cerebral infarction affecting left non-dominant side; C79.9 Secondary malignant neoplasm of unspecified site; E11.9 Type 2 diabetes mellitus without complications; D69.6 Thrombocytopenia, unspecified; K59.00 Constipation, unspecified; F39 Unspecified mood [affective] disorder; G30.9 Alzheimer's disease, unspecified; F02.80 Dementia in other diseases classified elsewhere, unspecified severity, without behavioral disturbance, psychotic disturbance, mood disturbance, and anxiety; E86.0 Dehydration; Z79.899 Other long term (current) drug therapy; K21.9 Gastro-esophageal reflux disease without esophagitis; N18.9 Chronic kidney disease, unspecified; I12.9 Hypertensive chronic kidney disease with stage 1 through stage 4 chronic kidney disease, or unspecified chronic kidney disease; Z66 Do not resuscitate; C50.919 Malignant neoplasm of unspecified site of unspecified female breast; D63.8 Anemia in other chronic diseases classified elsewhere; D53.9 Nutritional anemia, unspecified

== ENCOUNTER → 2018-12-02 | Outpatient (REF) | payer MEDICARE, MEDICAID ==
[~2018-12-02] MED LIST changes: +AMLO10TA5 PO; +APAP325T4 PO; +ASPE4PAD TOP; +CEPH500C PO; +DULO60CA35 PO; +FLON1SPR; +HUMA100I5 SC; +MELATAB3 PO; +MILKSUS3 PO; +MYLASSUD PO; +ONDA8TAB7 PO; +PROC25SU24 PR; +RANI150T14 PO; +ZOFR8TAB24 PO
[2018-12-02 09:23] LABS: BASO # 0.1 10^3/uL (0.0-0.2); BASO % 1.7 % (0.0-1.0); EOS # 0.1 10^3/uL (0.0-0.5); EOS % 2.5 % (0.0-3.0); HEMATOCRIT 34.3 % (36.0-47.0); HEMOGLOBIN 10.8 g/dl (12.0-15.5); LYMPH % 26.8 % (24.0-44.0); MEAN CORPUSCULAR HEMOGLOBIN 32.8 pg (27.0-33.0); MEAN CORPUSCULAR HGB CONC 31.5 g/dl (32.0-36.5); MEAN CORPUSCULAR VOLUME 104.3 fl (80.0-96.0); MONO # 0.6 10^3/uL (0.0-0.8); MONO % 15.5 % (0.0-5.0); NEUTROPHILS # 1.9 10^3/uL (1.5-8.5); NEUTROPHILS % 52.9 % (36.0-66.0); PLATELET COUNT, AUTOMATED 282 10^3/uL (150-450); RED BLOOD COUNT 3.29 10^6/uL (4.00-5.40); WHITE BLOOD COUNT 3.6 10^3/uL (4.0-10.0)
[2018-12-02 09:49] LABS: ALBUMIN 2.7 GM/DL (3.2-5.2); BILIRUBIN,TOTAL 0.3 MG/DL (0.2-1.0); CALCIUM LEVEL 9.6 MG/DL (8.8-10.2); CREATININE FOR GFR 2.11 MG/DL (0.55-1.30); POTASSIUM SERUM 4.6 MEQ/L (3.5-5.1); TOTAL PROTEIN 6.4 GM/DL (6.4-8.2)
== END ==
PROVIDERS: ATTEND Physician Assistant
DX: C50.919 Malignant neoplasm of unspecified site of unspecified female breast (principal)

== ENCOUNTER → 2019-02-19 | Outpatient (REF) | payer MEDICARE, MEDICAID ==
[2019-02-19 12:50] LABS: AMORPHOUS SEDIMENT SMALL (NEGATIVE); APPEARANCE, URINE CLOUDY (CLEAR); BACTERIA, URINE AUTO 2+ (NEGATIVE); BILIRUBIN, URINE AUTO NEGATIVE (NEGATIVE); BLOOD, URINE BLOOD NEGATIVE (NEGATIVE); COLOR, URINE AMBER (YELLOW); GLUCOSE, URINE (UA) AUTO 3+ mg/dL (NEGATIVE); KETONE, URINE AUTO NEGATIVE (NEGATIVE); LEUKOCYTE ESTERASE, URINE AUTO 3+ (NEGATIVE); MUCUS, URINE SMALL (NEGATIVE); NITRITE, URINE AUTO NEGATIVE (NEGATIVE); PROTEIN, URINE AUTO 2+ mg/dL (NEGATIVE); RBC, URINE AUTO 27 /HPF (0-3); SPECIFIC GRAVITY URINE AUTO 1.013 (1.002-1.035); SQUAMOUS EPITHELIAL CELL UR AU 0 /HPF (0-6); UROBILINOGEN, URINE AUTO 0.2 mg/dL (0.0-2.0); WBC, URINE AUTO TNTC /HPF (0-3)
== END ==
PROVIDERS: ATTEND Physician Assistant
DX: R82.79 Other abnormal findings on microbiological examination of urine (principal)

== ENCOUNTER → 2019-03-16 | Outpatient (REF) | payer MEDICARE, MEDICAID ==
--- NOTE | 2019-03-16 12:00 | REPPI ---
Clinical: Left knee pain. Technique: AP and lateral views of the left knee. Findings: No acute fracture dislocation. No effusion. Impression: No acute fracture or dislocation. Electronically Signed by Louis Mayorga MD 03/16/2019 11:52 A
== END ==
PROVIDERS: ATTEND Internal Medicine
DX: M25.562 Pain in left knee (principal)

== ENCOUNTER → 2019-05-24 | Outpatient (REF) | payer MEDICARE, MEDICAID ==
[~2019-05-24] MED LIST changes: +ONDA8TAB10 PO; -ONDA8TAB7 PO
--- NOTE | 2019-05-24 17:23 | REPPI ---
Left index finger series: Three views obtained portably. History: Swelling. Findings: There is some soft tissue swelling about the proximal and middle phalanx. There is osteoarthritic spurring at the second and third metacarpal phalangeal joint and at the first carpal metacarpal articulation. There is osteoarthritic spurring at the IP joint of the thumb and at the DIP joint of the index finger. There is no evidence of fracture or opaque foreign body. There is considerable overlap on the lateral projection. Impression: Osteoarthritic changes and diffuse osteoporosis. Soft tissue swelling about the proximal phalanx and PIP joint. No fracture visualized on these views. Electronically Signed by Timothy Olson MD 05/24/2019 05:46 P
== END ==
PROVIDERS: ATTEND Internal Medicine
DX: M79.645 Pain in left finger(s) (principal)

== ENCOUNTER → 2019-06-24 | Outpatient (REF) | payer MEDICARE, MEDICAID ==
[2019-06-24 14:53] LABS: HEMATOCRIT 40.7 % (36.0-47.0); HEMOGLOBIN 13.1 g/dl (12.0-15.5); MEAN CORPUSCULAR HGB CONC 32.2 g/dl (32.0-36.5); MEAN CORPUSCULAR VOLUME 96.2 fl (80.0-96.0); PLATELET COUNT, AUTOMATED 193 10^3/uL (150-450); RED BLOOD COUNT 4.23 10^6/uL (4.00-5.40); WHITE BLOOD COUNT 7.2 10^3/uL (4.0-10.0)
[2019-06-24 15:15] LABS: CALCIUM LEVEL 9.1 MG/DL (8.8-10.2); CREATININE FOR GFR 1.68 MG/DL (0.55-1.30); GLOMERULAR FILTRATION RATE 31.1 (>32); POTASSIUM SERUM 4.8 MEQ/L (3.5-5.1)
== END ==
PROVIDERS: ATTEND Internal Medicine
DX: R53.83 Other fatigue (principal)

== ENCOUNTER → 2019-06-28 | Outpatient (REF) | payer MEDICARE, MEDICAID ==
[2019-06-28 12:00] LABS: HEMATOCRIT 39.3 % (36.0-47.0); HEMOGLOBIN 12.7 g/dl (12.0-15.5); MEAN CORPUSCULAR HEMOGLOBIN 30.5 pg (27.0-33.0); MEAN CORPUSCULAR HGB CONC 32.3 g/dl (32.0-36.5); MEAN CORPUSCULAR VOLUME 94.5 fl (80.0-96.0); PLATELET COUNT, AUTOMATED 203 10^3/uL (150-450); RED BLOOD COUNT 4.16 10^6/uL (4.00-5.40); WHITE BLOOD COUNT 5.5 10^3/uL (4.0-10.0)
[2019-06-28 12:44] LABS: CREATININE FOR GFR 1.39 MG/DL (0.55-1.30); GLOMERULAR FILTRATION RATE 38.7 (>32); POTASSIUM SERUM 4.3 MEQ/L (3.5-5.1)
[2019-06-28 12:57] LABS: APPEARANCE, URINE CLEAR (CLEAR); BACTERIA, URINE AUTO NEGATIVE (NEGATIVE); BILIRUBIN, URINE AUTO NEGATIVE (NEGATIVE); BLOOD, URINE BLOOD NEGATIVE (NEGATIVE); COLOR, URINE YELLOW (YELLOW); GLUCOSE, URINE (UA) AUTO NEGATIVE (NEGATIVE); KETONE, URINE AUTO NEGATIVE (NEGATIVE); LEUKOCYTE ESTERASE, URINE AUTO NEGATIVE (NEGATIVE); MUCUS, URINE SMALL (NEGATIVE); NITRITE, URINE AUTO NEGATIVE (NEGATIVE); PROTEIN, URINE AUTO 1+ mg/dL (NEGATIVE); RBC, URINE AUTO 0 /HPF (0-3); SPECIFIC GRAVITY URINE AUTO 1.016 (1.002-1.035); SQUAMOUS EPITHELIAL CELL UR AU 2 /HPF (0-6); UROBILINOGEN, URINE AUTO 0.2 mg/dL (0.0-2.0); WBC, URINE AUTO 1 /HPF (0-3)
== END ==
PROVIDERS: ATTEND Physician Assistant
DX: R11.0 Nausea (principal); Z79.899 Other long term (current) drug therapy

== ENCOUNTER → 2019-08-02 | Outpatient (REF) | PROVIDERS: ATTEND Internal Medicine | DX: Z03.818 Encounter for observation for suspected exposure to other biological agents ruled out (principal) ==

== ENCOUNTER → 2019-08-19 | Outpatient (CLI) | payer MEDICARE, MEDICAID ==
--- NOTE | 2019-08-19 14:25 | REPVR ---
PROCEDURE INFORMATION: Exam: CT Head Without Contrast Exam date and time: 08/19/2019 2:04 PM Age: 79 years old Clinical indication: Injury or trauma; Fall; Initial encounter; Blunt trauma (contusions or hematomas); Additional info: R/O bleed, S/P fall TECHNIQUE: Imaging protocol: Computed tomography of the head without contrast. Radiation optimization: All CT scans at this facility use at least one of these dose optimization techniques: automated exposure control; mA and/or kV adjustment per patient size (includes targeted exams where dose is matched to clinical indication); or iterative reconstruction. COMPARISON: CT Head without contrast 11/19/2018 8:17 AM FINDINGS: Brain: Lucencies in the white matter, most suggestive of chronic microvascular ischemic disease, do not appear significantly changed. There is no evidence for large acute cortical infarct. No intracranial hemorrhage or extraaxial collection is identified. There is no significant intracranial mass effect. Ventricles: The ventricles and sulci are stable in configuration, with similar atrophy. Bones/joints: Unremarkable. No acute fracture. Sinuses: Visualized sinuses are unremarkable. No fluid levels. Mastoid air cells: Visualized mastoid air cells are well aerated. Vasculature: Intracranial atherosclerotic vascular calcifications are again present. Soft tissues: Unremarkable. IMPRESSION: No CT evidence for acute intracranial abnormality or significant change since 11/19/18. Electronically signed by: Brent Sutton On 08/19/2019 14:25:23 PM
== END ==
LOC: M RAD 13:39
PROVIDERS: ATTEND Internal Medicine
DX: S09.90XA Unspecified injury of head, initial encounter (principal); I67.2 Cerebral atherosclerosis; W19.XXXA Unspecified fall, initial encounter; Y92.9 Unspecified place or not applicable

== ENCOUNTER → 2019-10-31 | Outpatient (REF) | payer MEDICARE, MEDICAID ==
[~2019-10-31] MED LIST changes: -AMLO10TA5 PO; +AMLO1TAB25 PO; -ASPI81TA85 PO; +ASPI81TA86 PO
[2020-01-04 21:42] LABS: APPEARANCE, URINE MANUAL HAZY (CLEAR); COLOR, URINE MANUAL YELLOW (YELLOW)
[2020-01-04 21:43] LABS: BILIRUBIN, URINE MANUAL NEGATIVE (NEGATIVE); BLOOD URINE MANUAL NEGATIVE (NEGATIVE); GLUCOSE, URINE (UA) MANUAL NEGATIVE (NEGATIVE); KETONE, URINE MANUAL 1+ mg/dL (NEGATIVE); LEUKOCYTE ESTERASE, URINE MAN TRACE (NEGATIVE); NITRITE, URINE MANUAL NEGATIVE (NEGATIVE); PROTEIN, URINE MANUAL 1+ mg/dL (NEGATIVE); UROBILINOGEN, URINE MANUAL NORMAL (NORMAL)
[2020-01-04 21:44] LABS: BACTERIA, URINE SMALL AMOUNT; SQUAMOUS EPITHELIAL CELL URINE LARGE AMOUNT /hpf (SMALL AMT)
[2020-01-04 21:45] LABS: MUCUS, URINE MOD AMOUNT (NEGATIVE)
== END ==
PROVIDERS: ATTEND Nurse Practitioner Family
DX: R53.83 Other fatigue (principal)

== ENCOUNTER → 2019-11-01 | Outpatient (REF) | payer MEDICARE, MEDICAID ==
[2020-01-08 11:41] LABS: HEMOGLOBIN 13.1 g/dl (12.0-15.5); MEAN CORPUSCULAR HEMOGLOBIN 31.2 pg (27.0-33.0); MEAN CORPUSCULAR HGB CONC 31.2 g/dl (32.0-36.5); PLATELET COUNT, AUTOMATED 210 10^3/uL (150-450); WHITE BLOOD COUNT 8.9 10^3/uL (4.0-10.0)
== END ==
PROVIDERS: ATTEND Nurse Practitioner Adult Health
DX: R53.83 Other fatigue (principal); R73.09 Other abnormal glucose